=== PATIENT | female | born 1950 | race Caucasian/White ===

== ENCOUNTER → 2017-08-31 | Outpatient (CLI) | payer BC ==
[~2017-08-31] MED LIST: CLTP PO; HYDC25 PO; LISI-725 PO; MECL25TA2 PO; METF1000 PO; OXYC-57 PO; VIT D2 PO; XRL10 PO
--- NOTE | 2017-09-01 07:42 | MAMMOGRAPHY REPORT ---
BILATERAL DIGITAL SCREENING MAMMOGRAM WITH CAD: 08/31/2017 CLINICAL HISTORY: Routine screening. Patient has no complaints. TECHNIQUE: Bilateral CC and MLO views were obtained. Current study was also evaluated with a Compute r Aided Detection (CAD) system. COMPARISON: Comparison is made to exams dated: 08/28/2016 mammogram, 08/27/2015 mammogram, 08/25/2014 mammogram, 08/24/2013 mammogram, 08/23/2012 mammogram, and 11/25/2011 mammogram - [facility] enter. BREAST COMPOSITION: The tissue of both breasts is heterogeneously dense, which may obscure small mas ses. FINDINGS: There are diffuse bilateral benign-appearing round, punctate and rim calcifications, some of which are in stable groupings. No new suspicious mass, architectural distortion, asymmetry or susp icious microcalcifications is seen. IMPRESSION: ACR BI-RADS CATEGORY 2: BENIGN There is no mammographic evidence of malignancy. A 1 year screening mammogram is recommended. The pa tient will receive written notification of the results. Approximately 10% of breast cancers are not detected with mammography. A negative mammographic report should not delay biopsy if a clinically suggestive mass is present. Anaid Alexandra M.D. ay/:08/31/2017 15:25:54 Systems Applications Programming Lead: Arcelia GAGNON(R)(Alden)(BD), [facility] letter sent: Normal 1/2 BI-RADS Code: ACR BI-RADS Category 2: Benign
== END | disposition home or self-care (01) ==
LOC: C.MAMM 10:03
PROVIDERS: ATTEND Family Medicine
DX: Z12.31 Encounter for screening mammogram for malignant neoplasm of breast (principal)

== ENCOUNTER 2024-02-03 10:38 | Inpatient (IN) ==
--- NOTE | 2024-02-03 10:59 | Emergency Department Note ---
History of Present Illness General Chief complaint: Fall Stated complaint: FALL, SHOULDER DISLOCATION Time Seen by Provider: 02/03/24 10:45 Source: patient, RN notes reviewed and old records reviewed (I have reviewed the EMS notes from today) Mode of arrival: EMS Limitations: no limitations History of Present Illness This patient is 72-year-old female who was [place] [employer] today and she fell. She said she was feeling okay prior she was walking down an aisle and she said she felt like she was going to fall. She tried to reach out and touch a table and managed to fall she injured her left shoulder she also said her cheek hurt a little bit but she does not think she hit her head. She did not pass out she had no recent illness however her about a week ago and she has had some decreased appetite since then she denies any suicidal or homicidal ideations or overdose. Prior to falling she did not have any other symptoms such as diaphoresis or chest pain. Denies chest pain shortness breath or pleurisy at present. Hurts when she moves her left arm. She did receive IV fentanyl on route. No headache. no change in vision .no abdominal pain . no pain in the legs. No focal numbness or weakness Home Medications Medication Instructions Recorded Confirmed Type amlodipine 5 mg tablet 5 mg PO QPM 02/03/24 02/03/24 History aspirin 81 mg tablet,delayed 81 mg PO PM 02/03/24 02/03/24 History release atorvastatin 40 mg tablet 40 mg PO QPM 02/03/24 02/03/24 History cyanocobalamin (vitamin B-12) 1,000 mcg PO DAILY 02/03/24 02/03/24 History 1,000 mcg tablet (Vitamin B-12) hydrochlorothiazide 25 mg tablet 25 mg PO QPM 02/03/24 02/03/24 History lisinopril 40 mg tablet 40 mg PO QAM 02/03/24 02/03/24 History metformin 500 mg tablet,extended 1,000 mg PO BID 02/03/24 02/03/24 History release 24 hr repaglinide 1 mg tablet See Rx Instructions .Route .COMPLEX 02/03/24 02/03/24 History Allergies Allergy/AdvReac Type Severity Reaction Status Date / Time naproxen Allergy Unknown TACHYCARDIA, Verified 02/03/24 12:17 DIZZINESS Past Med/Surg History Medical History (Updated 02/03/24 @ 18:20 by Carl Tsai MD) Proximal humerus fracture Anxiety Diabetes Hypercholesterolemia Hypertension Surgical History (Updated 02/03/24 @ 16:49 by Rafael Serrato PA-C) No pertinent past surgical history Family History (Updated 02/03/24 @ 16:49 by Rafael Serrato PA-C) Other No pertinent family history Social History (Updated 02/03/24 @ 16:50 by Rafael Serrato PA-C) Smoking Status: Never smoker Second Hand Exposure: Yes; Do You Dip or Chew Tobacco: No; Tobacco Cessation Education Requested by Patient: No Hx Alcohol Use: No Hx Substance Use: No Preferred Language: Croatian Communication Ability: Effective Compliance Director Required: No Beliefs That Will Affect Care: None marital status: / Current Living Situation: Alone current occupational status: retired Other Information That Helps Us Care for You: No Feels Safe at Home: Yes Safety Concerns: Feels Safe At This Time Assistive Devices: Glasses Immunizations: Past medical historyhypertension, diabetes.denies that she is on a blood thinner Social historyshe was recently Review of Systems A total of 10 systems reviewed and were otherwise negative Physical Exam Vital Signs Vital Signs - 24 hr 02/03/24 10:54 02/03/24 12:00 02/03/24 12:20 Temperature 36.7 C Temperature Source Oral Pulse Rate 81 84 86 Pulse Rate from SpO2 Sensor 85 Respiratory Rate 18 17 Respiratory Effort / Characteristics Non-Labored Spontaneous Respiratory Depth Normal Respiratory Pattern Regular Blood Pressure 136/77 152/105 H Blood Pressure Mean 96 120 Pulse Oximetry 92 93 Oxygen Delivery Method Room Air Sepsis Recent Fever Within 48 Hours No Sepsis New/Unexplained Change in Mental Status N/A Sepsis Action Taken by Nursing No Action Required General: Well developed well nourished older female male who is sitting upright in bed in no acute distress, breathing comfortably on room air. Normal speech HEENT: Normal cephalic atraumatic. Pupils are equal round and reactive to light. Extraocular movements are intact. Oropharynx is pink with moist mucous membranes. No swelling of the mouth lips or tongue. Neck: Supple with a midline trachea. No meningeal signs or stiffness, no JVD or bruits. No Stridor. Chest: Clear to auscultation bilaterally. No wheezes or rhonchi. No increased work of breathing. Heart: Regular rate and rhythm without murmurs or gallops. Abdomen: Soft nontender, nondistended without rebound guarding or rigidity. Extremities: No cyanosis clubbing or edema. No calf tenderness or assymetry. She does have some significant swelling of the left shoulder and is bruised anteriorly. She has limitation movement secondary to pain distally in the hand she has normal motor and sensation and pulse with limitation secondary to pain Spine/Back. Non tender to palpation. No CVA tenderness Skin: Good turgor without rashes. Neurologic exam: Cranial nerves two through 12 are intact. Motor and sensation are intact and symmetrical throughout. Course Administered Medications Acetaminophen (Acetaminophen 500 Mg Tab) 1,000 mg PO Q8H [facility] Stop: 03/04/24 15:50 Last Admin: 02/03/24 15:54 Dose: Not Given Documented By: JOHN Insulin Aspart (Insulin Aspart Per Unit Charge) 0 units SC ACHS KAEL Stop: 03/04/24 16:29 Last Admin: 02/03/24 17:08 Dose: 5 units Documented By: SAHRA Co-signed By: JOHN Oxycodone HCl (Oxycodone Hcl Ir 5 Mg Tab (Immediate Release)) 5 mg PO Q6H PRN PRN Reason: Moderate Pain (Scale 4, 5, 6) Stop: 02/17/24 15:50 Last Admin: 02/03/24 16:26 Dose: 5 mg Documented By: SAHRA Discontinued Medications Acetaminophen (Ofirmev) 1,000 mg in 100 mls @ 400 mls/hr IV NOW STA Stop: 02/03/24 13:48 Last Infusion: 02/03/24 15:28 Dose: Infused Documented By: Admin: 02/03/24 14:08 Dose: 400 mls/hr Documented By: CHARLES Medical Decision Making Differential Diagnosis Fall, syncope, shoulder fracture, shoulder dislocation, arrhythmia, electrolyte or metabolic abnormality, depression Medical Records Attestation: I reviewed the patient's medical records. Home Medications Current Medication List: was personally reviewed by me Laboratory Data Attestation: I reviewed the patient's lab results. 02/03/24 11:21 02/03/24 11:21 Lab Results 02/03/24 Range/Units 11:21 WBC 8.62 (4.8-10.8) K/ul RBC 4.67 (4.20-5.40) M/uL Hgb 14.4 (12.0-16.0) g/dl Hct 41.8 (37.0-47.0) % MCV 89.5 (80.0-100.0) fL MCH 30.8 (25.0-34.0) pg MCHC 34.4 (32.0-36.0) g/dL RDW Std Deviation 39.7 (36.4-46.3) fL RDW Coeff of Janet 12.2 (11.5-14.5) % Plt Count 263 (130-400) K/uL MPV 10.0 (9.4-12.4) fL Immature Gran % (Auto) 0.7 % Neut % (Auto) 72.6 % Lymph % (Auto) 17.1 % Phelps % (Auto) 7.9 % Eos % (Auto) 1.2 % Baso % (Auto) 0.5 % Neut # (Auto) 6.27 (1.40-6.50) K/uL Lymph # (Auto) 1.47 (1.20-3.40) K/uL Phelps # (Auto) 0.68 H (0.11-0.59) K/uL Eos # (Auto) 0.10 (0.00-0.50) K/uL Baso # (Auto) 0.04 (0.00-0.20) K/uL Immature Gran # (Auto) 0.06 (0.01-0.20) K/uL PT 11.1 (9.0-12.0) Seconds INR 1.0 (0.9-1.1) APTT 24 (21-31) Seconds PTT Ratio 0.9 Sodium 138 (136-145) mmol/L Potassium 3.7 (3.5-5.1) mmol/L Chloride 101 (98-107) mmol/L Carbon Dioxide 28 (21-32) mmol/L Anion Gap 9 (3-11) BUN 10 (6-23) mg/dl Creatinine 0.59 L (0.6-1.2) mg/dl Est Cr Clr Drug Dosing 82.3 ml/min Est GFR ( Amer) 105.4 ml/min Est GFR (Non-Af Amer) 90.9 ml/min BUN/Creatinine Ratio 16.9 (10-20) Glucose 300 H (70-99(Fasting)) mg/dl Calcium 9.8 (8.6-10.3) mg/dl Total Bilirubin 0.8 (0.2-1.0) mg/dl AST 16 (13-39) U/L ALT 16 (7-52) U/L Alkaline Phosphatase 73 (34-104) U/L Troponin I High Sens 3.7 (0-14) pg/ml Total Protein 6.3 (6.0-8.3) gm/dl Albumin 4.1 (3.4-5.0) gm/dl Globulin 2.2 L (2.5-4.0) gm/dl Albumin/Globulin Ratio 1.9 (0.9-2) Lipase 22 (11-82) U/L Imaging Data Attestation: I personally reviewed and interpreted this imaging study as follows: My Impression: Chest x-rayno acute infiltrate, failure, pneumothorax seen. Left shoulder x-raythere is a comminuted is displaced fracture of the humeral neck. The head appears to be anatomically not dislocated Radiologist's Impression: Shoulder X-Ray 02/03/24 10:53 LEFT SHOULDER 3 VIEWS CLINICAL HISTORY: Fall. Left arm injury. FINDINGS: 3 views of the left shoulder are obtained. No prior studies are available for comparison at the time of dictation. There is a comminuted fracture of the left humeral head and neck with numerous displaced fragments. There is medial displacement of the humeral shaft by at least one shaft length as well as overriding of the fragments. Overlying soft tissue edema is noted. No additional fracture is seen. Degenerative change is noted at the glenohumeral and acromioclavicular joints. The imaged left lung parenchyma appears clear. IMPRESSION: Comminuted and displaced left humeral head/neck fracture as above. Electronically signed by: Segun Bates M.D. 02/03/2024 11:40 AM Chest X-Ray 02/03/24 10:54 XR chest 1V portable CLINICAL HISTORY: Chest pain, nonspecific COMPARISON STUDY: Chest radiograph February 05, 2012. FINDINGS: There is an acute displaced comminuted left humeral neck and head fracture. This is depicted on the left shoulder radiographs. No pneumothorax or pleural effusion is present. Patient is rotated. There is mild cardiomegaly without evidence for pulmonary edema. Mild left basilar opacity favors atelectasis. There is no consolidation to suggest pneumonia. IMPRESSION: 1. Acute comminuted displaced left humeral neck and head fracture. 2. No acute cardiopulmonary findings. ACT 112: Negative or not required by law. Electronically signed by: Musa Dai M.D. 02/03/2024 11:[address] 02/03/24 12:35 CT SCAN OF THE CERVICAL SPINE CLINICAL HISTORY: Fall. COMPARISON STUDY: No priors. TECHNIQUE: CT scan of the cervical spine is performed from the skull base to the upper thoracic spine. Images are reviewed in the axial, sagittal, and coronal planes. IV contrast was not administered for this examination. A dose lowering technique was utilized adhering to the principles of ALARA. FINDINGS: Skeletal structures: The skeletal structures are osteopenic. There is no evidence of fracture or subluxation involving the cervical spine. Vertebral body height and alignment are maintained. There is straightening of the cervical lordosis. Anterior osteophytes are seen throughout. The odontoid process and lateral masses are intact. The atlantoaxial articulation is preserved noting productive degenerative change. The spinous processes appear intact. Apparent dextrocurvature at the cervicothoracic junction may be positional. There is mild multilevel facet arthropathy. Intervertebral discs: There is only minimal degenerative disc space narrowing. Central canal: Posterior disc osteophyte complexes at C4-C5 and C5-C6 may contribute to mild acquired compromise of the central canal Soft tissues: The prevertebral and paraspinous soft tissues are within normal limits. The thyroid gland is enlarged and heterogeneous, and contains coarse calcifications. This is typical for goiter. There is atherosclerotic calcification of the carotid bulbs. Calvarium: The visualized calvarium at the skull base appears intact. Brain parenchyma: Partially visualized brain parenchyma at the skull base is within normal limits. Sinuses and mastoids: The visualized paranasal sinuses are clear. There is a right mastoid effusion. The left mastoid air cells are well pneumatized. Cerumen is noted in the external auditory canals. Lung apices: Clear as visualized. IMPRESSION: 1. There is no evidence of fracture or subluxation involving the cervical spine. 2. Osteopenia and spondylotic change as above. ACT 112: Negative or not required by law. Electronically signed by: Segun Bates M.D. 02/03/2024 1:[address] 02/03/24 12:[address] DOSE: HISTORY: fall TECHNIQUE: Multiaxial CT images of the maxillofacial region were performed and reformatted in the coronal plane without the use of contrast. A dose lowering technique was utilized adhering to the principles of ALARA. COMPARISON: None. FINDINGS: The visualized cervical spine, skull base, pterygoid plates, nasal bones, lamina papyracea, orbital floors, mandible, and zygomatic arches are intact. No fractures. The orbits are unremarkable. Scattered dermal calcifications within the forehead. IMPRESSION: No fractures within the maxillofacial region. ACT 112: Negative or not required by law. Electronically signed by: Rakesh Rivers M.D. 02/03/2024 1:[address] 02/03/24 12:35 CT OF THE HEAD WITHOUT CONTRAST CLINICAL HISTORY: Fall. COMPARISON STUDY: No previous studies for comparison. TECHNIQUE: Helical axial images of the head were obtained without IV contrast. Automated exposure control was utilized for the study. A dose lowering technique was utilized adhering to the principles of ALARA. FINDINGS: No acute intracranial hemorrhage, midline shift or mass effect is present. The ventricular system is unremarkable. The basal cisterns are patent. No extra-axial collections are present. There are no findings to suggest acute dural sinus thrombosis or acute territorial infarct. No significant calvarial abnormalities are present. Visualized portions of the sinuses and mastoid air cells are clear. IMPRESSION: 1. No acute intracranial findings. 2. No calvarial fractures. ACT 112: Negative or not required by law. Electronically signed by: Musa Dai M.D. 02/03/2024 1:45 PM ECG Data Attestation: I personally reviewed and interpreted this ECG as follows: Indication: + weakness Rate (beats per minute): 80 Rhythm: + normal sinus ECG Intervals/blocks: + Normal QRS, + Normal QT and + Normal SD ECG [place]: + Normal ECG ST segments: + Normal ST segments ECG Findings: no PACs or no PVCs Comparison ECG Date: from (02/05/2012) Change: no significant change MDM Narrative This patient comes in as scribed above she suffered a fall. She does not think she had loss of consciousness was not sure why she fell she says did not trip she just felt she was going to fall. Her shoulder is swollen and I suspect dislocated and/or fractured. The patient did receive IV fentanyl and seems resting comfortable at this point ice was applied. She was placed on a patch finisher EKG chest x-ray shoulder x-ray multiple blood testing was obtained she was reassessed frequently. X-rays show a proximal humerus fracture with displacement of the humeral neck but no dislocation at the joint. Chest x-ray was unremarkable. CAT scan of the head neck and face were unremarkable. Blood sugar was elevated at 300 however she is not acidotic and has nothing to suggest diabetic emergency. Troponin was negative EKG is nonischemic appearing. A sling was placed. I do think the patient needs to be admitted/observed as she had an episode of weakness and fell for unknown reasons as well as has a fracture of her humerus. I have consulted and discussed case at length with the [facility] who will see the patient in the ER for these measures. Continuous patch finisher: Orders placed in EMR for continuous patch finisher: Upon my evaluation patient was noted to be in normal sinus rhythm with a rate of 80 Impression & Plan Weakness, Fall, Fracture, humerus, Contusion of face Discharge Plan Visit Data Chief Complaint: Fall Stated Complaint: FALL, SHOULDER DISLOCATION ED Provider: Carl Tsai Discharge Problem: Weakness, Fall, Fracture, humerus, Contusion of face Patient Disposition: Admitted As Inpatient Discharge Instructions Interventions: ED Discharge Assessment Last Done: 02/03/24 15:39 Discharge Problem: Fall Qualifiers: Encounter type: initial encounter Qualified Code(s): W19.XXXA - Unspecified fall, initial encounter Fracture, humerus Qualifiers: Encounter type: initial encounter Humerus Location: surgical neck Fracture type: closed Fracture alignment: displaced Laterality: left Contusion of face Qualifiers: Encounter type: initial encounter Qualified Code(s): S00.83XA - Contusion of other part of head, initial encounter
--- NOTE | 2024-02-03 11:30 | XRay Report ---
XR chest 1V portable CLINICAL HISTORY: Chest pain, nonspecific COMPARISON STUDY: Chest radiograph February 05, 2012. FINDINGS: There is an acute displaced comminuted left humeral neck and head fracture. This is depicte d on the left shoulder radiographs. No pneumothorax or pleural effusion is present. Patient is rotate d. There is mild cardiomegaly without evidence for pulmonary edema. Mild left basilar opacity favors atelectasis. There is no consolidation to suggest pneumonia. IMPRESSION: 1. Acute comminuted displaced left humeral neck and head fracture. 2. No acute cardiopulmonary findings. ACT 112: Negative or not required by law. Electronically signed by: Musa Dai M.D. 02/03/2024 11:29 AM
--- NOTE | 2024-02-03 11:41 | XRay Report ---
LEFT SHOULDER 3 VIEWS CLINICAL HISTORY: Fall. Left arm injury. FINDINGS: 3 views of the left shoulder are obtained. No prior studies are available for comparison at the time of dictation. There is a comminuted fracture of the left humeral head and neck with numerou s displaced fragments. There is medial displacement of the humeral shaft by at least one shaft length as well as overriding of the fragments. Overlying soft tissue edema is noted. No additional fracture is seen. Degenerative change is noted at the glenohumeral and acromioclavicular joints. The imaged l eft lung parenchyma appears clear. IMPRESSION: Comminuted and displaced left humeral head/neck fracture as above. Electronically signed by: Segun Bates M.D. 02/03/2024 11:40 AM
[2024-02-03 11:59] LABS: Albumin Globulin Ratio 1.9 (0.9-2); Albumin Level 4.1 gm/dl (3.4-5.0); BUN Creatinine Ratio 16.9 (10-20); Basophils # (auto) 0.04 K/uL (0.00-0.20); Basophils % (auto) 0.5 %; Bilirubin,Total 0.8 mg/dl (0.2-1.0); Calcium 9.8 mg/dl (8.6-10.3); Creatinine Clr Calc Pharmacy 82.3 ml/min; Eosinophils % (auto) 1.2 %; Est GFR (African American) 105.4 ml/min; Est GFR (Non-African American) 90.9 ml/min; Globulin 2.2 gm/dl (2.5-4.0); Hematocrit (blood only) 41.8 % (37.0-47.0); Hemoglobin 14.4 g/dl (12.0-16.0); Immature Granulocytes # (auto) 0.06 K/uL (0.01-0.20); Immature Granulocytes % (auto) 0.7 %; Lymphocytes # (auto) 1.47 K/uL (1.20-3.40); Lymphocytes % (auto) 17.1 %; Mean Corpuscular Hemoglobin 30.8 pg (25.0-34.0); Mean Corpuscular Hgb Conc 34.4 g/dL (32.0-36.0); Mean Corpuscular Volume 89.5 fL (80.0-100.0); Monocytes # (auto) 0.68 K/uL (0.11-0.59); Monocytes % (auto) 7.9 %; Neutrophils # (auto) 6.27 K/uL (1.40-6.50); Neutrophils % (auto) 72.6 %; Platelet Count 263 K/uL (130-400); Potassium 3.7 mmol/L (3.5-5.1); RDW Coefficient of Variation 12.2 % (11.5-14.5); RDW Standard Deviation 39.7 fL (36.4-46.3); Red Blood Count 4.67 M/uL (4.20-5.40); Total Protein 6.3 gm/dl (6.0-8.3); White Blood Count 8.62 K/ul (4.8-10.8)
[2024-02-03 12:06] LABS: Troponin I High Sensitivity 3.7 pg/ml (0-14)
[2024-02-03 12:12] LABS: Partial Thromboplastin Ratio 0.9; Partial Thromboplastin Time 24 Seconds (21-31); Prothrombin Time 11.1 Seconds (9.0-12.0)
--- NOTE | 2024-02-03 12:50 | History & Physical Report ---
Date of Service February 03, 2024 Assessment & Plan (1) Fall: (2) Fracture, humerus: Plan: Patient is 73 year old female with PMH DM II, HTN, dyslipidemia, history of seizure disorder last seizure in 1962, GERD presented to ER complaint of fall today with subsequent left shoulder pain. In ER vitals stable, glucose 300, other electrolytes unremarkable. Troponin negative x 2. CT Head: no acute intracranial abnormality CT C-spine: no acute fracture CXR: no acute infiltrate Left shoulder xray: Comminuted and displaced left humeral head/neck fracture In ER given morphine Magnesium labs pending Echo pending NPO midnight Hold aspirin for now Ortho consult. Spoke with ecdis n navigation operator who suggested sling and swathe and ice CBC, BMP in am (3) Hyperglycemia: (4) Diabetes mellitus, type II: Plan: Random glucose 300 in ER A1c: 7.9 on 11/17/23 Hold home metformin, repaglinide Novolog sliding scale per protocol (5) Hypertension: Plan: Continue amlodipine, HCTZ, lisinopril with holding parameters (6) Hypercholesterolemia: Plan: Continue atorvastatin (7) History of seizure disorder: Plan: No history seizure since 1962 DVT Prophylaxis SCDs Full Code as per discussion with pt Follows with Dr Swift for routine care Pt was seen and care coordinated with Dr Boland. See addendum I spent a total of 78 minutes reviewing notes, outpatient records, labs, medication, coordinating, documenting and providing care for this patient excluding time spent in the performance of separately billed services. History of Present Illness Chief Complaint: Fall Primary Care Provider: Pop Swift MD Patient is 73 year old female with PMH DM II, HTN, dyslipidemia, history of seizure disorder last seizure in 1962, GERD presented to ER complaint of fall and left shoulder pain. History obtained from patient and outpatient chart review. Patient states was walking in [employer] and felt like she "was going to fall over", felt a little wobbly". Denies any vision changes, noted dizziness or lightheadedness, CP, SOB, paresthesias, speech changes. States fell onto left shoulder and after fall with significant pain to left shoulder. Doesn't think had LOC or passed out. She reports history vertigo that has symptoms of dizziness, nausea and vomiting but states did not have any vertigo symptoms today. States blood sugars have been high past week which she relates to stress. Reports her one week ago. States hasn't been eating a much. Did take her medications today. Sleeps in recliner secondary to back pain, not having any SOB or orthopnea. Denies fever/chills, diaphoresis, N/V/D/C, CESAR, neck pain, CP, SOB, orthopnea, palpitations, cough, sore throat, rhinorrhea, abdominal pain, paresthesias, weakness, extremity edema, rashes, urinary symptoms. Right hand dominant. Allergies Allergy/AdvReac Type Severity Reaction Status Date / Time naproxen Allergy Unknown TACHYCARDIA, Verified 02/03/24 12:17 DIZZINESS Home Medications Medication Instructions Recorded Confirmed Type amlodipine 5 mg tablet 5 mg PO QPM 02/03/24 02/03/24 History aspirin 81 mg tablet,delayed 81 mg PO PM 02/03/24 02/03/24 History release atorvastatin 40 mg tablet 40 mg PO QPM 02/03/24 02/03/24 History cyanocobalamin (vitamin B-12) 1,000 mcg PO DAILY 02/03/24 02/03/24 History 1,000 mcg tablet (Vitamin B-12) hydrochlorothiazide 25 mg tablet 25 mg PO QPM 02/03/24 02/03/24 History lisinopril 40 mg tablet 40 mg PO QAM 02/03/24 02/03/24 History metformin 500 mg tablet,extended 1,000 mg PO BID 02/03/24 02/03/24 History release 24 hr repaglinide 1 mg tablet See Rx Instructions .Route .COMPLEX 02/03/24 02/03/24 History Past Med/Surg History Medical History (Updated 02/03/24 @ 19:38 by Jenn Jackson PA-C) GERD (gastroesophageal reflux disease) History of seizure disorder Diabetes mellitus, type II Proximal humerus fracture Anxiety Diabetes Hypercholesterolemia Hypertension Surgical History (Updated 02/03/24 @ 19:36 by Jenn Jackson PA-C) History of cholecystectomy Family History (Updated 02/03/24 @ 19:36 by Jenn Jackson PA-C) Other Cancer Congenital kidney disease Social History Smoking Status: Never smoker Second Hand Exposure: Yes; Do You Dip or Chew Tobacco: No; Tobacco Cessation Education Requested by Patient: No Hx Alcohol Use: No Hx Substance Use: No Preferred Language: Bangladeshi Communication Ability: Effective Auditor Appraiser Required: No Beliefs That Will Affect Care: None marital status: / Current Living Situation: Alone current occupational status: retired Other Information That Helps Us Care for You: No Feels Safe at Home: Yes Safety Concerns: Feels Safe At This Time Assistive Devices: Glasses Review of Systems Review of Systems: All systems reviewed & are unremarkable except as noted in HPI & below Physical Exam Physical Exam: PE per Dr Boland Results & Data Results & Data Vital Signs (Past 12 Hours) Vital Signs Temp Pulse Resp BP Pulse Ox O2 Del Method 02/03/24 12:20 86 02/03/24 10:54 36.7 C 81 18 136/77 92 Room Air Laboratory Results Short CBC 02/03/24 Range/Units 11:21 WBC 8.62 (4.8-10.8) K/ul Hgb 14.4 (12.0-16.0) g/dl Hct 41.8 (37.0-47.0) % Plt Count 263 (130-400) K/uL BMP 02/03/24 11:21 Sodium 138 Potassium 3.7 Chloride 101 Carbon Dioxide 28 BUN 10 Creatinine 0.59 L Glucose 300 H Calcium 9.8 Liver Function 02/03/24 Range/Units 11:21 Total Bilirubin 0.8 (0.2-1.0) mg/dl AST 16 (13-39) U/L ALT 16 (7-52) U/L Alkaline Phosphatase 73 (34-104) U/L Albumin 4.1 (3.4-5.0) gm/dl Diagnostic Findings Shoulder X-Ray 02/03/24 10:53 LEFT SHOULDER 3 VIEWS CLINICAL HISTORY: Fall. Left arm injury. FINDINGS: 3 views of the left shoulder are obtained. No prior studies are available for comparison at the time of dictation. There is a comminuted fracture of the left humeral head and neck with numerous displaced fragments. There is medial displacement of the humeral shaft by at least one shaft length as well as overriding of the fragments. Overlying soft tissue edema is noted. No additional fracture is seen. Degenerative change is noted at the glenohumeral and acromioclavicular joints. The imaged left lung parenchyma appears clear. IMPRESSION: Comminuted and displaced left humeral head/neck fracture as above. Electronically signed by: Segun Bates M.D. 02/03/2024 11:40 AM Chest X-Ray 02/03/24 10:54 XR chest 1V portable CLINICAL HISTORY: Chest pain, nonspecific COMPARISON STUDY: Chest radiograph February 05, 2012. FINDINGS: There is an acute displaced comminuted left humeral neck and head fracture. This is depicted on the left shoulder radiographs. No pneumothorax or pleural effusion is present. Patient is rotated. There is mild cardiomegaly without evidence for pulmonary edema. Mild left basilar opacity favors atelectasis. There is no consolidation to suggest pneumonia. IMPRESSION: 1. Acute comminuted displaced left humeral neck and head fracture. 2. No acute cardiopulmonary findings. ACT 112: Negative or not required by law. Electronically signed by: Musa Dai M.D. 02/03/2024 11:[address] 02/03/24 12:35 CT SCAN OF THE CERVICAL SPINE CLINICAL HISTORY: Fall. COMPARISON STUDY: No priors. TECHNIQUE: CT scan of the cervical spine is performed from the skull base to the upper thoracic spine. Images are reviewed in the axial, sagittal, and coronal planes. IV contrast was not administered for this examination. A dose lowering technique was utilized adhering to the principles of ALARA. FINDINGS: Skeletal structures: The skeletal structures are osteopenic. There is no evidence of fracture or subluxation involving the cervical spine. Vertebral body height and alignment are maintained. There is straightening of the cervical lordosis. Anterior osteophytes are seen throughout. The odontoid process and lateral masses are intact. The atlantoaxial articulation is preserved noting productive degenerative change. The spinous processes appear intact. Apparent dextrocurvature at the cervicothoracic junction may be positional. There is mild multilevel facet arthropathy. Intervertebral discs: There is only minimal degenerative disc space narrowing. Central canal: Posterior disc osteophyte complexes at C4-C5 and C5-C6 may contribute to mild acquired compromise of the central canal Soft tissues: The prevertebral and paraspinous soft tissues are within normal limits. The thyroid gland is enlarged and heterogeneous, and contains coarse calcifications. This is typical for goiter. There is atherosclerotic calcification of the carotid bulbs. Calvarium: The visualized calvarium at the skull base appears intact. Brain parenchyma: Partially visualized brain parenchyma at the skull base is within normal limits. Sinuses and mastoids: The visualized paranasal sinuses are clear. There is a right mastoid effusion. The left mastoid air cells are well pneumatized. Cerumen is noted in the external auditory canals. Lung apices: Clear as visualized. IMPRESSION: 1. There is no evidence of fracture or subluxation involving the cervical spine. 2. Osteopenia and spondylotic change as above. ACT 112: Negative or not required by law. Electronically signed by: Segun Bates M.D. 02/03/2024 1:[address] 02/03/24 12:[address] DOSE: HISTORY: fall TECHNIQUE: Multiaxial CT images of the maxillofacial region were performed and reformatted in the coronal plane without the use of contrast. A dose lowering technique was utilized adhering to the principles of ALARA. COMPARISON: None. FINDINGS: The visualized cervical spine, skull base, pterygoid plates, nasal bones, lamina papyracea, orbital floors, mandible, and zygomatic arches are intact. No fractures. The orbits are unremarkable. Scattered dermal calcifications within the forehead. IMPRESSION: No fractures within the maxillofacial region. ACT 112: Negative or not required by law. Electronically signed by: Rakesh Rivers M.D. 02/03/2024 1:[address] 02/03/24 12:35 CT OF THE HEAD WITHOUT CONTRAST CLINICAL HISTORY: Fall. COMPARISON STUDY: No previous studies for comparison. TECHNIQUE: Helical axial images of the head were obtained without IV contrast. Automated exposure control was utilized for the study. A dose lowering technique was utilized adhering to the principles of ALARA. FINDINGS: No acute intracranial hemorrhage, midline shift or mass effect is present. The ventricular system is unremarkable. The basal cisterns are patent. No extra-axial collections are present. There are no findings to suggest acute dural sinus thrombosis or acute territorial infarct. No significant calvarial abnormalities are present. Visualized portions of the sinuses and mastoid air cells are clear. IMPRESSION: 1. No acute intracranial findings. 2. No calvarial fractures. ACT 112: Negative or not required by law. Electronically signed by: Musa Dai M.D. 02/03/2024 1:45 PM Supervising Physician Co-Signing Physician Notes I have seen and discussed the case with the collaborating advanced practitioner. I agree with the above H&P. I have reviewed and confirmed the patients medical history, the findings on physical examination, and the patients diagnosis and treatment plan with Olamide BOOTH and agree with the information documented. In short, Ms. Rodriguez is a 73 year old woman with history of hypertension and DMTII who is admitted due to fall and found to have left displaced humerus fracture. Patient endorses history of vertigo, but notes that she didn't feel the same vertigo symptoms as she usually does, she just felt as if she "was going to fall." Denies chest pain, palpitations, presyncope, or other issues. Notes significant interpersonal stress with recent passing of . Labs stable with glucose of 300. Imaging with displaced fracture GENERAL APPEARANCE: AxOx4, generally well-appearing female, no acute distress. HEENT: NC, AT. MMM. EOMI, clear conjunctiva, oropharynx clear. NECK: Supple without lymphadenopathy. No stiffness or restricted ROM. HEART: Normal rate and regular rhythm, normal S1/S1, no m/r/g LUNGS: CTAB, moving air well. No crackles or wheezes are heard. ABDOMEN: Soft, nontender, nondistended with good bowel sounds heard. BACK: No CVAT, no obvious deformity. EXTREMITIES: Without cyanosis, clubbing or edema. NEUROLOGICAL: Grossly nonfocal. Alert and oriented, moving all 4 extremities. CN not formally tested but appear grossly intact. Observed to ambulate with normal gait. Skin: Warm and dry without any rash. #Left humerus fracture -Conservative management at this time. Sling and swath Ortho following #Right knee effusion, likely secondary to fall -XRAY per ortho PT/OT Rest of plan as above I spent a total of 25 minutes coordinating, documenting, and providing care for this patient excluding time spent in the performance of separately billed services. All of the aforementioned completed outside of collaborating with the assigned advanced practitioner for a full treatment plan. I have reviewed the advanced practitioner's documentation, and I agree with, and take responsibility for the plan of care (1) Fall Encounter type: initial encounter Qualified Code(s): W19.XXXA - Unspecified fall, initial encounter (2) Fracture, humerus Encounter type: initial encounter Fracture alignment: displaced Fracture type: closed Humerus Location: surgical neck Laterality: left
--- NOTE | 2024-02-03 13:32 | CT Scan Report ---
CT SCAN OF THE CERVICAL SPINE CLINICAL HISTORY: Fall. COMPARISON STUDY: No priors. TECHNIQUE: CT scan of the cervical spine is performed from the skull base to the upper thoracic spine . Images are reviewed in the axial, sagittal, and coronal planes. IV contrast was not administered fo r this examination. A dose lowering technique was utilized adhering to the principles of ALARA. FINDINGS: Skeletal structures: The skeletal structures are osteopenic. There is no evidence of fracture or subl uxation involving the cervical spine. Vertebral body height and alignment are maintained. There is st raightening of the cervical lordosis. Anterior osteophytes are seen throughout. The odontoid process and lateral masses are intact. The atlantoaxial articulation is preserved noting productive degenerat armin change. The spinous processes appear intact. Apparent dextrocurvature at the cervicothoracic junc tion may be positional. There is mild multilevel facet arthropathy. Intervertebral discs: There is only minimal degenerative disc space narrowing. Central canal: Posterior disc osteophyte complexes at C4-C5 and C5-C6 may contribute to mild acquired compromise of the central canal Soft tissues: The prevertebral and paraspinous soft tissues are within normal limits. The thyroid gla nd is enlarged and heterogeneous, and contains coarse calcifications. This is typical for goiter. The re is atherosclerotic calcification of the carotid bulbs. Calvarium: The visualized calvarium at the skull base appears intact. Brain parenchyma: Partially visualized brain parenchyma at the skull base is within normal limits. Sinuses and mastoids: The visualized paranasal sinuses are clear. There is a right mastoid effusion. The left mastoid air cells are well pneumatized. Cerumen is noted in the external auditory canals. Lung apices: Clear as visualized. IMPRESSION: 1. There is no evidence of fracture or subluxation involving the cervical spine. 2. Osteopenia and spondylotic change as above. ACT 112: Negative or not required by law. Electronically signed by: Segun Bates M.D. 02/03/2024 1:30 PM
--- NOTE | 2024-02-03 13:33 | CT Scan Report ---
MAXILLOFACIAL CT CT DOSE: HISTORY: fall TECHNIQUE: Multiaxial CT images of the maxillofacial region were performed and reformatted in the cor onal plane without the use of contrast. A dose lowering technique was utilized adhering to the princ iplzia of FRANCISCO. COMPARISON: None. FINDINGS: The visualized cervical spine, skull base, pterygoid plates, nasal bones, lamina papyracea, orbital floors, mandible, and zygomatic arches are intact. No fractures. The orbits are unremarkable . Scattered dermal calcifications within the forehead. IMPRESSION: No fractures within the maxillofacial region. ACT 112: Negative or not required by law. Electronically signed by: Rakesh Rivers M.D. 02/03/2024 1:32 PM
--- NOTE | 2024-02-03 13:47 | CT Scan Report ---
CT OF THE HEAD WITHOUT CONTRAST CLINICAL HISTORY: Fall. COMPARISON STUDY: No previous studies for comparison. TECHNIQUE: Helical axial images of the head were obtained without IV contrast. Automated exposure con trol was utilized for the study. A dose lowering technique was utilized adhering to the principles o f ALARA. FINDINGS: No acute intracranial hemorrhage, midline shift or mass effect is present. The ventricular system is unremarkable. The basal cisterns are patent. No extra-axial collections are present. There are no findings to suggest acute dural sinus thrombosis or acute territorial infarct. No significant calvarial abnormalities are present. Visualized portions of the sinuses and mastoid air cells are noel ar. IMPRESSION: 1. No acute intracranial findings. 2. No calvarial fractures. ACT 112: Negative or not required by law. Electronically signed by: Musa Dai M.D. 02/03/2024 1:45 PM
[2024-02-03] MEDS: ACETAMINOPHEN 1,000 MG/100 ML VIAL IV STA (14:08)
[2024-02-03 14:30] LABS: Magnesium 1.5 mg/dl (1.7-2.4)
[2024-02-03 14:35] LABS: Troponin I High Sensitivity 5.4 pg/ml (0-14)
[2024-02-03 14:44] LABS: Thyroid Stimulating Hormone 0.322 uIu/ml (0.300-4.500)
[2024-02-03 14:55] LABS: Folate (Folic Acid),Ser orPlas > 22.30 ng/ml (>5.38)
[2024-02-03 14:56] LABS: Vitamin B12 1169 pg/ml (180-914)
[2024-02-03] MEDS ORDERED: GLUCAGON FOR INJ 1 MG VIAL SQ PRN (15:51)
[2024-02-03] MEDS ORDERED: GLUCOSE 10 TAB/TUBE PO PRN (15:51)
[2024-02-03] MEDS ORDERED: MAGNESIUM HYDROXIDE SUSP 30 ML UDC PO PRN (15:51)
[2024-02-03] MEDS ORDERED: GLUCOSE 40% GEL 15 GM TUBE PO PRN (15:51)
[2024-02-03] MEDS ORDERED: CARBOHYDRATES FOR HYPOGLYCEMIA PO PRN (15:51)
[2024-02-03] MEDS ORDERED: ONDANSETRON INJ 2 MG/ML 2 ML VIAL IV PRN (15:51)
[2024-02-03] MEDS ORDERED: DEXTROSE 50% 50 ML SYRINGE IV PRN (15:51)
[2024-02-03] MEDS ORDERED: NALOXONE HCL 0.4 MG/1 ML VIAL/CARP IV PRN (15:51)
[2024-02-03] MEDS ORDERED: MoRPHine SULFATE 2 MG/ML CARP IV PRN (15:51)
[2024-02-03] MEDS: ACETAMINOPHEN 500 MG TAB PO SCH (15:54)
[2024-02-03] MEDS: oxyCODONE HCL IR 5 MG TAB (IMMEDIATE RELEASE) PO PRN (16:26)
--- NOTE | 2024-02-03 16:47 | Orthopedic Consultation ---
<Statement entered by Asher Padilla MD - 02/03/24 18:18> Patient seen and evaluated. For further details refer to PA's dictation. Fell for unknown reasons shopping today. Recently lost her . Left shoulder pain and right knee pain. Gauri has dictated the knee exam separately. We will check x-rays of the right knee. Apply ice. In regards to her left shoulder she has a bruise anteriorly with swelling. The scapula and clavicle are nontender. The elbow forearm and hand are nontender. Her sling and swath is position properly. Elevate and ice. Median radial and ulnar motor and sensory functions intact full movement of fingers radial pulse 1+. Tenderness of the proximal humerus. This is her nondominant extremity. Radiographs demonstrate a displaced proximal humerus fracture. There is no dislocation. Some angulation but reasonable bony contact and alignment. Probably would be improved with an elbow forward position and abduction and inte rnal rotation. At this time recommend nonoperative management with sling and swath. There is a possibility that we may need to proceed onto surgical intervention but nothing that needs to be done acutely. We will continue to monitor the patient and follow-up x-rays. Ice the shoulder and use sling and swath. Check vitamin D level and eventually will need bone density test if once not been completed previously. Date of Consultation February 03, 2024 Assessment & Plan (1) Fracture, humerus: The patient was evaluated in her room. Conservative care measures were discussed. She has significant displacement. She states she is not very active, but does use her left arm for daily activities. She does not want to live with her current level discomfort even if it means having surgery. She will be seen by Dr. Padilla to discuss surgical intervention further. Continue with ice and immobilization for pain control. She is currently in a sling and swath. Leave this in place. Continue with ice and elevation. Continue with oral pain medication. Perform gentle wrist and digit motion daily. (2) Effusion, right knee: Will get an xray of her right knee. She may continue to Weight bear as tolerated right lower extremity. ROM as tolerated. Ice to right knee as needed for pain/swelling. Will re-eval knee tomorrow and follow up on xrays. History of Present Illness Reason for Consultation: Left proximal humeral fracture Attending Physician: Kierra Boland MD History of Present Illness This 73-year-old female with a history of diabetes, hypertension, elevated cholesterol, and anxiety, is seen today in her room. The patient fell earlier today while at [employer]. She is unsure what made her fall. She believes she put her left arm out to brace herself. She landed on the left shoulder. She denies any loss of conscious. The patient had immediate onset of pain in her left shoulder, was transported to the ED by ambulance. Films there revealed a displaced proximal humerus fracture. She was also hyperglycemic. The patient was admitted for further management. She currently states there is only soreness in the shoulder as long as it is not moved. Pain increases significantly with any attempted motion. She is currently in a sling and swath. No numbness or tingling. [id number]. No prior history of any fractures. She states she is mostly sedentary and does not perform much activity. However, she would not want to live with her current level of discomfort. She is also complaining of right knee pain. She is unsure if she landed on it when she fell. She states it's just now starting to bother her. Only bothers her with walking. No pain at rest. History of previous "meniscus surgery" right knee years ago, in which she developed post op "scar tissue" and stiffness. Allergies Allergy/AdvReac Type Severity Reaction Status Date / Time naproxen Allergy Unknown TACHYCARDIA, Verified 02/03/24 12:17 DIZZINESS Home Medications Medication Instructions Recorded Confirmed Type amlodipine 5 mg tablet 5 mg PO QPM 02/03/24 02/03/24 History aspirin 81 mg tablet,delayed 81 mg PO PM 02/03/24 02/03/24 History release atorvastatin 40 mg tablet 40 mg PO QPM 02/03/24 02/03/24 History cyanocobalamin (vitamin B-12) 1,000 mcg PO DAILY 02/03/24 02/03/24 History 1,000 mcg tablet (Vitamin B-12) hydrochlorothiazide 25 mg tablet 25 mg PO QPM 02/03/24 02/03/24 History lisinopril 40 mg tablet 40 mg PO QAM 02/03/24 02/03/24 History metformin 500 mg tablet,extended 1,000 mg PO BID 02/03/24 02/03/24 History release 24 hr repaglinide 1 mg tablet See Rx Instructions .Route .COMPLEX 02/03/24 02/03/24 History Patient History Medical History (Updated 02/03/24 @ 19:38 by Jenn Jackson PA-C) GERD (gastroesophageal reflux disease) History of seizure disorder Diabetes mellitus, type II Proximal humerus fracture Anxiety Diabetes Hypercholesterolemia Hypertension Surgical History (Updated 02/03/24 @ 19:36 by Jenn Jackson PA-C) History of cholecystectomy Family History (Updated 02/03/24 @ 19:37 by Jenn Jackson PA-C) Other Cancer Congenital kidney disease Social History Smoking Status: Never smoker Second Hand Exposure: Yes; Do You Dip or Chew Tobacco: No; Tobacco Cessation Education Requested by Patient: No Hx Alcohol Use: No Hx Substance Use: No Preferred Language: German Communication Ability: Effective Electron Gun Inspector Required: No Beliefs That Will Affect Care: None marital status: / Current Living Situation: Alone current occupational status: retired Other Information That Helps Us Care for You: No Feels Safe at Home: Yes Safety Concerns: Feels Safe At This Time Assistive Devices: Glasses Review of Systems Review of Systems: All systems reviewed & are unremarkable except as noted in HPI & below Physical Exam Physical Exam: General: Well-developed, well-nourished, elderly female, in no acute distress. Sitting in a chair. Currently eating dinner with her right hand. Skin: Warm and dry with good turgor. No rashes. She has extensive ecchymosis and edema present over the anterior aspect of her left shoulder. No open wound s. Musculoskeletal: Left shoulder evaluation reveals the above-stated ecchymosis and edema. No motion was attempted of the shoulder secondary to pain. She has significant discomfort with palpation around the proximal humerus. She has intact motor function to her digits and wrist without significant discomfort. Attempts at flexion and extension of the elbow causes pain at the shoulder. She is able to supinate and pronate with minimal discomfort. Full range of motion of the digits. Strength is 5/5 for resisted flexion, extension, and abduction. Thumb circumduction and opposition are intact. She is able to bend her thumb and wrist. Right knee is nontender to palpation. Small effusion right knee. Skin intact, from what I can see from her jeans. Old incisions anterior knee healed. nontender over patella, medial or lateral joint line. Tib/fib nontender. Edema bilateral ankles, equal bilaterally. Able to straighten knee to 10 degrees of extension, extensor mechanism intact. Flexion to about 80 degrees (which she states is normal for her) Strength 5/5. Right ankle nontender, ankle strength 5/5. Calf supple and nontender. stable ligamentous exam today. Tolerates gentle IR and ER of right hip without discomfort. No visible ecchymosis. Nontender right thigh. Neurologic: Gross sensation is intact across the left arm by soft touch. Radial, median, and ulnar nerve functions are intact for both motor and sensory. Peripheral pulses are 2+. Results & Data Vital Signs (Past 12 Hours) Vital Signs Temp Pulse Pulse Resp BP BP Pulse Ox 02/03/24 16:23 98 H 02/03/24 15:53 02/03/24 15:53 36.6 C 78 16 158/81 H 93 02/03/24 15:30 80 18 150/86 H 94 02/03/24 14:24 88 20 126/83 93 02/03/24 12:20 86 02/03/24 12:00 84 17 152/105 H 93 02/03/24 10:54 36.7 C 81 18 136/77 92 O2 Del Method 02/03/24 16:23 02/03/24 15:53 Room Air 02/03/24 15:53 Room Air 02/03/24 15:30 02/03/24 14:24 Room Air 02/03/24 12:20 02/03/24 12:00 02/03/24 10:54 Room Air Diagnostic Findings Shoulder x-ray, chest x-ray, head CT, facial CT, and cervical spine CT, were obtained today in the ED. These were all reviewed. There is no evidence for acute intracranial injury. No fractures of the calvarium are noted. Facial bones are intact without fracture. Cervical spine is also unremarkable. No evidence for fracture or subluxation of the vertebrae. Osteopenia is noted. There is a right mastoid effusion. Her chest film shows no acute cardiopulmonary findings. The shoulder films show a comminuted and displaced humeral head/neck fracture with multiple fragments. Medial displacement of the shaft by at least 1 shaft width. Xray right knee ordered/pending. (1) Fracture, humerus Encounter type: initial encounter Fracture type: closed Humerus Location: surgical neck
[2024-02-03] MEDS: INSULIN ASPART PER UNIT CHARGE SC SCH (17:08)
--- NOTE | 2024-02-03 19:33 | Electrocardiogram Report ---
Test Reason : Blood Pressure : / mmHG Vent. Rate : 080 BPM Atrial Rate : 080 BPM P-R Int : 126 ms QRS Dur : 088 ms QT Int : 394 ms P-R-T Axes : 021 -24 019 degrees QTc Int : 454 ms Normal sinus rhythm Poor R wave progression, consider anterior ID vs. lead placement vs. LVH Abnormal ECG When compared with ECG of 05-FEB-2012 09:57, No significant change was found Confirmed by Miguel Sherwood ([id number]) on 02/03/2024 7:33:38 PM Referred By: REFERRED SELF Confirmed By:Navneet Sherwood
--- NOTE | 2024-02-03 19:46 | XRay Report ---
XR knee RT 3V CLINICAL HISTORY: Right knee pain. COMPARISON: None FINDINGS: Alignment of the right knee is anatomic. No acute fractures are identified. Moderate right knee joint effusion is suspected. There is severe tricompartmental right knee osteophytosis with mod erate to severe joint space narrowing. IMPRESSION: 1. Severe tricompartmental osteoarthritis of the right knee. 2. No acute fractures. 3. Suspected moderate size joint effusion. ACT 112: Negative or not required by law. Electronically signed by: Musa Dai M.D. 02/03/2024 7:44 PM
--- OUTSIDE RECORDS SUMMARY | 2024-02-03 20:00 | External Medical Summary | Summary of Care ---
Author Name Unknown Organization [facility] Address [address] [facility] [place] [address] Phone [phone] Care Team Providers Care Research Software Engineer Name Role Phone Pop Swift MD Primary Care Provider [phone] Reason for Visit * Reason Comments Follow Up 6 month return Encounter Details Date Type Department Care Team (Late st Contact Info) Description 11/20/2023 9:40 AM EST [facility] [address] [place] [address] Pop Swift MD [address] [place] [address] Type 2 diabetes mellitus with hemoglobin A1c goal of less than 8.0% (FORMERLY [facility])*; Mixed dyslipidemia; HTN, goal below 150/90 Allergies Active Allergy Reactions Criticality Noted Date Comments Naproxen 05/15/2000 "heart races" documented as of this encounter (statuses as of 11/20/2023) Medications Medication Sig Dispensed Refills Start Date End Date Status LANCETS MISCIndications:DM type 2, goal A1c below 7 as directed 150 Box 3 11/25/2013 Active ASPIRIN EC 81 MG PO TBECIndications:ta kes in the evening Take by mouth. Indications: takes in the evening 30 Tab 11 11/25/2013 Active MECLIZINE HCL 25 MG PO TABSIndications:Ve rtigo One pill by mouth up to 3 times a day as needed for dizziness 30 Tab 1 11/29/2014 Active NATURAL SUPPLEMENTIndicati ons:Doterra Cellular Vitality Complex Take by mouth daily. 0 Active NATURAL SUPPLEMENTIndicati ons:Micro plex food Nutrient Complex Vm Take by mouth daily. 0 Active NATURAL SUPPLEMENTIndicati ons:Xeo Juarez Essential Oil [place] Complex Take by mouth daily. 0 Active B-12 1000 MCG Oral TabletIndications: B12 deficiency 1 daily 0 04/04/2022 Active Cyclobenzaprine HCl 5 MG Oral Tablet (Flexeril)Reannati ons:Spasm of muscle Take by mouth 1 Tablet as needed in the morning AND 1 Tablet as needed at noon AND 1 Tablet as needed in the evening for Muscle spasms. Do all this for up to 3 doses. 3 Tablet 0 07/16/2022 Active Additional Information Patient not taking.Reported on 05/14/2023 OneTouch Verio In Vitro Strip (Glucose Blood)Indications: Type 2 diabetes mellitus with hemoglobin A1c goal of less than 8.0% (HCC) Use up to 4 times a day E11.9 100 Strip 11 11/20/2023 Active metFORMIN HCl ER 500 MG Oral Tablet Extended Release 24 Hour (Glucophage XR)Indications:Typ e 2 diabetes mellitus with hemoglobin A1c goal of less than 8.0% (HCC) 2 tabs twice daily 360 Tablet 2 11/20/2023 Active Repaglinide 1 MG Oral Tablet (Prandin)Indicatio ns:Type 2 diabetes mellitus with hemoglobin A1c goal of less than 8.0% (HCC) TAKE 1 TABLET 15 MINS PRIOR TO 2 LARGEST MEALS OF THE DAY 180 Tablet 0 11/20/2023 Active amLODIPine Besylate 5 MG Oral Tablet (Norvasc)Indicatio ns:HTN, goal below 150/90 Take 1 Tablet by mouth in the morning. 90 Tablet 2 11/20/2023 Active Atorvastatin Calcium 40 MG Oral Tablet (Lipitor)Indicatio ns:Mixed dyslipidemia Take 1 Tablet by mouth in the morning. 90 Tablet 2 11/20/2023 Active hydroCHLOROthiazid e 25 MG Oral Tablet (Hydrodiuril)Indic ations:HTN, goal below 150/90 Take 1 Tablet by mouth in the morning. 90 Tablet 0 11/20/2023 Active Lisinopril 40 MG Oral TabletIndications: HTN, goal below 150/90 Take 1 Tablet by mouth in the morning. 90 Tablet 3 11/20/2023 Active OneTouch Ultra Blue In Vitro Strip (Glucose Blood) Use twice daily 200 Strip 2 04/04/2022 4 Discontinue d(Medicatio n List Clean Up) Blood Glucose Test In Vitro StripIndications:T ype 2 diabetes mellitus with hemoglobin A1c goal of less than 8.0% (HCC) Test twice daily Dx: E11.9 180 Strip 3 12/03/2022 4 Discontinue d(Medicatio n List Clean Up) Lisinopril 40 MG Oral TabletIndications: HTN, goal below 150/90 Take 1 Tablet by mouth in the morning. 90 Tablet 3 03/30/2023 4 Discontinue d(Refill) metFORMIN HCl ER 500 MG Oral Tablet Extended Release 24 Hour (Glucophage XR) 2 tabs twice daily 360 Tablet 2 04/25/2023 4 Discontinue d(Refill) amLODIPine Besylate 5 MG Oral Tablet (Norvasc) Take 1 Tablet by mouth in the morning. 90 Tablet 2 04/25/2023 4 Discontinue d(Refill) Atorvastatin Calcium 40 MG Oral Tablet (Lipitor)Indicatio ns:Mixed dyslipidemia Take 1 Tablet by mouth in the morning. 90 Tablet 2 04/25/2023 4 Discontinue d(Refill) Repaglinide 1 MG Oral Tablet (Prandin)Indicatio ns:Type 2 diabetes mellitus with hemoglobin A1c goal of less than 8.0% (HCC) TAKE 1 TABLET 15 MINS PRIOR TO 2 LARGEST MEALS OF THE DAY 180 Tablet 0 09/24/2023 4 Discontinue d(Refill) hydroCHLOROthiazid e 25 MG Oral Tablet (Hydrodiuril)Indic ations:HTN, goal below 150/90 Take 1 Tablet by mouth in the morning. 90 Tablet 0 09/24/2023 4 Discontinue d(Refill) documented as of this encounter (statuses as of 11/20/2023) Active Problems Problem Noted Date Diagnosed Date History of seizure disorder 06/14/2018 B12 deficiency 12/19/2017 Type 2 diabetes mellitus wit h hemoglobin A1c goal of less than 8.0% 11/26/2015 Overview: ICD-10 update of inactive term HTN, goal below 140/90 12/18/2014 Vitamin D deficiency 12/17/2012 DYSLIPIDEMIA, GOAL LDL BELOW 100 09/27/2009 Overview: Per Lipid Taxonomy. NONTOX MULTINODUL GOITER 04/14/2007 ADVANCE DIRECTIVE INFORMATION 09/02/2005 Overview: No, Advance Directive brochure offered , patient declined. Reflux esophagitis documented as of this encounter (statuses as of 11/20/2023) Resolved Problems Problem Noted Date Diagnosed Date Resolved Date Type 2 diabetes mellitus with polyneuropathy 0 05/20/2023 HTN, goal below 140/80 06/07/201211/29 Overview: Per HTN Protocol #27. HTN, GOAL BELOW 130/80 11/14/200906/10 Overview: Per HTN Taxonomy. Type 2 diabetes mellitus wit h hemoglobin A1c goal of less than 7.0% 08/16/2009 11/26/2015 Overview: Per Diabetes Taxonomy. ICD-10 update of inactive term Type 2 diabetes mellitus wit h hemoglobin A1c goal of less than 7.0% 04/28/2007 08/16/2009 Overview: Per Diabetes Taxonomy. ICD-10 update of inactive term Acute conjunctivitis 12/17/2004 009 Overview: Resolved per Benign Acute Dxs Protocol #3 ACUTE URI NOS 12/17/2004 12/07/2008 Overview: Resolved per Benign Acute Dxs Protocol #3 Epistaxis 12/17/2004 04/08/2017 ABN BLOOD CHEMISTRY NEC 07/09/200410/20 Overview: Resolved per Duplicate Protocol #2. BENIGN NATALIA SKIN LEG 10/24/2002 04/08/20 17 ABN BLOOD CHEMISTRY NEC 09/29/200203/20 SKIN HYPERTRO-ATROPH NOS 08/09/2002 HTN, goal below 140/90 11/14 Overview: Per HTN Taxonomy. GENERALIZED CONVULSIVE EPILE PSY; WITHOUT MENTION OF INTRACTABLE EPILEPSY 06/14/20 18 Mixed dyslipidemia 9 Overview: Per Lipid Taxonomy. documented as of this encounter (statuses as of 11/20/2023) Immunizations Name Administration Dates Next Due COVID-19 mRNA, LNP-s, No Pre serve, 2-Dose Series (Siri) 08/21/2021,02/08/2021,01/18/2021 Pneumococcal Conjugate Vacc, 13 Valent (Prevnar) 11/26/2015 Pneumococcal Polysaccharide PPV23 (Pneumovax) 12/12/2016,04/14/2007 Seasonal Influenza, PF, 6 M & above, IM , (FluLaval or Fluzone) 08/10/2018,08/10/2017 Seasonal Influenza, Quadriva lent Hd (Fluzone Hd) 08/20/2023,07/26/2022,07/06/2021 Seasonal Influenza, Quadriva lent, No Preserve, IM 07/18/2020 Seasonal Influenza, Split, I IV3, With Preserve, Inj 09/07/2008(Deferred: Patient Refused) TD - Tetanus/Diptheria (ADULT) 12/01/2005 TDAP (age 10 and older)(Boostrix) 11/29/2014 Zoster Vaccine Recombinant (Shingrix) 11/24/2019 ,08/16/2019 documented as of this encounter Social History Tobacco Use Types Packs/Day Years Used Date Smoking Tobacco: Never Passive Smoke Exposure: Current Smokeless Tobacco: Never Tobacco Cessation:Counseling Given: Not Answered Alcohol Use Standard Drinks/Week Comments No 0 (1 standard drink = 0.6 oz pur e alcohol) PHQ-2 Answer Date Recorded PHQ Adult Total Score 0 05/14/2023 Hunger Vital Sign Answer Date Recorded Within the past 12 months, y ou worried that your food would run out before you got the money to buy more. Never true 05/14/20 23 Within the past 12 months, t he food you bought just didn't last and you didn't have money to get more. Never true 05/14/2023 Sex and Gender Information Value Date Recorded Sex Assigned at Female 02/22/2019 10:43 AM EDT Gender Identity Female 02/22/2019 10:43 AM EDT Sexual Orientation Not on file Job Start Date Occupation Industry Not on file Not on file Not on file documented as of this encounter Last Filed Vital Signs Vital Sign Reading Time Taken Comments Blood Pressure 106/76 11/20/2023 9:23 AM EST Pulse 87 11/20/2023 9:23 AM EST Temperature 36.6 C (97.8 F) 11/20/2023 9:23 AM ES T Respiratory Rate 16 11/20/2023 9:23 AM EST Oxygen Saturation 95% 11/20/2023 9:23 AM EST Inhaled Oxygen Concentration - - Weight 75.8 kg (167 lb 3.2 oz) 11/20/2023 9:23 A M EST Height 157.5 cm (5' 2") 11/20/2023 9:23 AM EST Body Mass Index 30.58 11/20/2023 9:23 AM EST documented in this encounter Progress Notes * Pop Swift MD - 11/20/2023 9:50 AM EST Subjective: Miladys Rodriguez is a 73 year old female. Chief Complaint Patient presents with Follow Up 6 month return HPI: Routine six-month return visit. Past medical history that includes type 2 diabetes dyslipidemia and hypertension. She has a distant history of seizure disorder but has not been on antiseizure medicines in years. She notes no change in her overall health status. She is now on metformin ER 2 tablets twice a day and repaglinide twice daily. Not bothered with chest pain or shortness of breath orheart racing. No regular heartburn Patient Active Problem List Diagnosis Code Reflux esophagitis K21.00 ADVANCE DIRECTIVE INFORMATION NONTOX MULTINODUL GOITER E04.2 DYSLIPIDEMIA, GOAL LDL BELOW 100 E78.5 Vitamin D deficiency E55.9 HTN, goal below 140/90 I10 Type 2 diabetes mellitus with hemoglobin A1c goal of less than 8.0% ([facility]LY [facility]) E11.9 B12 deficiency E53.8 History of seizure disorder Z86.69 Current Outpatient Medications Medication Sig Dispense Refill LANCETS MISC as directed 150 Box 3 ASPIRIN EC 81 MG PO TBEC Take by mouth. Indications: takes in the evening 30 Tab 11 MECLIZINE HCL 25 MG PO TABS One pill by mouth up to 3 times a day as needed for dizziness 30 Tab 1 NATURAL SUPPLEMENT Take by mouth daily. NATURAL SUPPLEMENT Take by mouth daily. NATURAL SUPPLEMENT Take by mouth daily. B-12 1000 MCG Oral Tablet 1 daily OneTouch Verio In Vitro Strip (Glucose Blood) Use up to 4 times a day E11.9 100 Strip 11 metFORMIN HCl ER 500 MG Oral Tablet Extended Release 24 Hour (Glucophage XR) 2 tabs twice daily 360Tablet 2 Repaglinide 1 MG Oral Tablet (Prandin) TAKE 1 TABLET 15 MINS PRIOR TO 2 LARGEST MEALS OF THE DAY 180 Tablet 0 amLODIPine Besylate 5 MG Oral Tablet (Norvasc) Take 1 Tablet by mouth in the morning. 90 Tablet 2 Atorvastatin Calcium 40 MG Oral Tablet (Lipitor) Take 1 Tablet by mouth in the morning. 90 Tablet 2 hydroCHLOROthiazide 25 MG Oral Tablet (Hydrodiuril) Take 1 Tablet by mouth in the morning. 90 Tablet 0 Lisinopril 40 MG Oral Tablet Take 1 Tablet by mouth in the morning. 90 Tablet 3 Cyclobenzaprine HCl 5 MG Oral Tablet (Flexeril) Take by mouth 1 Tablet as needed in the morning AND1 Tablet as needed at noon AND 1 Tablet as needed in the evening for Muscle spasms. Do all this forup to 3 doses. (Patient not taking: Reported on 05/14/2023) 3 Tablet 0 No current facility-administered medications for this visit. Review of patient's allergies indicates: Allergen Reactions Naproxen "heart races" Objective: BP 106/76 | Pulse 87 | Temp 36.6 C (97.8 F) (Temporal Artery) | Resp 16 | Ht 1.575 m (5' 2") | Wt 75.8 kg (167 lb 3.2 oz) | LMP 02/27/2003 | SpO2 95% | BMI 30.58 kg/m | BSA 1.82 m Physical Exam: CONST: alert, pleasant, no acute distress HEAD: normocephalic, atraumatic NECK: supple, soft, no adenopathy EARS: canals normal, TMs normal NARES: clear Eyes - PERRLA, EOM'I OROPHARYNX: clear, no swelling or erythema, moist CV: regular rate and rhythm, no murmur CHEST: clear to auscultation bilaterally, no rales or wheezing ABD: soft, non tender, non distended, no masses or hepatosplenomegaly EXT: no edema, no joint swelling or deformities, NEURO: AAOx3, no gross focal deficits, cerebellar signs normal, affect appropriate MENTAL STATUS: no evidence of thought disorder, no delusional thought, no evidence of paranoia, thought is non-tangential. SKIN: no rash or significant lesions ASSESSMENT/PLAN: Type 2 diabetes mellitus with hemoglobin A1c goal of less than 8.0% ([facility]LY [facility]) - HEMOGLOBIN A1C; Future; Expected date: 11/20/2023 - OneTouch Verio In Vitro Strip (Glucose Blood); Use up to 4 times a day E11.9 - metFORMIN HCl ER 500 MG Oral Tablet Extended Release 24 Hour (Glucophage XR); 2 tabs twice daily - Repaglinide 1 MG Oral Tablet (Prandin); TAKE 1 TABLET 15 MINS PRIOR TO 2 LARGEST MEALS OF THE DAY Mixed dyslipidemia - Atorvastatin Calcium 40 MG Oral Tablet (Lipitor); Take 1 Tablet by mouth in the morning. HTN, goal below 150/90 - amLODIPine Besylate 5 MG Oral Tablet (Norvasc); Take 1 Tablet by mouth in the morning. - hydroCHLOROthiazide 25 MG Oral Tablet (Hydrodiuril); Take 1 Tablet by mouth in the morning. - Lisinopril 40 MG Oral Tablet; Take 1 Tablet by mouth in the morning. Follow Up: Return in about 6 months (around 05/20/2024) for Return with Physician, Labs 2-5 Days Before Next Visit. | For: Return with Physician, Labs 2-5 Days Before Next Visit Pop Swift MD documented in this encounter Nursing Notes * Amira Terrazas CCMA - 11/20/2023 9:23 AM EST Miladys Rodriguez is a 73 year old female who presents today for Chief Complaint Patient presents with Follow Up 6 month return documented in this encounter Plan of Treatment Upcoming Encounters Date Type Department Care Team (Late st Contact Info) Description 05/17/2024 9:00 AM EDT Nurse Only Ancillary Department, [address] [phone] [place], Nurse Annual Wellness [address], [place] [id number] 05/20/2024 9:00 AM EDT Laboratory Laboratory, [place] [address] [place] [id number] [facility] [address] [place] [address] 05/25/2024 10:20 AM EDT Office Visit Family Practice, [place] [address] [place] [address] Pop Swift MD [address] [place] [address] Scheduled Orders Name Type Priority Associated Diagnoses Orde r Schedule HEMOGLOBIN A1C Lab Routine Type 2 diabetes mellitus with hemoglobin A1c goal of less than 8.0% (HCC) Expected: 11/20/2023 (Approximate), Expires: 11/19/2024 Scheduled Procedures Name Priority Associated Diagnoses Date/Ti me COLONOSCOPY FLEXIBLE PROXIMAL DIAGNOSTIC Recall History of colon polyps Health Maintenance Due Date Last Done Comments Hepatitis B (1 of 3 - Risk 3-dose series) 2010 COVID-19 Vaccine ( season) 2023 08/21/2021, 02/08/2021, 01/18/2021 Depression Screening 05/14/2024 05/14/2023 Diabetic Foot Exam 05/14/2024 05/14/2023, 0 04/01/2021, 05/08/2020, Additional history exists HbA1c 05/17/2024 11/17/2023, 0710/2022, 09/22/2022, Additional history exists Albumin/Creatinine Ratio 05/18/2024 023, 03/28/2022, 06/14/2019, Additional history exists COLONOSCOPY-EVERY 5 YRS AGES 18-100 09/06/2024 09/06/2019, 09/06/2019, 07/27/2009 Diabetic Eye Exam 09/29/2024 09/29/2023, , 09/24/2021, Additional history exists Mammogram 10/06/2024 10/06/2023, 09/18, 09/25/2021, Additional history exists B-12 11/17/2024 11/17/2023, 12/0 02/2022, 11/01/2021, Additional history exists GFR 11/17/2024 11/17/2023, 09/19, 09/26/2021, Additional history exists DTaP,Tdap,and Td Vaccines (2 - Td or Tdap) 11/29/2024 11/29/2014, 12/01/2005, 03/20/1994 Lipid Panel 11/17/2028 11/17/2023, 09/19, 09/26/2021, Additional history exists DXA Scan 02/18/2029 02/18/2022, 01/17, 10/11/2009, Additional history exists Pneumococcal Vaccine: 65+ Years Completed 12/12/2016, 11/26/2015, 04/14/2007, Additional history exists Zoster Vaccines Completed 11/24/2019, 08/16/2019 Influenza Vaccine (FLU shot) Completed 11/2022, 07/26/2022, 07/06/2021, Additional history exists GARDASIL-HPV IMMUNIZATION SERIES Aged Out No longer eligible based on patient's age to complete this topic MENINGOCOCCAL (MENACTRA/MENVEO) Aged Out No longer eligible based on patient's age to complete this topic documented as of this encounter Medical Devices Not on filedocumented as of this encounter Visit Diagnoses Diagnosis Type 2 diabetes mellitus with hemoglobin A1c goal of less than 8.0% ([facility]LY [facility])- Primary Mixed dyslipidemia Mixed hyperlipidemia HTN, goal below 150/90 documented in this encounter Care Teams Research Software Engineer Relationship Specialty Start Date End Date Pop Swift MD [address] [place] [facility] [place] [address] PCP - General Family Medicine 12/15/18 documented as of this encounter
--- OUTSIDE RECORDS SUMMARY | 2024-02-03 20:00 | External Medical Summary ---
Author Name Unknown Address Unknown Organization [id number]:LABORATORY [facility] - [address] [place] [address] Laboratory Report Ordering Provider Test Date Status WILLI LYLES 11/17/2023 08:27:22 Final Observation Date Value Abnormality Reference (Units ) Status Vitamin B12 11/17/2023 08:27:22 [id number] (pg/mL) Final Performing Location LABORATORY [facility] - [address] [place] [address]
--- OUTSIDE RECORDS SUMMARY | 2024-02-03 20:00 | External Medical Summary ---
Author Name Unknown Address Unknown Organization [id number]:[facility] - [address] [place] [address] Laboratory Report Ordering Provider Test Date Status WILLI LYLES 11/17/2023 08:27:22 Final Observation Date Value Abnormality Reference (Units ) Status Triglyceride 11/17/2023 08:27:22 130 <=174 ( mg/dL) Final Triglyceride Reference Range s (mg/dL):
<150 Acceptable
150-174 Borderline high
175-499 High
>=500 Very high Cholesterol 11/17/2023 08:27:22 149 <200 (mg /dL) Final Total Cholesterol Reference Ranges (mg/dL):
<200 Desirable
200-239 Borderline high
>=240 High HDL 11/17/2023 08:27:22 56 >49 (mg/dL ) Final HDL Cholesterol Reference Ra nges (mg/dL):
>=60 High (Desirable)
<50 Low (Undesirable) For Females
<40 Low (Undesirable) For Males NON-HDL CHOLESTEROL 11/17/2023 08:27:22 93 <=159 (mg/dL) Final Non-HDL Cholesterol Referenc e Range (mg/dL):
<100 Target level for high risk ASCVD patient
<130 Optimal for general population
130-159 Near optimal for general population
160-189 Borderline High
190-219 High
>=220 Very High LDL, (calculated) 11/17/2023 08:27:22 67 <= 129 (mg/dL) Final LDL Cholesterol Reference Ra nges (mg/dL):
<70 Target level for high risk ASCVD patient
<100 Optimal for general population
100-129 Near optimal for general population
130-159 Borderline high
160-189 High
>=190 Very high Performing Location LABORATORY [facility] - [address] [facility] [address]
--- OUTSIDE RECORDS SUMMARY | 2024-02-03 20:00 | External Medical Summary ---
Author Name Unknown Address Unknown Organization [id number]:LABORATORY [facility] - [address] [facility] [address] Laboratory Report Ordering Provider Test Date Status WILLI LYLES 11/17/2023 08:27:22 Final Observation Date Value Abnormality Reference (Units ) Status HbA1C 11/17/2023 08:27:22 7.9 Above high normal 4. 0-5.6 (%) Final The use of HbA1c to monitor glycemic status is based on normal hemoglobin and HbA composition. This test should not be used in patients with abnormal hemoglobin that affects the half life of the red blood cell or the in vivo glycation rates. Glucose, estimated average 11/17/2023 08:27:22 180 Above high normal <126 (mg/dL) Kj sesay Performing Location LABORATORY [facility] - [address] [facility] [address]
--- OUTSIDE RECORDS SUMMARY | 2024-02-03 20:00 | External Medical Summary | Summary of Care ---
Author Name Unknown Organization [facility] Address [address] [facility] [address] Phone [phone] Care Team Providers Care Streaming Media Specialist Name Role Phone Pop Swift MD Primary Care Provider [phone] Reason for Visit * Reason Onset Date Comments Health Maintenance 12/14/2023 Encounter Details Date Type Department Care Team (Late st Contact Info) Description 12/14/[address] [address] [facility] [place] [address] Pop Swift MD [address] [place] [address] Health Maintenance Allergies Active Allergy Reactions Criticality Noted Date Comments Naproxen 05/15/2000 "heart races" documented as of this encounter (statuses as of 12/14/2023) Medications Medication Sig Dispensed Refills Start Date End Date Status LANCETS MISCIndications:DM type 2, goal A1c below 7 as directed 150 Box 3 11/25/2013 Active ASPIRIN EC 81 MG PO TBECIndications:mariann es in the evening Take by mouth. Indications: takes in the evening 30 Tab 11 11/25/2013 Active MECLIZINE HCL 25 MG PO TABSIndications:Esme tigo One pill by mouth up to 3 times a day as needed for dizziness 30 Tab 1 11/29/2014 Active NATURAL SUPPLEMENTIndicatio ns:Doterra Cellular Vitality Complex Take by mouth daily. 0 Active NATURAL SUPPLEMENTIndicatio ns:Micro plex food Nutrient Complex Vm Take by mouth daily. 0 Active NATURAL SUPPLEMENTIndicatio ns:Xeo Juarez Essential Oil [place] Complex Take by mouth daily. 0 Active B-12 1000 MCG Oral TabletIndications:B 12 deficiency 1 daily 0 04/04/2022 Active Cyclobenzaprine HCl 5 MG Oral Tablet (Flexeril)Indicatio ns:Spasm of muscle Take by mouth 1 Tablet as needed in the morning AND 1 Tablet as needed at noon AND 1 Tablet as needed in the evening for Muscle spasms. Do all this for up to 3 doses. 3 Tablet 0 07/16/2022 Active Additional Information Patient not taking.Reported on 05/14/2023 metFORMIN HCl ER 500 MG Oral Tablet Extended Release 24 Hour (Glucophage XR)Indications:Type 2 diabetes mellitus with hemoglobin A1c goal of less than 8.0% (HCC) 2 tabs twice daily 360 Tablet 2 11/20/2023 Active Repaglinide 1 MG Oral Tablet (Prandin)Indication s:Type 2 diabetes mellitus with hemoglobin A1c goal of less than 8.0% (HCC) TAKE 1 TABLET 15 MINS PRIOR TO 2 LARGEST MEALS OF THE DAY 180 Tablet 0 11/20/2023 Active amLODIPine Besylate 5 MG Oral Tablet (Norvasc)Indication s:HTN, goal below 150/90 Take 1 Tablet by mouth in the morning. 90 Tablet 2 11/20/2023 Active Atorvastatin Calcium 40 MG Oral Tablet (Lipitor)Indication s:Mixed dyslipidemia Take 1 Tablet by mouth in the morning. 90 Tablet 2 11/20/2023 Active hydroCHLOROthiazide 25 MG Oral Tablet (Hydrodiuril)Indica tions:HTN, goal below 150/90 Take 1 Tablet by mouth in the morning. 90 Tablet 0 11/20/2023 Active Lisinopril 40 MG Oral TabletIndications:H TN, goal below 150/90 Take 1 Tablet by mouth in the morning. 90 Tablet 3 11/20/2023 Active OneTouch Ultra In Vitro Strip (Glucose Blood) Use up to 4 times a day E11.9 100 Strip 11 11/20/2023 Active documented as of this encounter (statuses as of 12/14/2023) Active Problems Problem Noted Date Diagnosed Date [...] as of this encounter (statuses as of 12/14/2023) Resolved Problems Problem Noted Date Diagnosed Date [...] as of this encounter (statuses as of 12/14/2023) Immunizations Name Administration Dates Next Due COVID-19 mRNA, LNP-s, No Pre serve, 2-Dose Series (Pfizer) 08/21/2021,02/08/2021,01/18/2021 Pneumococcal Conjugate Vacc, 13 Valent (Prevnar) [...] Passive Smoke Exposure: Current Smokeless Tobacco: Never Alcohol Use Standard Drinks/Week Comments No 0 [...] on file documented as of this encounter Miscellaneous Notes * Telephone Encounter - Angela Cheek LPN - 12/14/2023 8:22 AM EST Care Gaps Comprehensive Care Outreach Last Office/Telemedicine Visit: 11/20/2023 (in office), Visit date not found (telemedicine) Next Office Visit: 05/25/2024 Hemoglobin AIC Results: Lab Results Component Value Date/Time HEMOGLOBIN A1C - [facility] 7.9 (H) 11/17/2023 08:27 AM HEMOGLOBIN A1C - [facility] 8.1 (H) 05/18/2023 09:43 AM HEMOGLOBIN A1C - [facility] 8.0 (H) 09/22/2022 10:04 AM HEMOGLOBIN A1C - [facility] 7.2 (H) 09/26/2020 08:34 AM HEMOGLOBIN A1C - [facility] 7.3 (H) 04/30/2020 10:36 AM HEMOGLOBIN A1C - [facility] 7.3 (H) 06/14/2019 09:21 AM BP Readings from Last 1 Encounters: 11/20/23 106/76 Reviewed Health Maintenance below: Health Maintenance Topic Date Due COVID-19 Vaccine ( season) 2023 Diabetic Foot Exam 05/14/2024 Depression Screening 05/14/2024 HbA1c 05/17/2024 Lab already ordered Care Gap Outreach Action Taken: Outreach not indicated documented in this encounter Plan of Treatment Upcoming Encounters Date Type Department Care Team (Late st Contact Info) Description 05/17/2024 9:00 AM EDT Nurse Only Ancillary Department, [place] [facility] [address] [facility] [place] [address] [place] Nurse Annual [facility] [address] [facility] [place] [id number] 05/20/2024 9:00 AM EDT Laboratory Laboratory, [place] [address] [facility] [address] [place], Laboratory [address] [facility] [place] [id number] 05/25/2024 10:20 AM EDT Office [facility] [place] [address] [facility] [place] [address] Pop Swift MD [address] [place] [facility] [place] [address] Scheduled Procedures Name Priority Associated Diagnoses Date/Ti me COLONOSCOPY FLEXIBLE PROXIMAL DIAGNOSTIC Recall History of colon polyps Health Maintenance Due Date Last Done Comments COVID-19 Vaccine ( season) 2023 08/21/2021, 02/08/2021, [...] 09/25/2021, Additional history exists B-12 11/17/2024 11/17/2023, 02/2022, 11/01/2021, Additional history exists GFR 11/17/2024 11/17/2023, 09/19, 09/26/2021, Additional history exists DTaP,Tdap,and Td Vaccines (2 - Td or Tdap) 11/29/2024 11/29/2014, 12/01/2005, 03/20/1994 Lipid Panel 11/17/2028 11/17/2023, 09/19, 09/26/2021, Additional history exists DXA Scan 02/18/2029 02/18/2022, 0403/2015, 10/11/2009, Additional history exists Pneumococcal Vaccine: 65+ Years Completed 12/12/2016, 11/26/2015, 04/14/2007, Additional history exists Zoster Vaccines Completed 11/24/2019, 08/16/2019 Influenza Vaccine (FLU shot) Completed 11/2022, 07/26/2022, 07/06/2021, Additional history exists GARDASIL-HPV IMMUNIZATION SERIES Aged Out No longer eligible based on patient's age to complete this topic Hepatitis B Aged Out No longer eligi ble based on patient's age to complete this topic MENINGOCOCCAL (MENACTRA/MENVEO) Aged Out No longer eligible based on patient's age to complete this topic documented as of this encounter Medical Devices Not on filedocumented as of this encounter Care Teams Streaming Media Specialist Relationship Specialty Start Date End Date Pop Swift MD [address] [place] [address] PCP - General Family Medicine 12/15/18 documented as of this encounter
--- OUTSIDE RECORDS SUMMARY | 2024-02-03 20:00 | External Medical Summary | Summary of Care ---
Author Name Unknown Organization [facility] Address [address] [facility] [place] [address] Phone [phone] Care Team Providers Care Crop Ranch Hand Name Role Phone Pop Swift MD Primary Care Provider [phone] Reason for Visit * Reason Onset Date Comments medication change 11/20/2023 Encounter Details Date Type Department Care Team (Late st Contact Info) Description [facility] [address] [facility] [place] [address] Pop Swift MD [address] [place] [address] medication change Allergies Active Allergy Reactions Criticality Noted Date [...] Active NATURAL SUPPLEMENTIndicati ons:Xeo Juarez Essential Oil [place] Complex Take by mouth daily. 0 Active B-12 1000 MCG Oral TabletIndications: B12 deficiency 1 daily 0 04/04/2022 Active Cyclobenzaprine HCl 5 MG Oral Tablet (Flexeril)Indicati ons:Spasm of muscle Take by mouth 1 [...] day E11.9 100 Strip 11 11/20/2023 Active OneTouch Verio In Vitro Strip (Glucose Blood)Indications: Type 2 diabetes mellitus with hemoglobin A1c goal of less than 8.0% (HCC) Use up to 4 times a day E11.9 100 Strip 11 11/20/2023 4 Discontinue d(Patient preference/ discontinua tion) documented as of this encounter (statuses as [...] mRNA, LNP-s, No Pre serve, 2-Dose Series (Klinq) 08/21/2021,02/08/2021,01/18/2021 Pneumococcal Conjugate Vacc, 13 Valent (Prevnar) [...] encounter Miscellaneous Notes * Telephone Encounter - Joyce Yu RPh - 11/20/2023 4:54 PM EST New rx sent for OneTouch Ultra as requested by patient. Thanks, Joyce Yu, PharmD Clinical Pharmacist [facility] ([facility] (formerly Telepharm[facility]) [phone] 11/20/2023 4:54 PM * Telephone Encounter - Brigida Bradshaw CPhT - 11/20/2023 2:21 PM EST Patient calling to have OneTouch Verio In Vitro Strip (Glucose Blood) changed to one touch ultra Thank you, Brigida Bradshaw Fashion Photographer II [facility] ([facility]) (formerly [facility]) 11/20/2023 2:21 PM documented in this encounter Plan of Treatment Upcoming Encounters Date Type Department Care Team (Late st Contact Info) Description 05/17/2024 9:00 AM EDT Nurse Only Ancillary Department, [place] [address] [facility] [phone] [place], [facility] [address] [facility] [place] [address] 05/20/2024 9:00 AM EDT Laboratory Laboratory, [place] [facility] [address] [place], Laboratory [address] [facility] [place] [phone] 05/25/2024 10:20 AM EDT Office Visit [facility] [place] [address] [facility] [address] Pop Swift MD [address] [facility] [place] [phone] Scheduled Procedures Name Priority Associated Diagnoses Date/Ti me COLONOSCOPY FLEXIBLE PROXIMAL DIAGNOSTIC Recall History of colon polyps Health Maintenance Due Date Last Done Comments Hepatitis B (1 of 3 - Risk 3-dose series) 2010 COVID-19 Vaccine ( season) 2023 08/21/2021, 02/08/2021, 01/18/2021 Depression Screening 05/14/2024 05/14/2023 Diabetic Foot Exam 05/14/2024 05/14/2023, 0 04/01/2021, 05/08/2020, Additional history exists HbA1c 05/17/2024 11/17/2023, 04/20, 09/22/2022, Additional history exists Albumin/Creatinine Ratio 05/18/2024 [...] filedocumented as of this encounter Care Teams Crop Ranch Hand Relationship Specialty Start Date End Date Pop Swift MD [address] [place] [address] PCP - General Family Medicine 12/15/18 documented as of this encounter
--- OUTSIDE RECORDS SUMMARY | 2024-02-03 20:00 | External Medical Summary | Summary of Care ---
Author Name Unknown Organization [facility] Address [address] [facility] [place] [address] Phone [phone] Care Team Providers Care Nut Roaster Name Role Phone Pop Swift MD Primary Care Provider [phone] Encounter Details Date Type Department Care Team (Late st Contact Info) Description 11/21/2023 Orders Only PATIENT PORTAL DO NOT DELETE THIS DEPT USED BY ISA BARROS [id number] Allergies Active Allergy Reactions Criticality Noted Date Comments Naproxen 05/15/2000 "heart races" documented as of this encounter (statuses as of 11/21/2023) Medications Medication Sig Dispensed Refills Start Date [...] Active NATURAL SUPPLEMENTIndicatio ns:Xeo Juarez Essential Oil [place] Complex Take by mouth daily. 0 Active [...] as of this encounter (statuses as of 11/21/2023) Active Problems Problem Noted Date Diagnosed Date [...] as of this encounter (statuses as of 11/21/2023) Resolved Problems Problem Noted Date Diagnosed Date [...] as of this encounter (statuses as of 11/21/2023) Immunizations Name Administration Dates Next Due COVID-19 [...] on file documented as of this encounter Plan of Treatment Upcoming Encounters Date Type Department Care Team (Late st Contact Info) Description 05/17/2024 9:00 AM EDT Nurse Only Ancillary Department, [place] [address] [place] [facility] [place] [address] [place], Nurse Annual Wellness [address] [place] [address] 05/20/2024 9:00 AM EDT Laboratory Laboratory, [place] [address] [place] [phone] [facility] [address], [place] [phone] 05/25/2024 10:20 AM EDT Office Visit Family Practice, [place] [address] [place] [facility] [place] [address] Pop Swift MD [address] [place] [address] Scheduled Procedures Name Priority Associated Diagnoses Date/Ti [...] filedocumented as of this encounter Care Teams Nut Roaster Relationship Specialty Start Date End Date Pop Swift MD [address] [place] [address] PCP - General Family Medicine 12/15/18 documented as of this encounter
--- OUTSIDE RECORDS SUMMARY | 2024-02-03 20:00 | External Medical Summary | Summary of Care ---
Author Name Unknown Organization [facility] Address [address] [facility] [place] [address] Phone [phone] Care Team Providers Care Bark Tanner Name Role Phone Pop Swift MD Primary Care Provider [phone] Reason for Visit * Reason Comments Outpatient Testing Encounter Details Date Type Department Care Team (Late st Contact Info) Description 11/17/2023 8:30 AM EST Laboratory Laboratory, [place] [address] [place] [address] [place], Laboratory [address], [place] [phone] Type 2 diabetes mellitus with hemoglobin A1c goal of less than 8.0% ([facility]); HTN, goal below 140/90; Dyslipidemia, goal LDL below 100; B12 deficiency Allergies Active Allergy Reactions Criticality Noted Date Comments Naproxen 05/15/2000 "heart races" documented as of this encounter (statuses as of 11/17/2023) Medications Medication Sig Dispensed Refills Start Date [...] Active NATURAL SUPPLEMENTIndicatio ns:Xeo Juarez Essential Oil [place] Complex Take by mouth daily. 0 Active B-12 1000 MCG Oral TabletIndications:B 12 deficiency 1 daily 0 04/04/2022 Active OneTouch Ultra Blue In Vitro Strip (Glucose Blood) Use twice daily 200 Strip 2 04/04/2022 Active Cyclobenzaprine HCl 5 MG Oral Tablet (Flexeril)Indicatio ns:Spasm of muscle Take by mouth 1 Tablet as needed in the morning AND 1 Tablet as needed at noon AND 1 Tablet as needed in the evening for Muscle spasms. Do all this for up to 3 doses. 3 Tablet 0 07/16/2022 Active Additional Information Patient not taking.Reported on 05/14/2023 Blood Glucose Test In Vitro StripIndications:Ty pe 2 diabetes mellitus with hemoglobin A1c goal of less than 8.0% (HCC) Test twice daily Dx: E11.9 180 Strip 3 12/03/2022 Active Lisinopril 40 MG Oral TabletIndications:H TN, goal below 150/90 Take 1 Tablet by mouth in the morning. 90 Tablet 3 03/30/2023 Active metFORMIN HCl ER 500 MG Oral Tablet Extended Release 24 Hour (Glucophage XR) 2 tabs twice daily 360 Tablet 2 04/25/2023 Active amLODIPine Besylate 5 MG Oral Tablet (Norvasc) Take 1 Tablet by mouth in the morning. 90 Tablet 2 04/25/2023 Active Atorvastatin Calcium 40 MG Oral Tablet (Lipitor)Indication s:Mixed dyslipidemia Take 1 Tablet by mouth in the morning. 90 Tablet 2 04/25/2023 Active Repaglinide 1 MG Oral Tablet (Prandin)Indication s:Type 2 diabetes mellitus with hemoglobin A1c goal of less than 8.0% (HCC) TAKE 1 TABLET 15 MINS PRIOR TO 2 LARGEST MEALS OF THE DAY 180 Tablet 0 09/24/2023 Active hydroCHLOROthiazide 25 MG Oral Tablet (Hydrodiuril)Indica tions:HTN, goal below 150/90 Take 1 Tablet by mouth in the morning. 90 Tablet 0 09/24/2023 Active documented as of this encounter (statuses as of 11/17/2023) Active Problems Problem Noted Date Diagnosed Date [...] as of this encounter (statuses as of 11/17/2023) Resolved Problems Problem Noted Date Diagnosed Date [...] OF INTRACTABLE EPILEPSY 06/14/20 18 Mixed dyslipidemia Overview: Per Lipid Taxonomy. documented as of this encounter (statuses as of 11/17/2023) Immunizations Name Administration Dates Next Due COVID-19 [...] Description 11/20/2023 9:40 AM EST Office Visit Family [facility], [place] [address] [place] [facility] [place] [address] Pop Swift MD [address], [place] [phone] 05/17/2024 9:00 AM EDT Nurse Only Ancillary Department, [place] [address] [place] [address] [place], Nurse Annual Wellness [address] [place] [address] Pending Results Name Type Priority Associated Diagnoses Date /Time COMPREHENSIVE METABOLIC PANEL Lab Routine Type 2 diabetes mellitus with hemoglobin A1c goal of less than 8.0% ([facility]) HTN, goal below 140/90 11/17/2023 8:27 AM EST LIPID PANEL WITH DIRECT LDL IF TG IS HIGH Lab Routine Dyslipidemia, goal LDL below 100 11/17/2023 8:27 AM EST HEMOGLOBIN A1C Lab Routine Type 2 diabetes mellitus with hemoglobin A1c goal of less than 8.0% (HCC) 11/17/2023 8:27 AM EST VITAMIN B12 Lab Routine B12 deficiency 11/17/2023 8:27 AM EST Scheduled Procedures Name Priority Associated Diagnoses Date/Ti me COLONOSCOPY FLEXIBLE PROXIMAL DIAGNOSTIC Recall History of colon polyps Health Maintenance Due Date Last Done Comments Hepatitis B (1 of 3 - Risk 3-dose series) 2010 COVID-19 Vaccine ( season) 2023 08/21/2021, 02/08/2021, 01/18/2021 B-12 09/22/2023 09/22/2022, 10/19, 09/26/2021, Additional history exists GFR 10/07/2023 10/07/2022, 06/2021, 09/26/2020, Additional history exists HbA1c 11/18/2023 05/18/2023, 02/2022, 03/28/2022, Additional history exists Depression Screening 05/14/2024 05/14/2023 Diabetic Foot Exam 05/14/2024 05/14/2023, 0 04/01/2021, 05/08/2020, Additional history exists Albumin/Creatinine Ratio 05/18/2024 023, 03/28/2022, 06/14/2019, Additional history exists COLONOSCOPY-EVERY 5 YRS AGES 18-100 09/06/2024 09/06/2019, 09/06/2019, 07/27/2009 Diabetic Eye Exam 09/29/2024 09/29/2023, , 09/24/2021, Additional history exists Mammogram 10/06/2024 10/06/2023, 09/18, 09/25/2021, Additional history exists DTaP,Tdap,and Td Vaccines (2 - Td or Tdap) 11/29/2024 11/29/2014, 12/01/2005, 03/20/1994 Lipid Panel 10/07/2027 10/07/2022, 06/2021, 09/26/2020, Additional history exists DXA Scan 02/18/2029 02/18/2022, [...] A1c goal of less than 8.0% (HCC) HTN, goal below 140/90 Unspecified essential hypertension Dyslipidemia, goal LDL below 100 Other and unspecified hyperlipidemia B12 deficiency Other B-complex deficiencies documented in this encounter Care Teams Bark Tanner Relationship Specialty Start Date End Date Pop Swift MD [address] [place] [address] PCP - General Family Medicine 12/15/18 documented as of this encounter
--- OUTSIDE RECORDS SUMMARY | 2024-02-03 20:00 | External Medical Summary ---
Author Name Unknown Address Unknown Organization [id number]:[facility] [place] [address] [facility] [place] [address] Laboratory Report Ordering Provider Test Date Status WILLI LYLES 11/17/2023 08:27:22 Final Observation Date Value Abnormality Reference (Units ) Status BUN 11/17/2023 08:27:22 10 6-20 (mg/dL) Final Creatinine 11/17/2023 08:27:22 0.6 0.5-1.0 (mg/dL) Final Glomerular filtration rate/1.73 sq M.predicted [Volume Rate/Area] in Serum, Plasma or Blood by Creatinine-based formula (CKD-EPI) 11/17/2023 08:27:22 >90 >=60 (mL/min) Final eGFR is calculated based on the CKD-EPI 2020 equation SODIUM 11/17/2023 08:27:22 140 135-146 (m mol/L) Final Potassium 11/17/2023 08:27:22 4.2 3.5-5.1 (m mol/L) Final Cl 11/17/2023 08:27:22 100 98-107 (mm ol/L) Final CO2 11/17/2023 08:27:22 27 22-32 (mmo l/L) Final Anion gap 11/17/2023 08:27:22 13 7-15 (mmol /L) Final Glucose 11/17/2023 08:27:22 174 Above high normal 70 -120 (mg/dL) Final Albumin 11/17/2023 08:27:22 4.5 3.8-5.0 (g /dL) Final AST (Aspartate aminotransferase) 11/17/2023 08:27:22 19 10-35 (U/L) Fin al Alk Phos 11/17/2023 08:27:22 75 35-130 (U/ L) Final Bilirubin, Total 11/17/2023 08:27:22 0.6 <=1 .2 (mg/dL) Final Calcium 11/17/2023 08:27:22 10.1 8.4-10.2 ( mg/dL) Final Protein 11/17/2023 08:27:22 6.3 6.0-8.3 (g /dL) Final ALT (Alanine aminotransferase) 11/17/2023 08:27:22 20 10-35 (U/L) Kj sesay Performing Location [facility] [address] [facility] [address]
--- OUTSIDE RECORDS SUMMARY | 2024-02-03 20:00 | External Medical Summary | Summary of Care ---
Author Name Unknown Organization [facility] Address [address] [facility] [address] Phone [phone] Care Team Providers Care Combination Saw Operator Name Role Phone Pop Swift MD Primary Care Provider [phone] Reason for Visit * Reason Comments eRx-Medication Refill Encounter Details Date Type Department Care Team (Late st Contact Info) Description 01/14/2024 Refill [facility] [address] [place] [address] Pop Swift MD [address] [place] [address] Mixed dyslipidemia Allergies Active Allergy Reactions Criticality Noted Date Comments Naproxen 05/15/2000 "heart races" documented as of this encounter (statuses as of 01/15/2024) Medications Medication Sig Dispensed Refills Start Date [...] Active NATURAL SUPPLEMENTIndicatio ns:Xeo Juarez Essential Oil [place] Complex Take by mouth daily. 0 Active [...] as of this encounter (statuses as of 01/15/2024) Active Problems Problem Noted Date Diagnosed Date [...] as of this encounter (statuses as of 01/15/2024) Resolved Problems Problem Noted Date Diagnosed Date [...] PSY; WITHOUT MENTION OF INTRACTABLE EPILEPSY 06/14/20 Mixed dyslipidemia 9 Overview: Per Lipid Taxonomy. documented as of this encounter (statuses as of 01/15/2024) Immunizations Name Administration Dates Next Due COVID-19 [...] encounter Miscellaneous Notes * Telephone Encounter - Meghan Hogue [facility] - 01/15/2024 11:03 AM EDT Refused Prescriptions: Disp Refills Atorvastatin Calcium 40 MG Oral Tablet (Li*90 Tab*0 Sig: TAKE 1TABLET BY MOUTH EVERY MORNINGRefused By: MEGHAN HOGUE for Refusal: Too soon--------- documented in this encounter Plan of Treatment Upcoming Encounters Date Type Department Care Team (Late st Contact Info) Description 05/17/2024 9:00 AM EDT Nurse Only Ancillary Department, [place] [address], [place] [phone] [place], Nurse Annual Wellness [address], [place] [phone] 05/20/2024 9:00 AM EDT Laboratory Laboratory, [place] [address] [place] [phone] [place] [facility] [address], [place] [phone] 05/25/2024 10:20 AM EDT Office Visit Family [facility], [place] [address] [place] [facility] [place] [phone] Pop Swift MD [address], [place] [phone] Scheduled Procedures Name Priority Associated Diagnoses Date/Ti [...] 09/25/2021, Additional history exists B-12 11/17/2024 11/17/2023, 1202/2022, 11/01/2021, Additional history exists GFR 11/17/2024 11/17/2023, [...] as of this encounter Visit Diagnoses Diagnosis Mixed dyslipidemia Mixed hyperlipidemia documented in this encounter Care Teams Combination Saw Operator Relationship Specialty Start Date End Date Pop Swift MD [address] [place] [address] PCP - General Family Medicine 12/15/18 documented as of this encounter
[2024-02-03] MEDS: MAGNESIUM SULFATE / D5W 1 GM/100 ML BAG IV SCH (20:39)
[2024-02-03] MEDS: amLODIPine BESYLATE 5 MG TAB PO SCH (20:40)
[2024-02-03] MEDS: ATORVASTATIN 40 MG TAB PO SCH (20:40)
[2024-02-03] MEDS: hydroCHLOROthiazide 25 MG TAB PO SCH (20:40)
[2024-02-04] MEDS ORDERED: Nursing to Pharmacy Communication SCH (07:00)
[2024-02-04 07:34] LABS: Hematocrit (blood only) 35.9 % (37.0-47.0); Hemoglobin 12.7 g/dl (12.0-16.0); Mean Corpuscular Hemoglobin 31.2 pg (25.0-34.0); Mean Corpuscular Hgb Conc 35.4 g/dL (32.0-36.0); Mean Corpuscular Volume 88.2 fL (80.0-100.0); Mean Platelet Volume 9.8 fL (9.4-12.4); Platelet Count 245 K/uL (130-400); RDW Coefficient of Variation 12.5 % (11.5-14.5); RDW Standard Deviation 40.1 fL (36.4-46.3); Red Blood Count 4.07 M/uL (4.20-5.40); White Blood Count 9.92 K/ul (4.8-10.8)
[2024-02-04 07:55] LABS: Estimated Average Glucose 171 mg/dl; Hemoglobin A1C 7.6 % (4.5-5.6)
[2024-02-04] MEDS: CYANOCOBALAMIN (B-12) 500 MCG TABLET PO SCH (07:56)
[2024-02-04] MEDS: hydroCHLOROthiazide 25 MG TAB PO SCH (07:56)
[2024-02-04 07:59] LABS: BUN Creatinine Ratio 16.4 (10-20); Calcium 9.3 mg/dl (8.6-10.3); Creatinine Clr Calc Pharmacy 87.5 ml/min; Est GFR (African American) 107.8 ml/min; Est GFR (Non-African American) 93.1 ml/min; Potassium 3.7 mmol/L (3.5-5.1)
[2024-02-04] MEDS ORDERED: lisinopril 40 MG TAB PO SCH (09:00)
--- NOTE | 2024-02-04 09:15 | Electrocardiogram Report ---
Test Reason : Blood Pressure : / mmHG Vent. Rate : 078 BPM Atrial Rate : 078 BPM P-R Int : 122 ms QRS Dur : 086 ms QT Int : 400 ms P-R-T Axes : 035 -14 008 degrees QTc Int : 456 ms Normal sinus rhythm Normal ECG When compared with ECG of 03-FEB-2024 11:11, No significant change was found Confirmed by Miguel Sherwood ([id number]) on 02/04/2024 9:15:15 AM Referred By: REFERRED SELF Confirmed By:Navneet Sherwood
--- NOTE | 2024-02-04 11:20 | Orthopedic Progress Note ---
Date of Service February 04, 2024 Assessment & Plan (1) Fracture, humerus: Plan: The patient was educated regarding today's findings. Continue using the sling for support and immobilization. Continue with ice and elevation of the shoulder. She is hoping to avoid surgery, but understands that it may be necessary to provide the most optimal outcome. Continue with oral pain medication as needed. In regard to the knee, she may continue with ice, elevation, and compression. She was reassured that there is no evidence for fracture. She will be reevaluated tomorrow. Call with any other concerns. (2) Contusion of right knee: Admission and Anticipated Discharge Date Admission Date: February 03, 2024 Subjective This 73-year-old female was reevaluated in her room today. She is sitting in the chair. She states the shoulder is bothersome, and she is having discomfort in her right knee as well. X-rays have been obtained of the knee, which were indicative of tricompartmental arthritis. No evidence of fracture. The patient has no additional complaints today. Physical Exam Physical Exam: General: Well-developed, well-nourished, elderly female, in no acute distress. Sitting in the chair. Alert and oriented. Skin: Warm and dry with good turgor. No rashes. She has extensive ecchymosis and edema present in the anterior left shoulder. No open wounds. Musculoskeletal: The patient has continued discomfort with palpation over the left shoulder. She has intact passive and active motion of the elbow, wrist, and digits. Motor function of the fingers is intact and unremarkable. She has discomfort with palpation around the anterior right knee. Stable collateral ligaments. No palpable defect in the patellar tendon or quadriceps tendon. She does have discomfort with palpation over the medial and lateral joint lines of the right knee, consistent with her osteoarthritis. She states she is able to bear weight on it, but she is limping. Neurologic: Gross sensation is intact across each of the dermatomes of the left arm by soft touch. Sensation is also intact across the right knee and leg. Results & Data Vital Signs (Past 12 Hours) Vital Signs Temp Pulse Pulse Resp BP Pulse Ox O2 Del Method 02/04/24 08:57 41 L 02/04/24 07:39 Room Air 02/04/24 07:11 36.7 C 75 14 108/69 91 Room Air 02/04/24 07:03 96 H 02/04/24 04:00 36.6 C 79 18 111/67 94 Room Air (1) Fracture, humerus Encounter type: initial encounter Fracture alignment: displaced Fracture type: closed Humerus Location: surgical neck Laterality: left
--- NOTE | 2024-02-04 16:04 | Hospitalist Progress Note ---
Date of Service February 04, 2024 Assessment & Plan (1) Fall: (2) Fracture, humerus: Plan: Patient is 73 year old female with PMH DM II, HTN, dyslipidemia, history of seizure disorder last seizure in 1962, GERD presented to ER complaint of fall with subsequent left shoulder pain. Pt reports ongoing stressor at home and as a result poor appetite lately. She didn't feel palpitation/dizziness/chest pain/warmth/nausea/vomiting surrounding fall. She felt weak and was aware she is about to fall and fell on her left side (tried to grab table nearby but couldn't). In ER vitals stable, glucose 300, other electrolytes unremarkable. Troponin negative x 2. CT Head: no acute intracranial abnormality CT C-spine: no acute fracture CXR: no acute infiltrate Left shoulder xray: Comminuted and displaced left humeral head/neck fracture Echo with EF of greater than 70%, LV wall motion normal. Pain management, aspirin on hold in anticipation for surgical procedure Ortho evaluating, will follow further recs, possibility of surgery, currently being managed conservatively Monitor H&H, slightly dropped today. Vitamin D level low, start vitamin D supplementation 02/03. Recommend outpatient DEXA scan. (3) Hyperglycemia: (4) Diabetes mellitus, type II: Plan: Random glucose 300 in ER A1c: 7.9 on 11/17/23; a1c 7.6 this admission Hold home metformin, repaglinide Novolog sliding scale per protocol (5) Hypertension: Plan: Continue amlodipine, HCTZ, lisinopril with holding parameters (6) Hypercholesterolemia: Plan: Continue atorvastatin (7) History of seizure disorder: Plan: No history seizure since 1962 DVT Prophylaxis SCDs Full Code as per discussion with pt Follows with Dr Swift for routine care Admission and Anticipated Discharge Date Admission Date: February 03, 2024 Subjective Patient was seen and examined at bedside. Patient was sitting up in bed, on room air, NAD, reports having discomfort in the right knee, left shoulder on sling. Patient reports no other ROS. Physical Exam Physical Exam: GENERAL APPEARANCE: AxOx4, generally well-appearing female, no acute distress. HEENT: NC, AT. MMM. EOMI, clear conjunctiva, oropharynx clear. NECK: Supple without lymphadenopathy. No stiffness or restricted ROM. HEART: Normal rate and regular rhythm, normal S1/S1, no m/r/g LUNGS: CTAB, moving air well. No crackles or wheezes are heard. ABDOMEN: Soft, nontender, nondistended with good bowel sounds heard. BACK: No CVAT, no obvious deformity. EXTREMITIES: Without cyanosis, clubbing or edema. LUE in sling. Bruise noted anteriorly in left shoulder. NEUROLOGICAL: Grossly nonfocal. Alert and oriented, moving all 4 extremities. CN not formally tested but appear grossly intact. Skin: Warm and dry without any rash. Results & Data Results & Data Vital Signs (Past 12 Hours) Vital Signs Temp Pulse Pulse Resp BP Pulse Ox Pulse Ox 02/04/24 15:40 95 02/04/24 15:31 37.0 C 83 18 154/81 H 95 02/04/24 14:59 84 02/04/24 11:53 36.5 C 79 16 129/82 97 02/04/24 08:57 41 L 02/04/24 07:39 02/04/24 07:11 36.7 C 75 14 108/69 91 02/04/24 07:03 96 H 02/04/24 04:00 36.6 C 79 18 111/67 94 O2 Del Method O2 Del Method 02/04/24 15:40 Room Air 02/04/24 15:31 Room Air 02/04/24 14:59 02/04/24 11:53 Room Air 02/04/24 08:57 02/04/24 07:39 Room Air 02/04/24 07:11 Room Air 02/04/24 07:03 02/04/24 04:00 Room Air (1) Fall Encounter type: initial encounter Qualified Code(s): W19.XXXA - Unspecified fall, initial encounter (2) Fracture, humerus Encounter type: initial encounter Fracture alignment: displaced Fracture type: closed Humerus Location: surgical neck Laterality: left
[2024-02-04] MEDS: CHOLECALCIFEROL 125 MCG (5,000 UNITS) TAB PO SCH (17:17)
[2024-02-05 07:23] LABS: Hematocrit (blood only) 33.5 % (37.0-47.0); Hemoglobin 11.9 g/dl (12.0-16.0); Mean Corpuscular Hemoglobin 31.3 pg (25.0-34.0); Mean Corpuscular Hgb Conc 35.5 g/dL (32.0-36.0); Mean Corpuscular Volume 88.2 fL (80.0-100.0); Platelet Count 236 K/uL (130-400); RDW Coefficient of Variation 12.2 % (11.5-14.5); RDW Standard Deviation 39.5 fL (36.4-46.3); White Blood Count 9.73 K/ul (4.8-10.8)
[2024-02-05 07:34] LABS: BUN Creatinine Ratio 21.2 (10-20); Calcium 9.2 mg/dl (8.6-10.3); Creatinine Clr Calc Pharmacy 92.7 ml/min; Est GFR (African American) 109.9 ml/min; Est GFR (Non-African American) 94.8 ml/min; Potassium 3.4 mmol/L (3.5-5.1)
[2024-02-05] MEDS: POLYETHYLENE (MIRALAX) 17 GM PACK PO PRN (09:14)
[2024-02-05] MEDS: POTASSIUM CHLORIDE CRTAB 20 MEQ TABCR PO STA (09:14)
[2024-02-05] MEDS: DICLOFENAC SOD 1% GEL 100 GM TUBE EXT SCH (13:08)
[2024-02-05] MEDS: methylPREDNISolone acetate 40 MG/ML VIAL INJ ONE (15:45)
[2024-02-05] MEDS: LIDOCAINE 1% LOCAL 20 ML VIAL INJ ONE (15:45)
--- NOTE | 2024-02-05 16:20 | Hospitalist Progress Note ---
Date of Service February 05, 2024 Assessment & Plan (1) Fall: (2) Fracture, humerus: Plan: Patient is 73 year old female with PMH DM II, HTN, dyslipidemia, history of seizure disorder last seizure in 1962, GERD presented to ER complaint of fall with subsequent left shoulder pain. Pt reports ongoing stressor at home and as a result poor appetite lately. She didn't feel palpitation/dizziness/chest pain/warmth/nausea/vomiting surrounding fall. She felt weak and was aware she is about to fall and fell on her left side (tried to grab table nearby but couldn't). In ER vitals stable, glucose 300, other electrolytes unremarkable. Troponin negative x 2. CT Head: no acute intracranial abnormality CT C-spine: no acute fracture CXR: no acute infiltrate Left shoulder xray: Comminuted and displaced left humeral head/neck fracture Echo with EF of greater than 70%, LV wall motion normal. Pain management, aspirin on hold in anticipation for surgical procedure Ortho evaluating, will follow further recs, possibility of surgery, currently being managed conservatively Monitor H&H, slightly dropped again today. Vitamin D level low, started vitamin D supplementation 02/03. Recommend outpatient DEXA scan. Pt was made aware. Right knee osteoarthritis: severe, pt reports problem moving around. c/w pain meds. local voltaren gel. Ortho following, await recs. (3) Hyperglycemia: (4) Diabetes mellitus, type II: Plan: Random glucose 300 in ER A1c: 7.9 on 11/17/23; a1c 7.6 this admission Hold home metformin, repaglinide Novolog sliding scale per protocol (5) Hypertension: Plan: Continue amlodipine, HCTZ, lisinopril with holding parameters (6) Hypercholesterolemia: Plan: Continue atorvastatin (7) History of seizure disorder: Plan: No history seizure since 1962 DVT Prophylaxis SCDs Full Code as per discussion with pt Follows with Dr Swift for routine care PT/OT when able. Admission and Anticipated Discharge Date Admission Date: February 03, 2024 Subjective Patient was seen and examined at bedside. Patient was sitting up in bed, on room air, NAD, reports having discomfort in the right knee, left shoulder on sling. Reports impaired ambulation due to left knee pain, will order voltaren gel. c/w cold compression Patient reports no other ROS. Physical Exam Physical Exam: GENERAL APPEARANCE: AxOx4, generally well-appearing female, no acute distress. HEENT: NC, AT. MMM. EOMI, clear conjunctiva, oropharynx clear. NECK: Supple without lymphadenopathy. No stiffness or restricted ROM. HEART: Normal rate and regular rhythm, normal S1/S1, no m/r/g LUNGS: CTAB, moving air well. No crackles or wheezes are heard. ABDOMEN: Soft, nontender, nondistended with good bowel sounds heard. BACK: No CVAT, no obvious deformity. EXTREMITIES: Without cyanosis, clubbing or edema. LUE in sling. Bruise noted anteriorly in left shoulder. NEUROLOGICAL: Grossly nonfocal. Alert and oriented, moving all 4 extremities. CN not formally tested but appear grossly intact. Skin: Warm and dry without any rash. Results & Data Results & Data Vital Signs (Past 12 Hours) Vital Signs Temp Pulse Pulse Resp BP Pulse Ox Pulse Ox 02/05/24 15:53 36.6 C 91 H 16 163/92 H 95 02/05/24 15:35 94 H 02/05/24 15:00 95 02/05/24 11:25 36.7 C 90 16 131/80 96 02/05/24 07:36 36.7 C 84 16 150/79 H 95 02/05/24 07:22 77 02/05/24 04:30 36.6 C 83 18 141/88 H 96 O2 Del Method O2 Del Method 02/05/24 15:53 Room Air 02/05/24 15:35 02/05/24 15:00 Room Air 02/05/24 11:25 Room Air 02/05/24 07:36 Room Air 02/05/24 07:22 02/05/24 04:30 Room Air (1) Fall Encounter type: initial encounter Qualified Code(s): W19.XXXA - Unspecified fall, initial encounter (2) Fracture, humerus Encounter type: initial encounter Fracture alignment: displaced Fracture type: closed Humerus Location: surgical neck Laterality: left
--- NOTE | 2024-02-05 16:25 | Orthopedic Progress Note ---
Date of Service February 05, 2024 Assessment & Plan (1) Contusion of right knee: Plan: She had x-rays of her right knee which shows severe [id number] tricompartmental osteoarthritis with very large osteophytes. No evidence of fracture. She does have a moderate to large effusion today and offered her cortisone injection and aspiration. She was agreeable to this. Post aspiration injection she had some mild relief of pain but it was still "painful". She con tinued to need her cane to assist with ambulation. Instructed for her to continue use of ice. I did apply an Felix bandage to the knee itself for compression. She can advance activities as tolerated and weight-bear as tolerated. Hopefully over the next few days she will get improved relief of the right knee. Procedure: Patient was placed supine position in bed. Timeout and verbal consent was obtained for the right knee aspiration and injection. Her nurse was present for today's procedure and confirmed site. Risk and benefits of the aspiration injection were discussed. I then marked the area of the injection site, cleansed it with 2 iodine swabs and then alcohol swabs. I then aspirated 35 cc of blood from her right knee. She tolerated the aspiration well. I then injected 40 mg of Depo-Medrol with 3 cc of 1% lidocaine plain. Pressure with a 4 x 4 gauze was applied to the right knee along with a 4 inch Felix bandage. Instructed to keep the Felix on for the next 24 hours. (2) Fracture, humerus: Plan: Displaced left proximal humerus fracture. Will plan to get repeat series of x- rays of her left arm with her arm position across her abdomen and hopefully better position with gravity. A Grashey AP and transscapular lateral x-ray was ordered. This will be performed later today. She can continue use of ice. No use of her left arm. Continue shoulder immobilizer at all times. She can do gentle range of motion of her elbow wrist forearm and fingers as tolerated. Encouraged elevation if able of her left hand. No plans for surgical intervention at this time. We will follow closely while in-house or as an outpatient to determine if future open duction internal fixation is necessary. I explained to her that this can take 10 to 21 days to sort of decide and see if she gets any improvement in alignment with gravity over time. She is agreeable to this. She is looking forward to going home from the hospital. She does currently live alone but will have friends and family coming in to visit her frequently. Follow-up as scheduled with Dr. Padilla. Admission and Anticipated Discharge Date Admission Date: February 03, 2024 Subjective Patient is sitting up in bed. She is doing well. Complaining of right knee pain. She states that is gotten worse last 2 days. It really did not bother her prior to her fall. She thinks she might of fell on it. She has known osteoarthritis and previous meniscal injury. She states has been stiff prior to surgery but now it is more painful with weightbearing. She is using a cane in her right hand which she does not normally need to do. She has been applying ice. She was prescribed Voltaren gel which really has not made a significant difference with relief of her pain. We discussed doing an aspiration and cortisone injection which she was agreeable to and asked me to perform it today rather than as an outpatient next week. Left shoulder also is causing pain with movement. She has no pain at rest. Denies any numbness or tingling. She states she has been adjusting the sling to try to keep her arm across her abdomen but it does "slide". Physical Exam Musculoskeletal: Exam of her left upper extremity: She has some mild edema into her hand. She has full range of motion of her fingers, wrist forearm and elbow. Ecchymosis across the top of her shoulder. Her sling was readjusted to position her arm across her abdomen. Exam of her right knee: Moderate effusion to the right knee. No warmth, erythema or ecchymosis noted. She is able to independently straight leg raise. Range of motion is about 15 degrees of extension to 85 degrees of flexion. Calf is supple and nontender. Mild ankle edema. No foot edema. Distal pulses are 1+. Strength is 5/5. Pain with palpation diffusely around her knee. No prepatellar effusion. Nontender over the patellar tendon. Tenderness with palpation of the suprapatellar region of the knee. Results & Data Vital Signs (Past 12 Hours) Vital Signs Temp Pulse Pulse Resp BP Pulse Ox Pulse Ox 02/05/24 15:53 36.6 C 91 H 16 163/92 H 95 02/05/24 15:35 94 H 02/05/24 15:00 95 02/05/24 11:25 36.7 C 90 16 131/80 96 02/05/24 07:36 36.7 C 84 16 150/79 H 95 02/05/24 07:22 77 02/05/24 04:30 36.6 C 83 18 141/88 H 96 O2 Del Method O2 Del Method 02/05/24 15:53 Room Air 02/05/24 15:35 02/05/24 15:00 Room Air 02/05/24 11:25 Room Air 02/05/24 07:36 Room Air 02/05/24 07:22 02/05/24 04:30 Room Air Diagnostic Findings Repeat x-rays of the left shoulder ordered, Grashey AP and transscapular lateral-currently pending (2) Fracture, humerus Encounter type: initial encounter Fracture alignment: displaced Fracture type: closed Humerus Location: surgical neck Laterality: left
--- NOTE | 2024-02-05 16:38 | XRay Report ---
XR shoulder LT min 2V routine HISTORY: 73 years-old Female Grashey AP and transcapular lateral; acute left shoulder pain COMPARISON: 02/02/2021 TECHNIQUE: 2 views of the left shoulder FINDINGS: Redemonstration of a comminuted acute fracture of the left humeral head and neck with numerous displa nikos fragments. There is medial displacement of the humeral shaft by at least one shaft length as well as overriding of the fragments. Overlying soft tissue edema is noted. No additional fracture is seen . Degenerative change is noted at the glenohumeral and acromioclavicular joints. The imaged left lung parenchyma appears clear. IMPRESSION: Unchanged alignment of the acute, comminuted, impacted and displaced proximal humeral fra cture. ACT 112: Negative or not required by law. The above report was generated using voice recognition software. It may contain grammatical, syntax o r spelling errors. Electronically signed by: Mann Hoskins M.D. 02/05/2024 4:37 PM
[2024-02-05] MEDS: amLODIPine BESYLATE 5 MG TAB PO ONE (21:28)
[2024-02-05] MEDS: NSS + 20MEQ KCL 20 MEQ/1,000 ML BAG IV ONE (21:29)
[2024-02-05] MEDS: LANTUS PER UNIT CHARGE SQ SCH (21:37)
[2024-02-06] MEDS: INSULIN ASPART PER UNIT CHARGE SC SCH (00:59)
[2024-02-06 06:48] LABS: BUN Creatinine Ratio 24.4 (10-20); Calcium 9.5 mg/dl (8.6-10.3); Creatinine Clr Calc Pharmacy 108.9 ml/min; Est GFR (African American) 115.2 ml/min; Est GFR (Non-African American) 99.4 ml/min; Potassium 3.9 mmol/L (3.5-5.1)
[2024-02-06 06:53] LABS: Hemoglobin 11.4 g/dl (12.0-16.0); Mean Corpuscular Hemoglobin 30.9 pg (25.0-34.0); Mean Corpuscular Hgb Conc 34.5 g/dL (32.0-36.0); Mean Corpuscular Volume 89.4 fL (80.0-100.0); Mean Platelet Volume 10.2 fL (9.4-12.4); Platelet Count 234 K/uL (130-400); RDW Coefficient of Variation 12.3 % (11.5-14.5); RDW Standard Deviation 39.8 fL (36.4-46.3); Red Blood Count 3.69 M/uL (4.20-5.40); White Blood Count 9.95 K/ul (4.8-10.8)
[2024-02-06] MEDS: oxyCODONE HCL IR 5 MG TAB (IMMEDIATE RELEASE) PO PRN (07:48)
[2024-02-06] MEDS: INSULIN ASPART PER UNIT CHARGE SC STA ×2 (13:36→14:38)
--- NOTE | 2024-02-06 16:25 | Hospitalist Progress Note ---
Date of Service February 06, 2024 Assessment & Plan (1) Fall: (2) Fracture, humerus: Plan: Patient is 73 year old female with PMH DM II, HTN, dyslipidemia, history of seizure disorder last seizure in 1962, GERD presented to ER complaint of fall with subsequent left shoulder pain. Pt reports ongoing stressor at home and as a result poor appetite lately. She didn't feel palpitation/dizziness/chest pain/warmth/nausea/vomiting surrounding fall. She felt weak and was aware she is about to fall and fell on her left side (tried to grab table nearby but couldn't). In ER vitals stable, glucose 300, other electrolytes unremarkable. Troponin negative x 2. CT Head: no acute intracranial abnormality CT C-spine: no acute fracture CXR: no acute infiltrate Left shoulder xray: Comminuted and displaced left humeral head/neck fracture Echo with EF of greater than 70%, LV wall motion normal. Pain management. Ortho evaluating, currently being managed conservatively, f/u as an OP. Monitor H&H, slightly dropped again today. Vitamin D level low, started vitamin D supplementation 02/03. Recommend outpatient DEXA scan. Pt was made aware. Right knee osteoarthritis: severe, pt reports problem moving around. c/w pain meds. local voltaren gel. Ortho following, await recs. s/p knee injection 02/04 by ortho. slight improvement per pt. (3) Hyperglycemia: (4) Diabetes mellitus, type II: Plan: Random glucose 300 in ER A1c: 7.9 on 11/17/23; a1c 7.6 this admission Hold home metformin, repaglinide Novolog sliding scale per protocol (5) Hypertension: Plan: Continue amlodipine, HCTZ, lisinopril with holding parameters (6) Hypercholesterolemia: Plan: Continue atorvastatin (7) History of seizure disorder: Plan: No history seizure since 1962 DVT Prophylaxis SCDs Full Code as per discussion with pt Follows with Dr Swift for routine care PT/OT, likely will need rehab. Admission and Anticipated Discharge Date Admission Date: February 03, 2024 Subjective Patient was seen and examined at bedside. Patient was sitting up in bed, on room air, NAD, reports slight improvement in the discomfort in the right knee, left shoulder on sling. Reports impaired ambul ation due to left knee pain, c.w voltaren gel. c/w cold compression Patient reports no other ROS. Physical Exam Physical Exam: GENERAL APPEARANCE: AxOx4, generally well-appearing female, no acute distress. HEENT: NC, AT. MMM. EOMI, clear conjunctiva, oropharynx clear. NECK: Supple without lymphadenopathy. No stiffness or restricted ROM. HEART: Normal rate and regular rhythm, normal S1/S1, no m/r/g LUNGS: CTAB, moving air well. No crackles or wheezes are heard. ABDOMEN: Soft, nontender, nondistended with good bowel sounds heard. BACK: No CVAT, no obvious deformity. EXTREMITIES: Without cyanosis, clubbing or edema. LUE in sling. Bruise noted anteriorly in left shoulder. NEUROLOGICAL: Grossly nonfocal. Alert and oriented, moving all 4 extremities. CN not formally tested but appear grossly intact. Skin: Warm and dry without any rash. Results & Data Results & Data Vital Signs (Past 12 Hours) Vital Signs Temp Pulse Pulse Resp BP Pulse Ox O2 Del Method 02/06/24 09:26 72 02/06/24 08:04 36.7 C 73 16 135/84 97 Room Air (1) Fall Encounter type: initial encounter Qualified Code(s): W19.XXXA - Unspecified fall, initial encounter (2) Fracture, humerus Encounter type: initial encounter Fracture alignment: displaced Fracture type: closed Humerus Location: surgical neck Laterality: left
[2024-02-06] MEDS: diphenhydrAMINE 50 MG/ML VIAL IV PRN (16:56)
[2024-02-07 08:03] LABS: BUN Creatinine Ratio 27.5 (10-20); Calcium 9.3 mg/dl (8.6-10.3); Creatinine Clr Calc Pharmacy 120.9 ml/min; Est GFR (African American) 119.8 ml/min; Est GFR (Non-African American) 103.3 ml/min; Magnesium 1.5 mg/dl (1.7-2.4); Potassium 3.8 mmol/L (3.5-5.1)
[2024-02-07] MEDS ORDERED: PHARMACY GLYCEMIC MGMT CONSULT PRN (08:11)
[2024-02-07] MEDS: MAGNESIUM SULFATE / D5W 1 GM/100 ML BAG IV SCH (08:41)
--- NOTE | 2024-02-07 08:51 | Pharmacy Report ---
Pharmacy Glycemic Short Note 2 - Date of Service February 07, 2024 - Glycemic Short BSG Results (Last 24 hours): 02/06/24 02/06/24 02/06/24 12:28 12:29 13:02 Glucose 402 H* POC Glucose 379 H* 371 H* 02/06/24 02/06/24 02/06/24 14:16 15:31 17:15 Glucose POC Glucose 335 H* 245 H 120 H 02/06/24 02/07/24 02/07/24 20:13 07:32 08:28 Glucose 252 H POC Glucose 209 H 251 H OUTPATIENT ANTIDIABETIC REGIMEN: * Metformin 1g PO BID * Prandin 1mg PO with breakfast and dinner * A1c 7.6% 02/04/24 ASSESSMENT: * 73 yo F, PMH DM II, HTN, dyslipidemia, history of seizure disorder last seizure in 1962, GERD presented to ER complaint of fall with subsequent left shoulder pain. Contusion of right knee and humerus fracture. No plan for surgery at this time. s/p knee cortisone injection and aspiration on 02/04. * Patient hyperglycemic and pharmacy consulted today, pt received 51 units of insulin yesterday, 10 units basal, fasting 252mg/dl today, will increase basal and tighten CF/CR at this time and titrate to goal blood sugar. PLAN FOR INPATIENT GLYCEMIC CONTROL: * Hold outpatient oral diabetes medications * Basal insulin * Lantus 20 units SQ AM, 10 units HS for BSG > 180mg/dl * Bolus insulin * NovoLog per scale ACHS or Q6hrs while NPO * Goal Range: Low 110 mg/dL - High 140 mg/dL * Correction Factor: 15 mg/dL/unit * Nutritional / Prandial insulin per carb ratio of 1 unit per 6 grams CHO consumed
[2024-02-07] MEDS: LANTUS PER UNIT CHARGE SC SCH (09:49)
--- NOTE | 2024-02-07 14:38 | Hospitalist Progress Note ---
Date of Service February 07, 2024 Assessment & Plan (1) Fall: (2) Fracture, humerus: Plan: Patient is 73 year old female with PMH DM II, HTN, dyslipidemia, history of seizure disorder last seizure in 1962, GERD presented to ER complaint of fall with subsequent left shoulder pain. Pt reports ongoing stressor at home and as a result poor appetite lately. She didn't feel palpitation/dizziness/chest pain/warmth/nausea/vomiting surrounding fall. She felt weak and was aware she is about to fall and fell on her left side (tried to grab table nearby but couldn't). In ER vitals stable, glucose 300, other electrolytes unremarkable. Troponin negative x 2. CT Head: no acute intracranial abnormality CT C-spine: no acute fracture CXR: no acute infiltrate Left shoulder xray: Comminuted and displaced left humeral head/neck fracture Echo with EF of greater than 70%, LV wall motion normal. Pain management. Ortho evaluated, currently being managed conservatively, f/u as an OP. Monitor H&H, lab in am Vitamin D level low, started vitamin D supplementation 02/03. Recommend outpatient DEXA scan. Pt was made aware. Right knee osteoarthritis: severe, pt reports problem moving around. c/w pain meds. local voltaren gel. Ortho following, await recs. s/p knee injection 02/04 by ortho. pt reporting not much improvement, xr rt knee in am, and if pt still w/ significant rt knee pain, recall ortho (3) Hyperglycemia: (4) Diabetes mellitus, type II: Plan: Random glucose 300 in ER A1c: 7.9 on 11/17/23; a1c 7.6 this admission Hold home metformin, repaglinide Novolog sliding scale per protocol Glycemic pharmacy consulted. (5) Hypertension: Plan: Continue amlodipine, HCTZ, lisinopril with holding parameters (6) Hypercholesterolemia: Plan: Continue atorvastatin (7) History of seizure disorder: Plan: No history seizure since 1962 DVT Prophylaxis SCDs Full Code as per discussion with pt Follows with Dr Swift for routine care PT/OT, likely will need rehab. Admission and Anticipated Discharge Date Admission Date: February 03, 2024 Subjective Patient was seen and examined at bedside. Patient was sitting up in chair, on room air, NAD, reports ongoing discomfort in the right knee but knee swelling getting better now, left shoulder on sling. Reports impaired ambulation due to left knee pain, c.w voltaren gel. c/w cold compression . Will get Knee XR in AM and if symptoms still affecting her ADLs, will recall ortho. Patient reports no other ROS. Physical Exam Physical Exam: GENERAL APPEARANCE: AxOx4, generally well-appearing female, no acute distress. HEENT: NC, AT. MMM. EOMI, clear conjunctiva, oropharynx clear. NECK: Supple without lymphadenopathy. No stiffness or restricted ROM. HEART: Normal rate and regular rhythm, normal S1/S1, no m/r/g LUNGS: CTAB, moving air well. No crackles or wheezes are heard. ABDOMEN: Soft, nontender, nondistended with good bowel sounds heard. BACK: No CVAT, no obvious deformity. EXTREMITIES: Without cyanosis, clubbing or edema. LUE in sling. Bruise noted anteriorly in left shoulder. NEUROLOGICAL: Grossly nonfocal. Alert and oriented, moving all 4 extremities. CN not formally tested but appear grossly intact. Skin: Warm and dry without any rash. Results & Data Results & Data Vital Signs (Past 12 Hours) Vital Signs Temp Pulse Pulse Resp BP Pulse Ox O2 Del Method 02/07/24 11:54 37.0 C 77 16 147/78 H 97 Room Air 02/07/24 08:45 36.6 C 96 H 20 152/85 H 96 Room Air 02/07/24 07:08 72 02/07/24 03:01 36.5 C 65 18 164/87 H 96 Room Air (1) Fall Encounter type: initial encounter Qualified Code(s): W19.XXXA - Unspecified fall, initial encounter (2) Fracture, humerus Encounter type: initial encounter Fracture alignment: displaced Fracture type: closed Humerus Location: surgical neck Laterality: left
[2024-02-07] MEDS: LANTUS PER UNIT CHARGE SQ SCH (21:18)
[2024-02-08 06:55] LABS: Hematocrit (blood only) 31.6 % (37.0-47.0); Hemoglobin 10.9 g/dl (12.0-16.0); Mean Corpuscular Hemoglobin 30.8 pg (25.0-34.0); Mean Corpuscular Hgb Conc 34.5 g/dL (32.0-36.0); Mean Corpuscular Volume 89.3 fL (80.0-100.0); Mean Platelet Volume 9.6 fL (9.4-12.4); Platelet Count 265 K/uL (130-400); RDW Coefficient of Variation 12.5 % (11.5-14.5); RDW Standard Deviation 40.9 fL (36.4-46.3); Red Blood Count 3.54 M/uL (4.20-5.40)
[2024-02-08 07:17] LABS: Calcium 9.2 mg/dl (8.6-10.3); Magnesium 1.7 mg/dl (1.7-2.4); Potassium 3.5 mmol/L (3.5-5.1)
[2024-02-08 07:22] LABS: BUN Creatinine Ratio 25.6 (10-20); Est GFR (African American) 116.9 ml/min; Est GFR (Non-African American) 100.9 ml/min; Phosphorus 3.8 mg/dl (2.5-4.9)
--- NOTE | 2024-02-08 07:33 | XRay Report ---
XR knee RT 3V HISTORY: 73 years-old Female knee pain not improvng chronic right knee pain COMPARISON: 02/03/2024 TECHNIQUE: 3 views of the right knee FINDINGS: Severe tricompartmental osteoarthritis redemonstrated. There is decreased size of the joint effusion which is now small. Arterial calcifications. There is an ill-defined vertically oriented lucency invo lving the posterior tibia on the lateral view. IMPRESSION: 1. Ill-defined cortical lucency of the posterior tibia seen on the lateral view only is suggestive of an acute or subacute nondisplaced fracture. 2. Severe tricompartmental osteoarthritis. 3. Small joint effusion has decreased in size from prior. ACT 112: Negative or not required by law. The above report was generated using voice recognition software. It may contain grammatical, syntax o r spelling errors. Electronically signed by: Mann Hoskins M.D. 02/08/2024 7:31 AM
[2024-02-08] MEDS ORDERED: ceFAZolin 2000MG 2,000 MG/15 ML SYR IV ONE (09:55)
--- NOTE | 2024-02-08 10:55 | CT Scan Report ---
CT shoulder LT wo con HISTORY: 73 years-old Female pain Acute left shoulder pain with acute proximal left humeral fracture . COMPARISON: Radiographs 02/05/2024. TECHNIQUE: Multiple axial CT images of the left shoulder were obtained without IV contrast. Additiona l 3-D rendered images were generated from a separate workstation. A dose lowering technique was used consistent with the principals of [employer]. FINDINGS: Study is degraded by respiratory motion. The imaged left lung appears clear. Cardiomegaly with powell ry arterial calcifications. There is a moderate-sized glenohumeral hemarthroses with deep tissue alla a surrounding the left shoulder. No lymphadenopathy. Tendons and ligaments are not well evaluated by CT technique. There is at least mild atrophy of the supraspinatus musculature. Demineralized appearance of the bones. There is moderate AC joint with at least mild glenohumeral ost eoarthritis. Subcortical cysts of the greater tuberosity. Redemonstration of a comminuted acute fract ure of the left humeral head and neck with numerous displaced fragments. Fracture lines involve the g reater tuberosity and surgical neck with preserved articular humeral head and lesser tuberosity. Ther e is impaction with 2.2 cm medial displacement. Tiny subcentimeter intra-articular fracture fragments are noted along with a 1.2 cm fracture fragment displaced anteriorly within the adjacent deltoid mus noel on image 36 series 5. IMPRESSION: 1. Acute, comminuted and displaced impacted proximal left humeral fracture is redemonstrated with fra ctures involving the greater tuberosity and surgical neck. 2. Subcentimeter intra-articular fracture fragments are noted in addition to a 1.2 cm fracture fragme nt displaced anteriorly within the adjacent deltoid muscle. 3. Moderate-sized hemarthrosis. ACT 112: Negative or not required by law. The above report was generated using voice recognition software. It may contain grammatical, syntax o r spelling errors. Dictated: 02/08/2024 10:18 AM Transcribed: 02/08/2024 10:34 AM Gary [id number] [email or web address] Electronically signed by: Mann Hoskins M.D. 02/08/2024 10:54 AM
--- NOTE | 2024-02-08 10:55 | CT Scan Report ---
CT knee RT wo con HISTORY: 73 years-old Female pain Acute pain of the right knee with subtle acute proximal tibial fra cture described on comparison radiographs. COMPARISON: Radiographs of the right knee same day. TECHNIQUE: Multiple axial CT images of the right knee were obtained without IV contrast. Additional 3 -D rendered images were generated from a separate workstation. A dose lowering technique was used con sistent with the principals of [employer]. FINDINGS: Severe tricompartmental osteoarthritis with chondrocalcinosis redemonstrated. Osteoarthritis is most pronounced within the medial and patellofemoral joints. Demineralized appearance of the bones. There is an acute nondisplaced vertically oriented fracture is confirmed within the posterior aspect of the medial tibial plateau, which demonstrates a approximately 4 mm of articular depression. Fracture ext ends into the intercondylar posterior tibia without significant displacement. The lateral tibial plat eau and distal femur appear intact. Large osteophyte resembling a pedunculated osteochondroma involve s the posterior aspect of the lateral femoral condyle measuring up to 3.4 cm in craniocaudal dimensio n. Small joint effusion. Articular calcifications. Subcutaneous and deep tissue edema of the knee. No la rge intra-articular loose body is identified. IMPRESSION: 1. Confirmation of the acute nondisplaced proximal tibial fracture, which involves the posterior aspe ct of the medial tibial plateau with extension into the posterior intercondylar tibia. There is a few millimeters of associated articular depression. 2. Small joint effusion. 3. Severe tricompartmental osteoarthritis with chondrocalcinosis. ACT 112: Negative or not required by law. The above report was generated using voice recognition software. It may contain grammatical, syntax o r spelling errors. Dictated: 02/08/2024 10:26 AM Transcribed: 02/08/2024 10:38 AM Gary [id number] [email or web address] Electronically signed by: Mann Hoskins M.D. 02/08/2024 10:54 AM
--- NOTE | 2024-02-08 12:00 | Orthopedic Progress Note ---
Date of Service February 08, 2024 Assessment & Plan (1) Fracture, humerus: Plan: Displaced left proximal humerus fracture with change in alignment. CT completed today, further displacement noted. She was seen earlier by Dr. Padilla and discussed surgical intervention. Risks and benefits were discussed including but not limited to infection bleeding, pain, scarring, nerve and blood vessel damage, weakness, wound problems, stiffness, incomplete relief of symp toms, hardware failure, malunion, nonunion, arthritis, blood clots, embolism, heart attack stroke or . Consent was obtained by Dr. Padilla. She will be taken to the OR for left humeral open reduction internal fixation humeral nailing on 02/09/2024. She will be NPO at midnight, order placed. Preop antibiotics ordered for tomorrow education liaison to the OR Continue shoulder immobilizer at all times. She can do gentle range of motion of her elbow wrist forearm and fingers as tolerated. Ice to shoulder as tolerated throughout day Most likely will need transition to rehabilitation center postoperatively once medically stable. Case management will continue to follow and do discharge planning. Present on Admission?: Yes (2) Closed fracture of proximal end of right tibia: Plan: Further imaging was obtained, CT of the right knee. There is proximal tibia fracture nondisplaced, nonsurgical Patient will be nonweightbearing on the right lower extremity at all times. No brace or immobilizer required at this time. She is able to do gentle range of motion as tolerated for the knee. She can utilize ice over the knee as tolerated daily as needed. Anticipate repeat imaging in our office as outpatient prior to progressing weightbearing in the future. Patient is aware of weightbearing limitations and verbalized understanding. Admission and Anticipated Discharge Date Admission Date: February 03, 2024 Subjective Patient is a 73-year-old [id number] female. She was seen and examined sitting up right in bed. She is in good spirits. She states that she has pain in her left shoulder and rated 4/10. She states the knee is sore however today earlier when she was upright walking on it it started to feel better. Her left upper extremity is in a sling and she reports this is comfortable. She does report utilizing ice however it was leaking so she removed it. She denies any numbness or tingling in her fingers. She complains of swelling in her bilateral lower extremities and contributes this from not doing anything since being in the hospital. She denies of any calf pain, chest pain, shortness of breath, fever or chills. Review of Systems Review of Systems: Please refer to HPI Physical Exam Physical Exam: General: Well-developed, well-nourished no acute distress. Sitting on edge of bed. Alert and oriented x 3. Skin: Warm and dry with good turgor. No rashes. Continues to have resolving ecchymosis and edema present in the anterior left shoulder. No open wounds. Musculoskeletal: Left upper extremity is in place in sling positioned appropriately in front of her over her abdomen. She has tenderness over the proximal humerus and shoulder as to be expected. She is able to perform active range of motion of the elbow, wrist, and digits. Range of motion of the left shoulder was not assessed. She has minimal discomfort with palpation at the right knee joint line. She is able to extend the knee however she does not have full extension with seated position. She is able to slightly flex the knee less than 90 degrees per patient this is baseline. Neurologic: Sensation is intact of left upper and right lower extremity. Results & Data Vital Signs (Past 12 Hours) Vital Signs Temp Pulse Resp BP Pulse Ox O2 Del Method 02/08/24 11:24 36.6 C 76 18 163/82 H 96 Room Air 02/08/24 07:31 36.5 C 67 15 165/72 H 97 Room Air 02/08/24 05:30 163/82 H 02/08/24 04:22 170/84 H 02/08/24 04:08 36.6 C 76 18 170/91 H 95 Room Air 02/08/24 00:42 36.5 C 72 20 159/74 H 94 Room Air Laboratory Results 02/08/24 02/08/24 02/07/24 Range/Units 08:23 06:23 20:47 WBC 7.00 (4.8-10.8) K/ul RBC 3.54 L (4.20-5.40) M/uL Hgb 10.9 L (12.0-16.0) g/dl Hct 31.6 L (37.0-47.0) % MCV 89.3 (80.0-100.0) fL MCH 30.8 (25.0-34.0) pg MCHC 34.5 (32.0-36.0) g/dL RDW Std Deviation 40.9 (36.4-46.3) fL RDW Coeff of Janet 12.5 (11.5-14.5) % Plt Count 265 (130-400) K/uL MPV 9.6 (9.4-12.4) fL Sodium 136 (136-145) mmol/L Potassium 3.5 (3.5-5.1) mmol/L Chloride 101 (98-107) mmol/L Carbon Dioxide 28 (21-32) mmol/L Anion Gap 7 (3-11) BUN 11 (6-23) mg/dl Creatinine 0.43 L (0.6-1.2) mg/dl Est Cr Clr Drug Dosing 114.0 ml/min Est GFR ( Amer) 116.9 ml/min Est GFR (Non-Af Amer) 100.9 ml/min BUN/Creatinine Ratio 25.6 H (10-20) Glucose 194 H (70-99(Fasting)) mg/dl POC Glucose 183 H 219 H (70-99) mg/dl Calcium 9.2 (8.6-10.3) mg/dl Phosphorus 3.8 (2.5-4.9) mg/dl Magnesium 1.7 (1.7-2.4) mg/dl 02/07/24 02/07/24 02/07/24 Range/Units 17:17 14:26 12:26 WBC (4.8-10.8) K/ul RBC (4.20-5.40) M/uL Hgb (12.0-16.0) g/dl Hct (37.0-47.0) % MCV (80.0-100.0) fL MCH (25.0-34.0) pg MCHC (32.0-36.0) g/dL RDW Std Deviation (36.4-46.3) fL RDW Coeff of Janet (11.5-14.5) % Plt Count (130-400) K/uL MPV (9.4-12.4) fL Sodium (136-145) mmol/L Potassium (3.5-5.1) mmol/L Chloride (98-107) mmol/L Carbon Dioxide (21-32) mmol/L Anion Gap (3-11) BUN (6-23) mg/dl Creatinine (0.6-1.2) mg/dl Est Cr Clr Drug Dosing ml/min Est GFR ( Amer) ml/min Est GFR (Non-Af Amer) ml/min BUN/Creatinine Ratio (10-20) Glucose (70-99(Fasting)) mg/dl POC Glucose 88 350 H* 316 H* (70-99) mg/dl Calcium (8.6-10.3) mg/dl Phosphorus (2.5-4.9) mg/dl Magnesium (1.7-2.4) mg/dl 02/07/24 Range/Units 12:25 WBC (4.8-10.8) K/ul RBC (4.20-5.40) M/uL Hgb (12.0-16.0) g/dl Hct (37.0-47.0) % MCV (80.0-100.0) fL MCH (25.0-34.0) pg MCHC (32.0-36.0) g/dL RDW Std Deviation (36.4-46.3) fL RDW Coeff of Janet (11.5-14.5) % Plt Count (130-400) K/uL MPV (9.4-12.4) fL Sodium (136-145) mmol/L Potassium (3.5-5.1) mmol/L Chloride (98-107) mmol/L Carbon Dioxide (21-32) mmol/L Anion Gap (3-11) BUN (6-23) mg/dl Creatinine (0.6-1.2) mg/dl Est Cr Clr Drug Dosing ml/min Est GFR ( Amer) ml/min Est GFR (Non-Af Amer) ml/min BUN/Creatinine Ratio (10-20) Glucose (70-99(Fasting)) mg/dl POC Glucose 304 H* (70-99) mg/dl Calcium (8.6-10.3) mg/dl Phosphorus (2.5-4.9) mg/dl Magnesium (1.7-2.4) mg/dl Diagnostic Findings Knee X-Ray 02/08/24 07:00 XR knee RT 3V HISTORY: 73 years-old Female knee pain not improvng chronic right knee pain COMPARISON: 02/03/2024 TECHNIQUE: 3 views of the right knee FINDINGS: Severe tricompartmental osteoarthritis redemonstrated. There is decreased size of the joint effusion which is now small. Arterial calcifications. There is an ill-defined vertically oriented lucency involving the posterior tibia on the lateral view. IMPRESSION: 1. Ill-defined cortical lucency of the posterior tibia seen on the lateral view only is suggestive of an acute or subacute nondisplaced fracture. 2. Severe tricompartmental osteoarthritis. 3. Small joint effusion has decreased in size from prior. ACT 112: Negative or not required by law. The above report was generated using voice recognition software. It may contain grammatical, syntax or spelling errors. Electronically signed by: Mann Hoskins M.D. 02/08/2024 7:[address] 02/08/24 08:51 CT knee RT wo con HISTORY: 73 years-old Female pain Acute pain of the right knee with subtle acute proximal tibial fracture described on comparison radiographs. COMPARISON: Radiographs of the right knee same day. TECHNIQUE: Multiple axial CT images of the right knee were obtained without IV contrast. Additional 3-D rendered images were generated from a separate workstation. A dose lowering technique was used consistent with the principals of [employer]. FINDINGS: Severe tricompartmental osteoarthritis with chondrocalcinosis redemonstrated. Osteoarthritis is most pronounced within the medial and patellofemoral joints. Demineralized appearance of the bones. There is an acute nondisplaced vertically oriented fracture is confirmed within the posterior aspect of the medial tibial plateau, which demonstrates a approximately 4 mm of articular depression. Fracture extends into the intercondylar posterior tibia without significant displacement. The lateral tibial plateau and distal femur appear intact. Large osteophyte resembling a pedunculated osteochondroma involves the posterior aspect of the lateral femoral condyle measuring up to 3.4 cm in craniocaudal dimension. Small joint effusion. Articular calcifications. Subcutaneous and deep tissue edema of the knee. No large intra-articular loose body is identified. IMPRESSION: 1. Confirmation of the acute nondisplaced proximal tibial fracture, which involves the posterior aspect of the medial tibial plateau with extension into the posterior intercondylar tibia. There is a few millimeters of associated articular depression. 2. Small joint effusion. 3. Severe tricompartmental osteoarthritis with chondrocalcinosis. ACT 112: Negative or not required by law. The above report was generated using voice recognition software. It may contain grammatical, syntax or spelling errors. Dictated: 02/08/2024 10:26 AM Transcribed: 02/08/2024 10:38 AM Gary [id number] [email or web address] Electronically signed by: Mann Hoskins M.D. 02/08/2024 10:[address] 02/08/24 09:28 CT shoulder LT wo con HISTORY: 73 years-old Female pain Acute left shoulder pain with acute proximal left humeral fracture. COMPARISON: Radiographs 02/05/2024. TECHNIQUE: Multiple axial CT images of the left shoulder were obtained without IV contrast. Additional 3-D rendered images were generated from a separate workstation. A dose lowering technique was used consistent with the principals of [employer]. FINDINGS: Study is degraded by respiratory motion. The imaged left lung appears clear. Cardiomegaly with coronary arterial calcifications. There is a moderate-sized glenohumeral hemarthroses with deep tissue edema surrounding the left shoulder. No lymphadenopathy. Tendons and ligaments are not well evaluated by CT technique. There is at least mild atrophy of the supraspinatus musculature. Demineralized appearance of the bones. There is moderate AC joint with at least mild glenohumeral osteoarthritis. Subcortical cysts of the greater tuberosity. Redemonstration of a comminuted acute fracture of the left humeral head and neck with numerous displaced fragments. Fracture lines involve the greater tuberosity and surgical neck with preserved articular humeral head and lesser tuberosity. There is impaction with 2.2 cm medial displacement. Tiny subcentimeter intra- articular fracture fragments are noted along with a 1.2 cm fracture fragment displaced anteriorly within the adjacent deltoid muscle on image 36 series 5. IMPRESSION: 1. Acute, comminuted and displaced impacted proximal left humeral fracture is redemonstrated with fractures involving the greater tuberosity and surgical neck. 2. Subcentimeter intra-articular fracture fragments are noted in addition to a 1.2 cm fracture fragment displaced anteriorly within the adjacent deltoid muscle. 3. Moderate-sized hemarthrosis. ACT 112: Negative or not required by law. The above report was generated using voice recognition software. It may contain grammatical, syntax or spelling errors. Dictated: 02/08/2024 10:18 AM Transcribed: 02/08/2024 10:34 AM Gary [id number] [email or web address] Electronically signed by: Mann Hoskins M.D. 02/08/2024 10:54 AM (1) Fracture, humerus Encounter type: initial encounter Fracture alignment: displaced Fracture type: closed Humerus Location: surgical neck Laterality: left
--- NOTE | 2024-02-08 15:05 | Hospitalist Progress Note ---
Date of Service February 08, 2024 Assessment & Plan (1) Fall: (2) Fracture, humerus: Plan: Patient is 73 year old female with PMH DM II, HTN, dyslipidemia, history of seizure disorder last seizure in 1962, GERD presented to ER complaint of fall with subsequent left shoulder pain. Pt reports ongoing stressor at home and as a result poor appetite lately. She didn't feel palpitation/dizziness/chest pain/warmth/nausea/vomiting surrounding fall. She felt weak and was aware she is about to fall and fell on her left side (tried to grab table nearby but couldn't). In ER vitals stable, glucose 300, other electrolytes unremarkable. Troponin negative x 2. CT Head: no acute intracranial abnormality CT C-spine: no acute fracture CXR: no acute infiltrate Left shoulder xray: Comminuted and displaced left humeral head/neck fracture CT left shoulder: 1. Acute, comminuted and displaced impacted proximal left humeral fracture is redemonstrated with fractures involving the greater tuberosity and surgical neck. 2. Subcentimeter intra-articular fracture fragments are noted in addition to a 1.2 cm fracture fragment displaced anteriorly within the adjacent deltoid muscle. 3. Moderate-sized hemarthrosis. Echo with EF of greater than 70%, LV wall motion normal. Pain management. Ortho evaluated, n.p.o. midnight, surgical repair tomorrow. Monitor H&H, lab in am Vitamin D level low, started vitamin D supplementation 02/03. Recommend outpatient DEXA scan. Pt was made aware. Right knee osteoarthritis/closed fracture of proximal end of right tibia: severe osteoarthritis right knee (s/p corticosteroid knee injection), pt reports problem ambulating. Repeat knee x-ray concerning for fracture, CT of the knee was done with confirmation of acute nondisplaced proximal tibial fracture. Pain management, bowel regimen. Orthopedic on board, nonweightbearing RLE. Will follow recommendation. Follow-up with orthopedics as an outpatient. (3) Hyperglycemia: (4) Diabetes mellitus, type II: Plan: Random glucose 300 in ER A1c: 7.9 on 11/17/23; a1c 7.6 this admission Hold home metformin, repaglinide Novolog sliding scale per protocol Glycemic pharmacy consulted. (5) Hypertension: Plan: Continue amlodipine, HCTZ, lisinopril with holding parameters (6) Hypercholesterolemia: Plan: Continue atorvastatin (7) History of seizure disorder: Plan: No history seizure since 1962 DVT Prophylaxis SCDs Full Code as per discussion with pt Follows with Dr Swift for routine care PT/OT, likely will need rehab. Admission and Anticipated Discharge Date Admission Date: February 03, 2024 Subjective Patient was seen and examined at bedside. Patient was lying in bed, on room air, NAD, resting comfortably. Patient reports right knee pain getting slightly better. Patient updated regarding possibility of fracture x right knee, and nonweightbearing on right lower extremity. Patient voiced understanding. Patient denies any history of blood clot or stroke or stent of heart attack. Patient would be able to walk couple of flight of stairs and 2-3 blocks without any shortness of breath or feeling winded prior to this acute issue. Patient is at moderate surgical risk for much-needed orthopedic surgery. Patient reports no other ROS. Physical Exam Physical Exam: GENERAL APPEARANCE: AxOx4, generally well-appearing female, no acute distress. HEENT: NC, AT. MMM. EOMI, clear conjunctiva, oropharynx clear. NECK: Supple without lymphadenopathy. No stiffness or restricted ROM. HEART: Normal rate and regular rhythm, normal S1/S1, no m/r/g LUNGS: CTAB, moving air well. No crackles or wheezes are heard. ABDOMEN: Soft, nontender, nondistended with good bowel sounds heard. BACK: No CVAT, no obvious deformity. EXTREMITIES: Without cyanosis, clubbing or edema. LUE in sling. Bruise noted anteriorly in left shoulder. NEUROLOGICAL: Grossly nonfocal. Alert and oriented, moving all 4 extremities. CN not formally tested but appear grossly intact. Skin: Warm and dry without any rash. Results & Data Results & Data Vital Signs (Past 12 Hours) Vital Signs Temp Pulse Resp BP Pulse Ox O2 Del Method 02/08/24 11:24 36.6 C 76 18 163/82 H 96 Room Air 02/08/24 07:31 36.5 C 67 15 165/72 H 97 Room Air 02/08/24 05:30 163/82 H 02/08/24 04:22 170/84 H 02/08/24 04:08 36.6 C 76 18 170/91 H 95 Room Air (1) Fall Encounter type: initial encounter Qualified Code(s): W19.XXXA - Unspecified fall, initial encounter (2) Fracture, humerus Encounter type: initial encounter Fracture alignment: displaced Fracture type: closed Humerus Location: surgical neck Laterality: left
[2024-02-08] MEDS: POTASSIUM CHLORIDE CRTAB 20 MEQ TABCR PO STA (15:06)
[2024-02-08] MEDS: MAGNESIUM SULFATE / D5W 1 GM/100 ML BAG IV SCH (15:09)
[2024-02-09] MEDS: ceFAZolin 2000MG 2,000 MG/15 ML SYR IV ONE (06:20)
[2024-02-09 07:13] LABS: Hematocrit (blood only) 31.8 % (37.0-47.0); Mean Corpuscular Hemoglobin 31.3 pg (25.0-34.0); Mean Corpuscular Hgb Conc 34.6 g/dL (32.0-36.0); Mean Corpuscular Volume 90.3 fL (80.0-100.0); Mean Platelet Volume 9.5 fL (9.4-12.4); Platelet Count 292 K/uL (130-400); RDW Coefficient of Variation 12.7 % (11.5-14.5); RDW Standard Deviation 41.5 fL (36.4-46.3); Red Blood Count 3.52 M/uL (4.20-5.40); White Blood Count 6.32 K/ul (4.8-10.8)
[2024-02-09 07:26] LABS: BUN Creatinine Ratio 21.2 (10-20); Calcium 9.4 mg/dl (8.6-10.3); Creatinine Clr Calc Pharmacy 94.3 ml/min; Est GFR (African American) 109.9 ml/min; Est GFR (Non-African American) 94.8 ml/min; Magnesium 1.6 mg/dl (1.7-2.4); Phosphorus 3.3 mg/dl (2.5-4.9); Potassium 3.8 mmol/L (3.5-5.1)
--- NOTE | 2024-02-09 09:25 | Orthopedic Progress Note ---
Date of Service February 09, 2024 Assessment & Plan (1) Fracture, humerus: Plan: Displaced left proximal humerus fracture with change in alignment confirmed with CT 02/07. She will be taken to the OR for left humeral open reduction internal fixation humeral nailing today, 02/08 She has been NPO and advised to remain NPO Preop antibiotics have been ordered and will be administered health promotion coordinator to the OR Continue shoulder immobilizer at all times. May use ice to the shoulder as needed and gentle wrist and finger range of motion. Most likely will need transition to rehabilitation center postoperatively once medically stable. Case management will continue to follow and do discharge planning. (2) Closed fracture of proximal end of right tibia: Plan: proximal tibia fracture nondisplaced, nonsurgical confirmed on CT 02/07 Patient will be nonweightbearing on the right lower extremity at all times. No brace or immobilizer required at this time, however patient is asking about a brace for support for her knee. Will update Dr. Padilla and if agreeable this will be ordered for her. She is able to do gentle range of motion as tolerated for the knee. She can utilize ice over the knee as tolerated daily as needed. Anticipate repeat imaging in our office as outpatient prior to progressing weightbearing in the future. Patient would likely need a wheel chair for maneuvering due to limitations with weightbearing on the right lower extremity and the limitations with the left upper extremity Patient is aware of weightbearing limitations and verbalized understanding. Admission and Anticipated Discharge Date Admission Date: February 03, 2024 Subjective Patient is a 73-year-old [id number] female who is known patient Dr. Melchor. She has a history of having a displaced comminuted humerus fracture of the left upper extremity and a nondisplaced proximal tibia fracture of the right lower extremity. She was seen bedside this a.m. The plan is to go to the OR for the left upper extremity ORIF. She reports that she continues to have pain in the left shoulder. She denies any numbness or tingling of the upper extremity on the left. She has been utilizing a sling and swath. She states she has been trying to move the wrist and fingers daily to help with some of the swelling. She reports being n.p.o. since midnight. She offers no concerns regarding surgery today. She reports she has been maintaining nonweightbearing on the right lower extremity however she reports it is very difficult with trying to transition to the bedside commode and is wondering how she will be able to maintain this. She states she has been moving the knee without difficulty or much pain. She is questioning if she needs a brace for her knee just for support. She denies any swelling redness fevers or chills. She offers no concerns. Review of Systems Review of Systems: Please refer to HPI Physical Exam Physical Exam: General: Well-developed, well-nourished no acute distress. laying supine in bed. Alert and oriented x 3. Skin: Warm and dry with good turgor. No rashes or open areas. Resolving ecchymosis and edema present in the anterior left shoulder and hand Musculoskeletal: Left upper extremity is in place in sling repositioned appropriately in front of her over her abdomen. Unchanged tenderness over the proximal humerus and shoulder as to be expected. She is able to perform active range of motion of the elbow, wrist, and digits. Reports stiffness in elbow today. Range of motion of the left shoulder was not assessed. Right lower extremity has a pillow under the leg. No effusion appreciated. Skin is normal in color and temperature when compared to the left lower extremity. Mild discomfort with palpation at the right knee joint line. Her range of motion is limited to approximately 10 degrees extension and 25-30 degrees flexion. Per patient this has been ongoing since she had the knee replaced. Neurologic: Sensation is intact of left upper and right lower extremity. Results & Data Vital Signs (Past 12 Hours) Vital Signs Temp Pulse Pulse Resp BP Pulse Ox O2 Del Method 02/09/24 07:36 36.5 C 75 18 162/89 H 95 Room Air 02/09/24 03:57 36.6 C 79 20 154/85 H 94 Room Air 02/09/24 00:46 36.7 C 69 18 163/75 H 94 Room Air 02/09/24 00:14 77 Laboratory Results 02/09/24 02/09/24 02/09/24 Range/Units 08:32 06:35 06:19 WBC 6.32 (4.8-10.8) K/ul RBC 3.52 L (4.20-5.40) M/uL Hgb 11.0 L (12.0-16.0) g/dl Hct 31.8 L (37.0-47.0) % MCV 90.3 (80.0-100.0) fL MCH 31.3 (25.0-34.0) pg MCHC 34.6 (32.0-36.0) g/dL RDW Std Deviation 41.5 (36.4-46.3) fL RDW Coeff of Janet 12.7 (11.5-14.5) % Plt Count 292 (130-400) K/uL MPV 9.5 (9.4-12.4) fL Sodium 137 (136-145) mmol/L Potassium 3.8 (3.5-5.1) mmol/L Chloride 101 (98-107) mmol/L Carbon Dioxide 28 (21-32) mmol/L Anion Gap 8 (3-11) BUN 11 (6-23) mg/dl Creatinine 0.52 L (0.6-1.2) mg/dl Est Cr Clr Drug Dosing 94.3 ml/min Est GFR ( Amer) 109.9 ml/min Est GFR (Non-Af Amer) 94.8 ml/min BUN/Creatinine Ratio 21.2 H (10-20) Glucose 219 H (70-99(Fasting)) mg/dl POC Glucose 246 H 221 H (70-99) mg/dl Calcium 9.4 (8.6-10.3) mg/dl Phosphorus 3.3 (2.5-4.9) mg/dl Magnesium 1.6 L (1.7-2.4) mg/dl Blood Type O Positive Antibody Screen NEGATIVE 02/08/24 02/08/24 02/08/24 Range/Units 21:14 17:19 12:17 WBC (4.8-10.8) K/ul RBC (4.20-5.40) M/uL Hgb (12.0-16.0) g/dl Hct (37.0-47.0) % MCV (80.0-100.0) fL MCH (25.0-34.0) pg MCHC (32.0-36.0) g/dL RDW Std Deviation (36.4-46.3) fL RDW Coeff of Janet (11.5-14.5) % Plt Count (130-400) K/uL MPV (9.4-12.4) fL Sodium (136-145) mmol/L Potassium (3.5-5.1) mmol/L Chloride (98-107) mmol/L Carbon Dioxide (21-32) mmol/L Anion Gap (3-11) BUN (6-23) mg/dl Creatinine (0.6-1.2) mg/dl Est Cr Clr Drug Dosing ml/min Est GFR ( Amer) ml/min Est GFR (Non-Af Amer) ml/min BUN/Creatinine Ratio (10-20) Glucose (70-99(Fasting)) mg/dl POC Glucose 166 H 118 H 227 H (70-99) mg/dl Calcium (8.6-10.3) mg/dl Phosphorus (2.5-4.9) mg/dl Magnesium (1.7-2.4) mg/dl Blood Type Antibody Screen Diagnostic Findings Knee CT 02/08/24 08:51 CT knee RT wo con HISTORY: 73 years-old Female pain Acute pain of the right knee with subtle acute proximal tibial fracture described on comparison radiographs. COMPARISON: Radiographs of the right knee same day. TECHNIQUE: Multiple axial CT images of the right knee were obtained without IV contrast. Additional 3-D rendered images were generated from a separate workstation. A dose lowering technique was used consistent with the principals of ALARA. FINDINGS: Severe tricompartmental osteoarthritis with chondrocalcinosis redemonstrated. Osteoarthritis is most pronounced within the medial and patellofemoral joints. Demineralized appearance of the bones. There is an acute nondisplaced vertically oriented fracture is confirmed within the posterior aspect of the medial tibial plateau, which demonstrates a approximately 4 mm of articular depression. Fracture extends into the intercondylar posterior tibia without significant displacement. The lateral tibial plateau and distal femur appear intact. Large osteophyte resembling a pedunculated osteochondroma involves the posterior aspect of the lateral femoral condyle measuring up to 3.4 cm in craniocaudal dimension. Small joint effusion. Articular calcifications. Subcutaneous and deep tissue edema of the knee. No large intra-articular loose body is identified. IMPRESSION: 1. Confirmation of the acute nondisplaced proximal tibial fracture, which involves the posterior aspect of the medial tibial plateau with extension into the posterior intercondylar tibia. There is a few millimeters of associated articular depression. 2. Small joint effusion. 3. Severe tricompartmental osteoarthritis with chondrocalcinosis. ACT 112: Negative or not required by law. The above report was generated using voice recognition software. It may contain grammatical, syntax or spelling errors. Dictated: 02/08/2024 10:26 AM Transcribed: 02/08/2024 10:38 AM Gary [id number] [email or web address] Electronically signed by: Mann Hoskins M.D. 02/08/2024 10:[address] 02/08/24 09:28 CT shoulder LT wo con HISTORY: 73 years-old Female pain Acute left shoulder pain with acute proximal left humeral fracture. COMPARISON: Radiographs 02/05/2024. TECHNIQUE: Multiple axial CT images of the left shoulder were obtained without IV contrast. Additional 3-D rendered images were generated from a separate workstation. A dose lowering technique was used consistent with the principals of FRANCISCO. FINDINGS: Study is degraded by respiratory motion. The imaged left lung appears clear. Cardiomegaly with coronary arterial calcifications. There is a moderate-sized glenohumeral hemarthroses with deep tissue edema surrounding the left shoulder. No lymphadenopathy. Tendons and ligaments are not well evaluated by CT technique. There is at least mild atrophy of the supraspinatus musculature. Demineralized appearance of the bones. There is moderate AC joint with at least mild glenohumeral osteoarthritis. Subcortical cysts of the greater tuberosity. Redemonstration of a comminuted acute fracture of the left humeral head and neck with numerous displaced fragments. Fracture lines involve the greater tuberosity and surgical neck with preserved articular humeral head and lesser tuberosity. There is impaction with 2.2 cm medial displacement. Tiny subcentimeter intra- articular fracture fragments are noted along with a 1.2 cm fracture fragment displaced anteriorly within the adjacent deltoid muscle on image 36 series 5. IMPRESSION: 1. Acute, comminuted and displaced impacted proximal left humeral fracture is redemonstrated with fractures involving the greater tuberosity and surgical neck. 2. Subcentimeter intra-articular fracture fragments are noted in addition to a 1.2 cm fracture fragment displaced anteriorly within the adjacent deltoid muscle. 3. Moderate-sized hemarthrosis. ACT 112: Negative or not required by law. The above report was generated using voice recognition software. It may contain grammatical, syntax or spelling errors. Dictated: 02/08/2024 10:18 AM Transcribed: 02/08/2024 10:34 AM Gary [id number] [email or web address] Electronically signed by: Mann Hoskins M.D. 02/08/2024 10:54 AM (1) Fracture, humerus Encounter type: initial encounter Fracture alignment: displaced Fracture type: closed Humerus Location: surgical neck Laterality: left
[2024-02-09] MEDS: INSULIN ASPART PER UNIT CHARGE SC SCH (09:55)
[2024-02-09] MEDS: MAGNESIUM SULFATE / D5W 1 GM/100 ML BAG IV SCH (09:56)
--- NOTE | 2024-02-09 12:09 | Anesthesiology Consultation ---
Date of Service February 09, 2024 Assessment & Plan (1) Encounter for pre-operative examination: Chart Review Chart Review: Acceptable Risk for Surgery History Surgery Operation Date: 02/09/24 07:00 Proposed Procedures p Left Proximal Humerus Nailing - Asher Padilla MD Height/Weight Height: 5 ft 2 in Weight: 79.8 kg Allergies Allergy/AdvReac Type Severity Reaction Status Date / Time naproxen Allergy Unknown TACHYCARDIA, Verified 02/03/24 12:17 DIZZINESS Medications Home Medications Medication Instructions Recorded Confirmed Last Taken amlodipine 5 mg tablet 5 mg PO QPM 02/03/24 02/03/24 02/02/24 aspirin 81 mg tablet,delayed 81 mg PO PM 02/03/24 02/03/24 02/02/24 release atorvastatin 40 mg tablet 40 mg PO QPM 02/03/24 02/03/24 02/02/24 cyanocobalamin (vitamin B-12) 1,000 mcg PO DAILY 02/03/24 02/03/24 02/02/24 1,000 mcg tablet (Vitamin B-12) hydrochlorothiazide 25 mg tablet 25 mg PO QPM 02/03/24 02/03/24 02/02/24 lisinopril 40 mg tablet 40 mg PO QAM 02/03/24 02/03/24 02/03/24 metformin 500 mg tablet,extended 1,000 mg PO BID 02/03/24 02/03/24 02/03/24 release 24 hr repaglinide 1 mg tablet See Rx Instructions .Route .COMPLEX 02/03/24 02/03/24 02/02/24 Active Medications Generic Name Dose Route Start Last Admin Trade Name Bari PRN Reason Stop Dose Admin Acetaminophen 1,000 mg 02/03/24 15:51 02/09/24 09:47 Acetaminophen 500 Mg Tab PO 03/04/24 15:50 1,000 mg Q8H KAEL Administration Amlodipine Besylate 5 mg 02/03/24 21:00 02/08/24 21:22 Amlodipine Besylate 5 Mg Tab PO 03/04/24 20:59 5 mg QPM KAEL Administration Atorvastatin Calcium 40 mg 02/03/24 21:00 02/08/24 21:22 Atorvastatin 40 Mg Tab PO 03/04/24 20:59 40 mg QPM KAEL Administration Cyanocobalamin 1,000 mcg 02/04/24 09:00 02/09/24 09:47 Cyanocobalamin (B-12) 500 Mcg Tablet PO 03/05/24 08:59 1,000 mcg DAILY KAEL Administration Diclofenac Sodium 2 gm 02/05/24 12:15 02/09/24 06:23 Diclofenac Sod 1% Gel 100 Gm Tube EXT 03/06/24 12:14 Not Given Q6H KAEL Protocol Diphenhydramine HCl 12.5 mg 02/06/24 16:33 02/06/24 16:56 Diphenhydramine 50 Mg/Ml Vial IV 03/07/24 16:32 12.5 mg Q4H PRN Administration Allergic Reaction Hydrochlorothiazide 25 mg 02/04/24 09:00 02/09/24 09:47 Hydrochlorothiazide 25 Mg Tab PO 03/04/24 20:59 25 mg QAM KEAL Administration Magnesium Sulfate/Dextrose 1 gm in 100 mls @ 50 mls/hr 02/09/24 08:30 02/09/24 09:56 Magnesium Sulfate / D5w IV 02/09/24 12:29 50 mls/hr Q2H KAEL Administration Insulin Aspart 0 units 02/09/24 07:30 02/09/24 09:55 Insulin Aspart Per Unit Charge SC 03/10/24 07:29 8 units Q6 KAEL Administration Protocol Insulin Glargine 20 units 02/07/24 09:00 02/09/24 09:55 Lantus Per Unit Charge SC 03/08/24 08:59 20 units DAILY KAEL Administration Protocol Insulin Glargine 0 units 02/07/24 21:00 02/08/24 21:19 Lantus Per Unit Charge SQ 03/06/24 20:59 Not Given HS [facility] Protocol Oxycodone HCl 5 mg 02/05/24 12:07 02/08/24 21:28 Oxycodone Hcl Ir 5 Mg Tab (Immediate Release) PO 02/17/24 15:50 5 mg Q4H PRN Administration Moderate Pain (Scale 4, 5, 6) Vitamin D 125 mcg 02/04/24 16:00 02/09/24 09:46 Cholecalciferol 125 Mcg (5,000 Units) Tab PO 03/05/24 15:59 125 mcg QAM KAEL Administration Past Medical History Medical History (Updated 02/09/24 @ 12:09 by Shay Valentin MD) Fracture of proximal end of tibia Anemia GERD (gastroesophageal reflux disease) History of seizure disorder Diabetes mellitus, type II Proximal humerus fracture Anxiety Diabetes Hypercholesterolemia Hypertension Past Family History Family History Other Cancer Congenital kidney disease Past Surgical History Surgical History History of cholecystectomy Social History Smoking Status: Never smoker Do You Dip or Chew Tobacco: No Hx Alcohol Use: No Hx Substance Use: No Physical Exam Vital Signs Last Vital Signs Temp 36.5 C 02/09/24 11:27 Pulse 83 02/09/24 11:27 Resp 18 02/09/24 11:27 BP 186/97 H 02/09/24 11:27 Pulse Ox 95 02/09/24 11:27 O2 Del Method Room Air 02/09/24 11:27 Testing Laboratory Results 02/09/24 06:35 02/09/24 06:35 PT 11.1 Seconds (9.0-12.0) 02/03/24 11:21 INR 1.0 (0.9-1.1) 02/03/24 11:21 APTT 24 Seconds (21-31) 02/03/24 11:21 Hemoglobin A1c 7.6 % (4.5-5.6) H 02/04/24 07:13 Blood Type O Positive 02/09/24 06:35 Antibody Screen NEGATIVE 02/09/24 06:35 02/09/24 02/09/24 08:32 06:19 POC Glucose 246 H 221 H Electrocardiogram Date: 02/04/24 Findings: + NSR @ (78) Echocardiogram Date: 02/03/24 EF: 70% LV Function: normal Other Findings: + LVH (moderate) Valvular Disease: + no significant valvular disease
[2024-02-09] MEDS ORDERED: LABETALOL HCL IV 5 MG/ML 20ML IV PRN (13:58)
--- NOTE | 2024-02-09 14:01 | Hospitalist Progress Note ---
Date of Service February 09, 2024 Assessment & Plan (1) Fall: (2) Fracture, humerus: Plan: Patient is 73 year old female with PMH DM II, HTN, dyslipidemia, history of seizure disorder last seizure in 1962, GERD presented to ER complaint of fall with subsequent left shoulder pain. Pt reports ongoing stressor at home and as a result poor appetite lately. She didn't feel palpitation/dizziness/chest pain/warmth/nausea/vomiting surrounding fall. She felt weak and was aware she is about to fall and fell on her left side (tried to grab table nearby but couldn't). In ER vitals stable, glucose 300, other electrolytes unremarkable. Troponin negative x 2. CT Head: no acute intracranial abnormality CT C-spine: no acute fracture CXR: no acute infiltrate Left shoulder xray: Comminuted and displaced left humeral head/neck fracture CT left shoulder: 1. Acute, comminuted and displaced impacted proximal left humeral fracture is redemonstrated with fractures involving the greater tuberosity and surgical neck. 2. Subcentimeter intra-articular fracture fragments are noted in addition to a 1.2 cm fracture fragment displaced anteriorly within the adjacent deltoid muscle. 3. Moderate-sized hemarthrosis. Echo with EF of greater than 70%, LV wall motion normal. Pain management. Ortho evaluated, n.p.o. currently, surgical repair today. Monitor H&H, lab in am Vitamin D level low, started vitamin D supplementation 02/03. Recommend outpatient DEXA scan. Pt was made aware. Right knee osteoarthritis/closed fracture of proximal end of right tibia: severe osteoarthritis right knee (s/p corticosteroid knee injection), pt reports problem ambulating. Repeat knee x-ray concerning for fracture, CT of the knee was done with confirmation of acute nondisplaced proximal tibial fracture. Pain management, bowel regimen. Orthopedic on board, nonweightbearing RLE. Will follow recommendation. Follow-up with orthopedics as an outpatient. (3) Hyperglycemia: (4) Diabetes mellitus, type II: Plan: Random glucose 300 in ER A1c: 7.9 on 11/17/23; a1c 7.6 this admission Hold home metformin, repaglinide Novolog sliding scale per protocol Glycemic pharmacy consulted. (5) Hypertension: Plan: Continue amlodipine, HCTZ, lisinopril with holding parameters. As needed blood pressure medications on board. (6) Hypercholesterolemia: Plan: Continue atorvastatin (7) History of seizure disorder: Plan: No history seizure since 1962 DVT Prophylaxis SCDs Full Code Follows with Dr Swift for routine care PT/OT, likely will need rehab. Admission and Anticipated Discharge Date Admission Date: February 03, 2024 Subjective Patient was seen and examined at bedside. Patient was lying in bed, on room air, NAD, resting comfortably. Patient reports right knee pain under control. Patient is aware of nonweightbearing on RLE. Patient is n.p.o. and awaiting surgery for her shoulder today. Patient offers no new complaints. Physical Exam Physical Exam: GENERAL APPEARANCE: AxOx4, generally well-appearing female, no acute distress. HEENT: NC, AT. MMM. EOMI, clear conjunctiva, oropharynx clear. NECK: Supple without lymphadenopathy. No stiffness or restricted ROM. HEART: Normal rate and regular rhythm, normal S1/S1, no m/r/g LUNGS: CTAB, moving air well. No crackles or wheezes are heard. ABDOMEN: Soft, nontender, nondistended with good bowel sounds heard. BACK: No CVAT, no obvious deformity. EXTREMITIES: Without cyanosis, clubbing or edema. LUE in sling. Bruise noted anteriorly in left shoulder. NEUROLOGICAL: Grossly nonfocal. Alert and oriented, moving all 4 extremities. CN not formally tested but appear grossly intact. Skin: Warm and dry without any rash. Results & Data Results & Data Vital Signs (Past 12 Hours) Vital Signs Temp Pulse Resp BP Pulse Ox O2 Del Method 02/09/24 11:27 36.5 C 83 18 186/97 H 95 Room Air 02/09/24 07:36 36.5 C 75 18 162/89 H 95 Room Air 02/09/24 03:57 36.6 C 79 20 154/85 H 94 Room Air (1) Fall Encounter type: initial encounter Qualified Code(s): W19.XXXA - Unspecified fall, initial encounter (2) Fracture, humerus Encounter type: initial encounter Fracture alignment: displaced Fracture type: closed Humerus Location: surgical neck Laterality: left
[2024-02-09] MEDS: lisinopril 20 MG TAB PO STA (14:25)
[2024-02-09] MEDS ORDERED: BUPIVACAINE 0.5 % 5 MG/1 ML PF 10ML VIAL ONE (15:21)
[2024-02-09] MEDS ORDERED: LIDOCAINE 2% 2 ML VIAL/AMP(20MG/ML) INFIL ONE (15:34)
[2024-02-09] MEDS ORDERED: ROCURONIUM BROMIDE 10 MG/ML 5 ML VIAL IV ONE ×2 (15:34→16:56)
[2024-02-09] MEDS ORDERED: ONDANSETRON INJ 2 MG/ML 2 ML VIAL ONE (15:34)
[2024-02-09] MEDS ORDERED: MIDAZOLAM HCL 1 MG/ML 2ML VIAL ONE (15:34)
[2024-02-09] MEDS: LACTATED RINGER'S 1,000 ML IV SCH (15:34)
[2024-02-09] MEDS ORDERED: PROPOFOL IV EMULSION 10 MG/ML 20 ML VIAL IV ONE (15:34)
[2024-02-09] MEDS ORDERED: fentaNYL citrate PF 100 MCG/2 ML VIAL ONE (15:35)
[2024-02-09] MEDS ORDERED: ATROPINE SULFATE 0.1 MG/ML 10ML SYR IV PRN (15:44)
[2024-02-09] MEDS ORDERED: ePHEDrine sulfate 50 MG/ML AMP IV PRN (15:44)
[2024-02-09] MEDS ORDERED: fentaNYL citrate PF 100 MCG/2 ML VIAL IV PRN (15:44)
[2024-02-09] MEDS ORDERED: ONDANSETRON INJ 2 MG/ML 2 ML VIAL IV PRN (15:44)
[2024-02-09] MEDS ORDERED: ROPIVACAINE 0.5% 5 MG/ML 30 ML VIAL ONE (15:46)
[2024-02-09] MEDS: ceFAZolin 2,000 MG/15 ML IV PUSH IV ONE (16:00)
[2024-02-09] MEDS ORDERED: DEXAMETHASONE SOD INJ 4 MG/ML VIAL ONE (16:28)
[2024-02-09] MEDS ORDERED: SUGAMMADEX SODIUM 200 MG/2 ML VIAL IV ONE (16:57)
--- NOTE | 2024-02-09 19:25 | Post Operative Brief Note ---
Immediate Post Op Note v1 Date of Surgery February 09, 2024 Pre & Post Diagnosis Operation Date: 02/09/24 07:00 Pre-Op Diagnosis: Displaced 2 part Surgical neck left proximal humerus fracture Post-Op Diagnosis: Same I identified the patient and participated in the time-out.: Yes Procedure Operation Date: 02/09/24 07:00 Actual Procedures p Closed Reduction, Left Humeral Nail(Left) - Asher Padilla MD Surgeon Asher Padilla MD Aed Trainer Gauri Nelson no resident or fellow available Estimated Blood Loss 25 Findings Consistent with Post-Op Diagnosis Specimens None Anesthesia Type General Regional Complications none Disposition Accompanied Patient To Recovery: No Disposition: Recovery Room
--- NOTE | 2024-02-09 19:47 | Operative Report ---
Post Operative Report Pre & Post Diagnosis Operation Date: 02/09/24 07:00 Pre-Op Diagnosis: Displaced left proximal humerus fracture Post-Op Diagnosis: Displaced left proximal humerus fracture I identified the patient and participated in the time-out.: Yes Procedure Operation Date: 02/09/24 07:00 Actual Procedures p Closed Reduction, Left Humeral Nail(Left) - Asher Padilla MD Surgeon Asher Padilla M.D. Product Development Gauri Nelson no resident or fellow available Estimated Blood Loss 25 Findings Consistent with Post-Op Diagnosis left proximal humerus fracture Specimens none Anesthesia Type General Regional Description of Procedure Patient was taken to the operating room, placed under general anesthesia. Given preoperative peripheral nerve block. Time out performed, prepped and draped in routine fashion. Given 2gm IV Ancef for surgical prophylaxis. I was present during the entire case and assisted with positioning, reduction of fracture, implantation of hardware, tissue retraction, hemostasis and closure. Please see Dr. Padilla's operative report for further detail. Patient was taken to recovery room in stable condition. I attest to the content of the Intraoperative Record and any orders documented therein. Any exceptions are noted below.
--- NOTE | 2024-02-09 20:26 | Anesthesiology Progress Note ---
Date of Service February 09, 2024 Anesthesia Post Procedure Vital Signs Vital Signs: Temp Pulse Pulse Pulse Resp BP Pulse Ox 02/09/24 20:15 97.9 F 94 H 14 163/89 H 94 02/09/24 20:05 92 H 16 163/89 H 95 02/09/24 19:55 91 H 16 181/107 H 99 02/09/24 19:46 98.1 F 84 18 190/101 H 99 02/09/24 15:15 98.1 F 82 20 166/93 H 95 02/09/24 11:27 97.7 F 83 18 186/97 H 95 02/09/24 07:36 97.7 F 75 18 162/89 H 95 02/09/24 03:57 97.9 F 79 20 154/85 H 94 02/09/24 00:46 98.1 F 69 18 163/75 H 94 02/09/24 00:14 77 O2 Del Method O2 Flow Rate 02/09/24 20:15 Room Air 02/09/24 20:05 Room Air 02/09/24 19:55 Oxymask 9 02/09/24 19:46 Oxymask 9 02/09/24 15:15 Room Air 02/09/24 11:27 Room Air 02/09/24 07:36 Room Air 02/09/24 03:57 Room Air 02/09/24 00:46 Room Air 02/09/24 00:14 Pain Intensity Left Shoulder: Pain Intensity: 5 Right Knee: Pain Intensity: 5 Transfer of Care Handoff Completed per policy Notes Mental Status: alert / awake / arousable and participated in evaluation Patient Amnestic to Procedure: Yes Nausea / Vomiting: adequately controlled Pain: adequately controlled Airway Patency, RR, SpO2: stable & adequate BP & HR: stable & adequate Hydration State: stable & adequate Anesthetic Complications: no major complications apparent and Pt Satisfied with anesthetic care
[2024-02-09] MEDS ORDERED: MAGNESIUM HYDROXIDE SUSP 30 ML UDC PO PRN (20:28)
[2024-02-09] MEDS ORDERED: bisacodyL 10 MG SUPP PR PRN (20:28)
[2024-02-09] MEDS ORDERED: NALOXONE HCL 0.4 MG/1 ML VIAL/CARP IV PRN (20:28)
[2024-02-09] MEDS: SODIUM CHLORIDE 0.9% 1,000 ML IV SCH (21:46)
[2024-02-09] MEDS: DOCUSATE SODIUM 100 MG CAP PO SCH (21:48)
[2024-02-09] MEDS: ACETAMINOPHEN 500 MG TAB PO SCH (21:50)
[2024-02-09] MEDS: LANTUS PER UNIT CHARGE SQ SCH (21:51)
[2024-02-09] MEDS: INSULIN ASPART PER UNIT CHARGE SC ONE (21:51)
[2024-02-09] MEDS ORDERED: Nursing to Pharmacy Communication SCH (23:30)
[2024-02-10] MEDS: INSULIN ASPART PER UNIT CHARGE SC SCH ×2 (00:37→01:44)
[2024-02-10] MEDS: ceFAZolin 2000MG 2,000 MG/15 ML SYR IV SCH (00:40)
--- NOTE | 2024-02-10 06:55 | Fluoroscopy Report ---
FL humerus LT 2V CLINICAL HISTORY: Left proximal humerus nailing COMPARISON STUDY: Left shoulder radiographs 02/05/2024 FLUOROSCOPY TIME: 4 minutes and 28.3 seconds FLUOROSCOPY IMAGES: 5 EXPOSURE DOSE: 36.767 mGy FINDINGS: Status post placement of an intramedullary dennis with 6 fixation cannulated screws fixating a n acute proximal humeral fracture which now demonstrates near-anatomic alignment. No dislocation. Gle nohumeral and AC joint osteoarthritis redemonstrated. IMPRESSION: Fluoroscopic assistance as above. ACT 112: Negative or not required by law. Electronically signed by: Mann Hoskins M.D. 02/10/2024 6:54 AM
[2024-02-10 07:41] LABS: Hematocrit (blood only) 30.1 % (37.0-47.0); Hemoglobin 10.3 g/dl (12.0-16.0); Mean Corpuscular Hemoglobin 30.9 pg (25.0-34.0); Mean Corpuscular Hgb Conc 34.2 g/dL (32.0-36.0); Mean Corpuscular Volume 90.4 fL (80.0-100.0); Mean Platelet Volume 9.2 fL (9.4-12.4); Platelet Count 312 K/uL (130-400); RDW Coefficient of Variation 12.7 % (11.5-14.5); RDW Standard Deviation 41.3 fL (36.4-46.3); Red Blood Count 3.33 M/uL (4.20-5.40); White Blood Count 12.02 K/ul (4.8-10.8)
[2024-02-10 07:47] LABS: BUN Creatinine Ratio 27.1 (10-20); Calcium 9.1 mg/dl (8.6-10.3); Creatinine Clr Calc Pharmacy 100.2 ml/min; Est GFR (African American) 112.8 ml/min; Est GFR (Non-African American) 97.3 ml/min; Magnesium 1.7 mg/dl (1.7-2.4); Potassium 3.6 mmol/L (3.5-5.1)
[2024-02-10] MEDS: lisinopril 40 MG TAB PO SCH (08:26)
[2024-02-10] MEDS: MAGNESIUM SULFATE / D5W 1 GM/100 ML BAG IV SCH (08:27)
[2024-02-10] MEDS: POTASSIUM CHLORIDE CRTAB 20 MEQ TABCR PO STA (08:27)
[2024-02-10] MEDS: LANTUS PER UNIT CHARGE SC SCH (09:27)
[2024-02-10] MEDS: traMADol HCL 50 MG TABLET PO PRN (09:28)
[2024-02-10] MEDS: APIXABAN 2.5 MG TAB PO SCH (10:57)
--- NOTE | 2024-02-10 11:29 | Orthopedic Progress Note ---
Date of Service February 10, 2024 Assessment & Plan (1) Fracture, humerus: Plan: Results of surgery discussed. Successful reduction and fixation. She can do active movement of hand wrist and elbow but movement of the shoulder will be passive for at least 4 to 6 weeks postop. She cannot bear weight on the left arm either. Recommend Eliquis for DVT prophylaxis. She will likely need placement due to her mobility restrictions. (2) Closed fracture of proximal end of right tibia: Plan: Nonweightbearing right lower extremity. She can do leg lifts and range of motion. She cannot bear weight on her left arm I think she will not be able to have good mobility or be on her feet given the combination of injuries that she has. Continue pain control and postop antibiotics for her shoulder. Due to her immobility recommend starting Eliquis. Placement.She is vitamin D deficient and this is being replaced. Admission and Anticipated Discharge Date Admission Date: February 03, 2024 Subjective Some pain. No tingling or numbness. Results of surgery discussed. Physical Exam Physical Exam: Right knee exam shows intact active straight leg raise positive moderate right knee effusion. The knee is not tender. Her range of motion is approximately 0/5/45 which she reports is her usual range of motion. The knee is stable in full extension and she has trace MCL laxity at about 20 degrees knee flexion. Examination of the left upper extremity shows her dressing is intact. She reports intact lateral shoulder sensation through the dressing. Arm and hand sensation otherwise intact with 1+ radial pulse. She can activate elbow flexion extension internal and external rotation of the shoulder as well as having intact median radial and ulnar motor and sensory functions. There is mild swelling of her hand Results & Data Vital Signs (Past 12 Hours) Vital Signs Temp Pulse Pulse Resp BP Pulse Ox O2 Del Method 02/10/24 07:56 36.5 C 70 20 108/64 94 Room Air 02/10/24 07:15 75 02/10/24 04:33 36.5 C 90 20 157/83 H 92 Room Air Laboratory Results Laboratory Results WBC 12.02 K/ul (4.8-10.8) H 02/10/24 07:08 RBC 3.33 M/uL (4.20-5.40) L 02/10/24 07:08 Hgb 10.3 g/dl (12.0-16.0) L 02/10/24 07:08 Hct 30.1 % (37.0-47.0) L 02/10/24 07:08 MCV 90.4 fL (80.0-100.0) 02/10/24 07:08 MCH 30.9 pg (25.0-34.0) 02/10/24 07:08 MCHC 34.2 g/dL (32.0-36.0) 02/10/24 07:08 RDW Std Deviation 41.3 fL (36.4-46.3) 02/10/24 07:08 RDW Coeff of Janet 12.7 % (11.5-14.5) 02/10/24 07:08 Plt Count 312 K/uL (130-400) 02/10/24 07:08 MPV 9.2 fL (9.4-12.4) L 02/10/24 07:08 Immature Gran % (Auto) 0.7 % 02/03/24 11:21 Neut % (Auto) 72.6 % 02/03/24 11:21 Lymph % (Auto) 17.1 % 02/03/24 11:21 Pike % (Auto) 7.9 % 02/03/24 11:21 Eos % (Auto) 1.2 % 02/03/24 11:21 Baso % (Auto) 0.5 % 02/03/24 11:21 Neut # (Auto) 6.27 K/uL (1.40-6.50) 02/03/24 11:21 Lymph # (Auto) 1.47 K/uL (1.20-3.40) 02/03/24 11:21 Pike # (Auto) 0.68 K/uL (0.11-0.59) H 02/03/24 11:21 Eos # (Auto) 0.10 K/uL (0.00-0.50) 02/03/24 11:21 Baso # (Auto) 0.04 K/uL (0.00-0.20) 02/03/24 11:21 Immature Gran # (Auto) 0.06 K/uL (0.01-0.20) 02/03/24 11:21 PT 11.1 Seconds (9.0-12.0) 02/03/24 11:21 INR 1.0 (0.9-1.1) 02/03/24 11:21 APTT 24 Seconds (21-31) 02/03/24 11:21 PTT Ratio 0.9 02/03/24 11:21 Sodium 138 mmol/L (136-145) 02/10/24 07:08 Potassium 3.6 mmol/L (3.5-5.1) 02/10/24 07:08 Chloride 104 mmol/L (98-107) 02/10/24 07:08 Carbon Dioxide 26 mmol/L (21-32) 02/10/24 07:08 Anion Gap 8 (3-11) 02/10/24 07:08 BUN 13 mg/dl (6-23) 02/10/24 07:08 Creatinine 0.48 mg/dl (0.6-1.2) L 02/10/24 07:08 Est Cr Clr Drug Dosing 100.2 ml/min 02/10/24 07:08 Est GFR ( Amer) 112.8 ml/min 02/10/24 07:08 Est GFR (Non-Af Amer) 97.3 ml/min 02/10/24 07:08 BUN/Creatinine Ratio 27.1 (10-20) H 02/10/24 07:08 Glucose 178 mg/dl (70-99(Fasting)) H 02/10/24 07:08 POC Glucose 170 mg/dl (70-99) H 02/10/24 08:08 Estimat Average Glucose 171 mg/dl 02/04/24 07:13 Hemoglobin A1c 7.6 % (4.5-5.6) H 02/04/24 07:13 Calcium 9.1 mg/dl (8.6-10.3) 02/10/24 07:08 Phosphorus 4.0 mg/dl (2.5-4.9) 02/10/24 07:08 Magnesium 1.7 mg/dl (1.7-2.4) 02/10/24 07:08 Total Bilirubin 0.8 mg/dl (0.2-1.0) 02/03/24 11:21 AST 16 U/L (13-39) 02/03/24 11:21 ALT 16 U/L (7-52) 02/03/24 11:21 Alkaline Phosphatase 73 U/L (34-104) 02/03/24 11:21 Troponin I High Sens 5.4 pg/ml (0-14) 02/03/24 13:58 Total Protein 6.3 gm/dl (6.0-8.3) 02/03/24 11:21 Albumin 4.1 gm/dl (3.4-5.0) 02/03/24 11:21 Globulin 2.2 gm/dl (2.5-4.0) L 02/03/24 11:21 Albumin/Globulin Ratio 1.9 (0.9-2) 02/03/24 11:21 Lipase 22 U/L (11-82) 02/03/24 11:21 Vitamin B12 1169 pg/ml (180-914) H 02/03/24 13:58 25-OH Vitamin D Total 22.3 ng/ml (30-100) L 02/04/24 07:13 Folate > 22.30 ng/ml (>5.38) 02/03/24 13:58 TSH 0.322 uIu/ml (0.300-4.500) 02/03/24 13:58 Blood Type O Positive 02/09/24 06:35 Antibody Screen NEGATIVE 02/09/24 06:35 Impressions Chest X-Ray 02/03/24 10:54 XR chest 1V portable CLINICAL HISTORY: Chest pain, nonspecific COMPARISON STUDY: Chest radiograph February 05, 2012. FINDINGS: There is an acute displaced comminuted left humeral neck and head fracture. This is depicted on the left shoulder radiographs. No pneumothorax or pleural effusion is present. Patient is rotated. There is mild cardiomegaly without evidence for pulmonary edema. Mild left basilar opacity favors atelectasis. There is no consolidation to suggest pneumonia. IMPRESSION: 1. Acute comminuted displaced left humeral neck and head fracture. 2. No acute cardiopulmonary findings. ACT 112: Negative or not required by law. Electronically signed by: Musa Dai M.D. 02/03/2024 11:[address] 02/03/24 12:35 CT SCAN OF THE CERVICAL SPINE CLINICAL HISTORY: Fall. COMPARISON STUDY: No priors. TECHNIQUE: CT scan of the cervical spine is performed from the skull base to the upper thoracic spine. Images are reviewed in the axial, sagittal, and coronal planes. IV contrast was not administered for this examination. A dose lowering technique was utilized adhering to the principles of ALARA. FINDINGS: Skeletal structures: The skeletal structures are osteopenic. There is no evidence of fracture or subluxation involving the cervical spine. Vertebral body height and alignment are maintained. There is straightening of the cervical lordosis. Anterior osteophytes are seen throughout. The odontoid process and lateral masses are intact. The atlantoaxial articulation is preserved noting productive degenerative change. The spinous processes appear intact. Apparent dextrocurvature at the cervicothoracic junction may be positional. There is mild multilevel facet arthropathy. Intervertebral discs: There is only minimal degenerative disc space narrowing. Central canal: Posterior disc osteophyte complexes at C4-C5 and C5-C6 may contribute to mild acquired compromise of the central canal Soft tissues: The prevertebral and paraspinous soft tissues are within normal limits. The thyroid gland is enlarged and heterogeneous, and contains coarse calcifications. This is typical for goiter. There is atherosclerotic calcification of the carotid bulbs. Calvarium: The visualized calvarium at the skull base appears intact. Brain parenchyma: Partially visualized brain parenchyma at the skull base is within normal limits. Sinuses and mastoids: The visualized paranasal sinuses are clear. There is a right mastoid effusion. The left mastoid air cells are well pneumatized. Cerumen is noted in the external auditory canals. Lung apices: Clear as visualized. IMPRESSION: 1. There is no evidence of fracture or subluxation involving the cervical spine. 2. Osteopenia and spondylotic change as above. ACT 112: Negative or not required by law. Electronically signed by: Segun Bates M.D. 02/03/2024 1:[address] 02/03/24 12:[address] DOSE: HISTORY: fall TECHNIQUE: Multiaxial CT images of the maxillofacial region were performed and reformatted in the coronal plane without the use of contrast. A dose lowering technique was utilized adhering to the principles of ALARA. COMPARISON: None. FINDINGS: The visualized cervical spine, skull base, pterygoid plates, nasal bones, lamina papyracea, orbital floors, mandible, and zygomatic arches are intact. No fractures. The orbits are unremarkable. Scattered dermal calcifications within the forehead. IMPRESSION: No fractures within the maxillofacial region. ACT 112: Negative or not required by law. Electronically signed by: Rakesh Rivers M.D. 02/03/2024 1:[address] 02/03/24 12:35 CT OF THE HEAD WITHOUT CONTRAST CLINICAL HISTORY: Fall. COMPARISON STUDY: No previous studies for comparison. TECHNIQUE: Helical axial images of the head were obtained without IV contrast. Automated exposure control was utilized for the study. A dose lowering technique was utilized adhering to the principles of ALARA. FINDINGS: No acute intracranial hemorrhage, midline shift or mass effect is present. The ventricular system is unremarkable. The basal cisterns are patent. No extra-axial collections are present. There are no findings to suggest acute dural sinus thrombosis or acute territorial infarct. No significant calvarial abnormalities are present. Visualized portions of the sinuses and mastoid air cells are clear. IMPRESSION: 1. No acute intracranial findings. 2. No calvarial fractures. ACT 112: Negative or not required by law. Electronically signed by: Musa Dai M.D. 02/03/2024 1:45 PM Shoulder X-Ray 02/05/24 15:20 XR shoulder LT min 2V routine HISTORY: 73 years-old Female Grashey AP and transcapular lateral; acute left shoulder pain COMPARISON: 02/02/2021 TECHNIQUE: 2 views of the left shoulder FINDINGS: Redemonstration of a comminuted acute fracture of the left humeral head and neck with numerous displaced fragments. There is medial displacement of the humeral shaft by at least one shaft length as well as overriding of the fragments. Overlying soft tissue edema is noted. No additional fracture is seen. Degenerative change is noted at the glenohumeral and acromioclavicular joints. The imaged left lung parenchyma appears clear. IMPRESSION: Unchanged alignment of the acute, comminuted, impacted and displaced proximal humeral fracture. ACT 112: Negative or not required by law. The above report was generated using voice recognition software. It may contain grammatical, syntax or spelling errors. Electronically signed by: Mann Hoskins M.D. 02/05/2024 4:37 PM Knee X-Ray 02/08/24 07:00 XR knee RT 3V HISTORY: 73 years-old Female knee pain not improvng chronic right knee pain COMPARISON: 02/03/2024 TECHNIQUE: 3 views of the right knee FINDINGS: Severe tricompartmental osteoarthritis redemonstrated. There is decreased size of the joint effusion which is now small. Arterial calcifications. There is an ill-defined vertically oriented lucency involving the posterior tibia on the lateral view. IMPRESSION: 1. Ill-defined cortical lucency of the posterior tibia seen on the lateral view only is suggestive of an acute or subacute nondisplaced fracture. 2. Severe tricompartmental osteoarthritis. 3. Small joint effusion has decreased in size from prior. ACT 112: Negative or not required by law. The above report was generated using voice recognition software. It may contain grammatical, syntax or spelling errors. Electronically signed by: Mann Hoskins M.D. 02/08/2024 7:[address] 02/08/24 08:51 CT knee RT wo con HISTORY: 73 years-old Female pain Acute pain of the right knee with subtle acute proximal tibial fracture described on comparison radiographs. COMPARISON: Radiographs of the right knee same day. TECHNIQUE: Multiple axial CT images of the right knee were obtained without IV contrast. Additional 3-D rendered images were generated from a separate workstation. A dose lowering technique was used consistent with the principals of FRANCISCO. FINDINGS: Severe tricompartmental osteoarthritis with chondrocalcinosis redemonstrated. Os teoarthritis is most pronounced within the medial and patellofemoral joints. Demineralized appearance of the bones. There is an acute nondisplaced vertically oriented fracture is confirmed within the posterior aspect of the medial tibial plateau, which demonstrates a approximately 4 mm of articular depression. Fracture extends into the intercondylar posterior tibia without significant displacement. The lateral tibial plateau and distal femur appear intact. Large osteophyte resembling a pedunculated osteochondroma involves the posterior aspect of the lateral femoral condyle measuring up to 3.4 cm in craniocaudal dimension. Small joint effusion. Articular calcifications. Subcutaneous and deep tissue edema of the knee. No large intra-articular loose body is identified. IMPRESSION: 1. Confirmation of the acute nondisplaced proximal tibial fracture, which involves the posterior aspect of the medial tibial plateau with extension into the posterior intercondylar tibia. There is a few millimeters of associated articular depression. 2. Small joint effusion. 3. Severe tricompartmental osteoarthritis with chondrocalcinosis. ACT 112: Negative or not required by law. The above report was generated using voice recognition software. It may contain grammatical, syntax or spelling errors. Dictated: 02/08/2024 10:26 AM Transcribed: 02/08/2024 10:38 AM Gary [id number] [email or web address] Electronically signed by: Mann Hoskins M.D. 02/08/2024 10:[address] 02/08/24 09:28 CT shoulder LT wo con HISTORY: 73 years-old Female pain Acute left shoulder pain with acute proximal left humeral fracture. COMPARISON: Radiographs 02/05/2024. TECHNIQUE: Multiple axial CT images of the left shoulder were obtained without IV contrast. Additional 3-D rendered images were generated from a separate workstation. A dose lowering technique was used consistent with the principals of FRANCISCO. FINDINGS: Study is degraded by respiratory motion. The imaged left lung appears clear. Cardiomegaly with coronary arterial calcifications. There is a moderate-sized glenohumeral hemarthroses with deep tissue edema surrounding the left shoulder. No lymphadenopathy. Tendons and ligaments are not well evaluated by CT technique. There is at least mild atrophy of the supraspinatus musculature. Demineralized appearance of the bones. There is moderate AC joint with at least mild glenohumeral osteoarthritis. Subcortical cysts of the greater tuberosity. Redemonstration of a comminuted acute fracture of the left humeral head and neck with numerous displaced fragments. Fracture lines involve the greater tuberosity and surgical neck with preserved articular humeral head and lesser tuberosity. There is impaction with 2.2 cm medial displacement. Tiny subcentimeter intra- articular fracture fragments are noted along with a 1.2 cm fracture fragment displaced anteriorly within the adjacent deltoid muscle on image 36 series 5. IMPRESSION: 1. Acute, comminuted and displaced impacted proximal left humeral fracture is redemonstrated with fractures involving the greater tuberosity and surgical neck. 2. Subcentimeter intra-articular fracture fragments are noted in addition to a 1.2 cm fracture fragment displaced anteriorly within the adjacent deltoid muscle. 3. Moderate-sized hemarthrosis. ACT 112: Negative or not required by law. The above report was generated using voice recognition software. It may contain grammatical, syntax or spelling errors. Dictated: 02/08/2024 10:18 AM Transcribed: 02/08/2024 10:34 AM Gary [id number] [email or web address] Electronically signed by: Mann Hoskins M.D. 02/08/2024 10:54 AM Humerus X-Ray 02/09/24 07:00 FL humerus LT 2V CLINICAL HISTORY: Left proximal humerus nailing COMPARISON STUDY: Left shoulder radiographs 02/05/2024 FLUOROSCOPY TIME: 4 minutes and 28.3 seconds FLUOROSCOPY IMAGES: 5 EXPOSURE DOSE: 36.767 mGy FINDINGS: Status post placement of an intramedullary dennis with 6 fixation cannulated screws fixating an acute proximal humeral fracture which now demonstrates near-anatomic alignment. No dislocation. Glenohumeral and AC joint osteoarthritis redemonstrated. IMPRESSION: Fluoroscopic assistance as above. ACT 112: Negative or not required by law. Electronically signed by: Mann Hoskins M.D. 02/10/2024 6:54 AM (1) Fracture, humerus Encounter type: initial encounter Fracture alignment: displaced Fracture type: closed Humerus Location: surgical neck Laterality: left
--- NOTE | 2024-02-10 14:42 | Pharmacy Report ---
Pharmacy Glycemic Short Note 2 - Date of Service February 10, 2024 - Glycemic Short BSG Results (Last 24 hours): 02/09/24 02/10/24 02/10/24 19:47 02:05 07:08 Glucose 178 H POC Glucose 172 H 250 H 02/10/24 02/10/24 08:08 12:04 Glucose POC Glucose 170 H 292 H OUTPATIENT ANTIDIABETIC REGIMEN: * Metformin 1g PO BID * Prandin 1mg PO with breakfast and dinner * A1c 7.6% 02/04/24 ASSESSMENT: 02/09 * Patient received total of 57 units of insulin yesterday, of which 35 units were basal insulin * Fasting BSG 170 mg/dL - patient did receive steroids in OR last night. Received 8 units of correctional insulin overnight. * Anticipate steroid effects to wear off throughout the day today. Gave Lantus 25 units this AM - will add scale for basal at HS in case BSGs remain elevated 02/06 * 73 yo F, PMH DM II, HTN, dyslipidemia, history of seizure disorder last seizure in 1962, GERD presented to ER complaint of fall with subsequent left shoulder pain. Contusion of right knee and humerus fracture. No plan for surgery at this time. s/p knee cortisone injection and aspiration on 02/04. * Patient hyperglycemic and pharmacy consulted today, pt received 51 units of insulin yesterday, 10 units basal, fasting 252mg/dl today, will increase basal and tighten CF/CR at this time and titrate to goal blood sugar. PLAN FOR INPATIENT GLYCEMIC CONTROL: * Hold outpatient oral diabetes medications * Basal insulin * Lantus 25 units Qam * Lantus 0-10 units HS * Bolus insulin * NovoLog per scale ACHS or Q6hrs while NPO * Goal Range: Low 110 mg/dL - High 140 mg/dL * Correction Factor: 12 mg/dL/unit * Nutritional / Prandial insulin per carb ratio of 1 unit per 5 grams CHO consumed
--- NOTE | 2024-02-10 16:54 | Hospitalist Progress Note ---
Date of Service February 10, 2024 Assessment & Plan (1) Fall: (2) Fracture, humerus: Plan: Patient is 73 year old female with PMH DM II, HTN, dyslipidemia, history of seizure disorder last seizure in 1962, GERD presented to ER complaint of fall with subsequent left shoulder pain. Pt reports ongoing stressor at home and as a result poor appetite lately. She didn't feel palpitation/dizziness/chest pain/warmth/nausea/vomiting surrounding fall. She felt weak and was aware she is about to fall and fell on her left side (tried to grab table nearby but couldn't). In ER vitals stable, glucose 300, other electrolytes unremarkable. Troponin negative x 2. CT Head: no acute intracranial abnormality CT C-spine: no acute fracture CXR: no acute infiltrate Left shoulder xray: Comminuted and displaced left humeral head/neck fracture CT left shoulder: 1. Acute, comminuted and displaced impacted proximal left humeral fracture is redemonstrated with fractures involving the greater tuberosity and surgical neck. 2. Subcentimeter intra-articular fracture fragments are noted in addition to a 1.2 cm fracture fragment displaced anteriorly within the adjacent deltoid muscle. 3. Moderate-sized hemarthrosis. Echo with EF of greater than 70%, LV wall motion normal. Pain management. Ortho evaluated, status post close reduction and left humeral nail 02/09/2024. Monitor H&H, lab in am Vitamin D level low, started vitamin D supplementation 02/03. Recommend outpatient DEXA scan. Pt was made aware. Right knee osteoarthritis/closed fracture of proximal end of right tibia: severe osteoarthritis right knee (s/p corticosteroid knee injection), pt reports problem ambulating. Repeat knee x-ray concerning for fracture, CT of the knee was done with confirmation of acute nondisplaced proximal tibial fracture. Pain management, bowel regimen. Orthopedic on board, nonweightbearing RLE. Will follow recommendation. Follow-up with orthopedics as an outpatient. Eliquis for DVT prophylaxis due to immobility. (3) Hyperglycemia: (4) Diabetes mellitus, type II: Plan: Random glucose 300 in ER A1c: 7.9 on 11/17/23; a1c 7.6 this admission Hold home metformin, repaglinide Novolog sliding scale per protocol Glycemic pharmacy consulted. (5) Hypertension: Plan: Continue amlodipine, HCTZ, lisinopril with holding parameters. As needed blood pressure medications on board. (6) Hypercholesterolemia: Plan: Continue atorvastatin (7) History of seizure disorder: Plan: No history seizure since 1962 DVT Prophylaxis SCDs Full Code Follows with Dr Swift for routine care PT/OT, likely will need rehab. Admission and Anticipated Discharge Date Admission Date: February 03, 2024 Subjective Patient was seen and examined at bedside. Patient was lying in bed, on room air, NAD, resting comfortably. Patient reports right knee pain under control. Patient is aware of nonweightbearing on RLE. Patient is a status post left shoulder repair, reports pain under control. Reports eating okay and moving bowels okay. Physical Exam Physical Exam: GENERAL APPEARANCE: AxOx4, generally well-appearing female, no acute distress. HEENT: NC, AT. MMM. EOMI, clear conjunctiva, oropharynx clear. NECK: Supple without lymphadenopathy. No stiffness or restricted ROM. HEART: Normal rate and regular rhythm, normal S1/S1, no m/r/g LUNGS: CTAB, moving air well. No crackles or wheezes are heard. ABDOMEN: Soft, nontender, nondistended with good bowel sounds heard. BACK: No CVAT, no obvious deformity. EXTREMITIES: Without cyanosis, clubbing or edema. LUE dressing c/d/i, in sling. NEUROLOGICAL: Grossly nonfocal. Alert and oriented, moving all 4 extremities. CN not formally tested but appear grossly intact. Skin: Warm and dry without any rash. Results & Data Results & Data Vital Signs (Past 12 Hours) Vital Signs Temp Pulse Pulse Resp BP Pulse Ox O2 Del Method 02/10/24 16:44 81 02/10/24 15:56 36.9 C 76 20 114/73 96 Room Air 02/10/24 11:41 36.9 C 84 20 128/77 95 Room Air 02/10/24 07:56 36.5 C 70 20 108/64 94 Room Air 02/10/24 07:15 75 (1) Fall Encounter type: initial encounter Qualified Code(s): W19.XXXA - Unspecified fall, initial encounter (2) Fracture, humerus Encounter type: initial encounter Fracture alignment: displaced Fracture type: closed Humerus Location: surgical neck Laterality: left
[2024-02-10] MEDS: LANTUS PER UNIT CHARGE SQ SCH (20:39)
[2024-02-11 08:03] LABS: Hematocrit (blood only) 28.3 % (37.0-47.0); Hemoglobin 9.5 g/dl (12.0-16.0); Mean Corpuscular Hemoglobin 31.4 pg (25.0-34.0); Mean Corpuscular Hgb Conc 33.6 g/dL (32.0-36.0); Mean Corpuscular Volume 93.4 fL (80.0-100.0); Mean Platelet Volume 9.4 fL (9.4-12.4); Platelet Count 289 K/uL (130-400); RDW Coefficient of Variation 13.2 % (11.5-14.5); RDW Standard Deviation 43.8 fL (36.4-46.3); Red Blood Count 3.03 M/uL (4.20-5.40); White Blood Count 11.66 K/ul (4.8-10.8)
[2024-02-11 08:25] LABS: BUN Creatinine Ratio 33.8 (10-20); Calcium 9.1 mg/dl (8.6-10.3); Creatinine Clr Calc Pharmacy 74.2 ml/min; Est GFR (African American) 102.1 ml/min; Est GFR (Non-African American) 88.1 ml/min; Magnesium 1.9 mg/dl (1.7-2.4); Phosphorus 4.1 mg/dl (2.5-4.9); Potassium 3.9 mmol/L (3.5-5.1)
[2024-02-11] MEDS: INSULIN ASPART PER UNIT CHARGE SC SCH ×2 (09:22→13:11)
--- NOTE | 2024-02-11 11:32 | Orthopedic Progress Note ---
Date of Service February 11, 2024 Assessment & Plan (1) Fracture, humerus: Plan: NWB LUE, sling for comfort, She can do active movement of hand wrist and elbow but movement of the shoulder will be passive for at least 4 to 6 weeks postop. NWB RLE, ROM as tolerated, can do leg lifts Recommend eliquis for DVT phx Pain control per primary Likely will need placement due to mobility issues, may require wheelchair Ice right knee and left shoulder PRN Encouraged elevating hand above her heart to help with swelling in her distal LUE Dressing changed today, may reinforce as needed Follow up with [facility] in two weeks (2) Closed fracture of proximal end of right tibia: Admission and Anticipated Discharge Date Admission Date: February 03, 2024 Subjective Pt seen and examined bedside. Reports she is doing well. Pain managed. Swelling in LUE has increased. No pain in knee. She is not putting weight on it. Denied F/C,CP,SOB. Denies N/t in LUE Physical Exam Physical Exam: LUE: Sling in place. Patient as significant amount of swelling and bruising. She can wiggle all of her fingers and move her wrist. She can make a fist. Sensation in tact distally, 2+ distal radial pulse is present. She can move her elbow. Dressing taken down. Incisions clean, dry, well approximated. Redressed with xeroform, gauze, tegaderm. Sling was adjusted to hand is more elevated. Ice was re-applied RLE: Mild swelling in knee noted. No TTP over medial or lateral aspect. She can only do about 20 degrees of flexion but she says that is normal for her. She has full ROM toes and ankle. Sensation in tact distally and good pulses present. Results & Data Vital Signs (Past 12 Hours) Vital Signs Temp Pulse Pulse Resp BP Pulse Ox O2 Del Method 02/11/24 07:54 36.9 C 82 18 111/72 98 Room Air 02/11/24 07:46 72 02/11/24 02:57 36.4 C L 71 18 111/72 93 Room Air 02/10/24 23:29 36.8 C 77 18 104/59 L 94 Room Air Laboratory Results 02/11/24 02/11/24 02/10/24 Range/Units 08:05 06:53 20:29 WBC 11.66 H (4.8-10.8) K/ul RBC 3.03 L (4.20-5.40) M/uL Hgb 9.5 L (12.0-16.0) g/dl Hct 28.3 L (37.0-47.0) % MCV 93.4 (80.0-100.0) fL MCH 31.4 (25.0-34.0) pg MCHC 33.6 (32.0-36.0) g/dL RDW Std Deviation 43.8 (36.4-46.3) fL RDW Coeff of Janet 13.2 (11.5-14.5) % Plt Count 289 (130-400) K/uL MPV 9.4 (9.4-12.4) fL Sodium 135 L (136-145) mmol/L Potassium 3.9 (3.5-5.1) mmol/L Chloride 102 (98-107) mmol/L Carbon Dioxide 27 (21-32) mmol/L Anion Gap 6 (3-11) BUN 22 (6-23) mg/dl Creatinine 0.65 (0.6-1.2) mg/dl Est Cr Clr Drug Dosing 74.2 ml/min Est GFR ( Amer) 102.1 ml/min Est GFR (Non-Af Amer) 88.1 ml/min BUN/Creatinine Ratio 33.8 H (10-20) Glucose 151 H (70-99(Fasting)) mg/dl POC Glucose 159 H 76 (70-99) mg/dl Calcium 9.1 (8.6-10.3) mg/dl Phosphorus 4.1 (2.5-4.9) mg/dl Magnesium 1.9 (1.7-2.4) mg/dl 02/10/24 02/10/24 Range/Units 16:56 12:04 WBC (4.8-10.8) K/ul RBC (4.20-5.40) M/uL Hgb (12.0-16.0) g/dl Hct (37.0-47.0) % MCV (80.0-100.0) fL MCH (25.0-34.0) pg MCHC (32.0-36.0) g/dL RDW Std Deviation (36.4-46.3) fL RDW Coeff of Janet (11.5-14.5) % Plt Count (130-400) K/uL MPV (9.4-12.4) fL Sodium (136-145) mmol/L Potassium (3.5-5.1) mmol/L Chloride (98-107) mmol/L Carbon Dioxide (21-32) mmol/L Anion Gap (3-11) BUN (6-23) mg/dl Creatinine (0.6-1.2) mg/dl Est Cr Clr Drug Dosing ml/min Est GFR ( Amer) ml/min Est GFR (Non-Af Amer) ml/min BUN/Creatinine Ratio (10-20) Glucose (70-99(Fasting)) mg/dl POC Glucose 227 H 292 H (70-99) mg/dl Calcium (8.6-10.3) mg/dl Phosphorus (2.5-4.9) mg/dl Magnesium (1.7-2.4) mg/dl (1) Fracture, humerus Encounter type: initial encounter Fracture alignment: displaced Fracture type: closed Humerus Location: surgical neck Laterality: left
[2024-02-11] MEDS: MAGNESIUM SULFATE / D5W 1 GM/100 ML BAG IV ONE (14:02)
[2024-02-11] MEDS: POTASSIUM CHLORIDE CRTAB 20 MEQ TABCR PO STA (14:02)
--- NOTE | 2024-02-11 14:11 | Pharmacy Report ---
Pharmacy Glycemic Short Note 2 - Date of Service February 11, 2024 - Glycemic Short BSG Results (Last 24 hours): 02/10/24 02/10/24 02/11/24 16:56 20:29 06:53 Glucose 151 H POC Glucose 227 H 76 02/11/24 02/11/24 08:05 12:11 Glucose POC Glucose 159 H 266 H OUTPATIENT ANTIDIABETIC REGIMEN: * Metformin 1g PO BID * Prandin 1mg PO with breakfast and dinner * A1c 7.6% 02/04/24 ASSESSMENT: 02/10 * Miladys received 76 units of insulin yesterday - increased needs likely due to dexamethasone dose given in OR on 02/09 PM * 25 units basal + 51 units bolus * BSGs: 178, 292, 227, 76 mg/dL * Fasting BSG trending downward. Suspect patient needs between 25-30 units of basal daily (while not on steroids). * Consistent elevation with lunch BSG. Will tighten carb coverage with breakfast . 02/09 * Patient received total of 57 units of insulin yesterday, of which 35 units were basal insulin * Fasting BSG 170 mg/dL - patient did receive steroids in OR last night. Received 8 units of correctional insulin overnight. * Anticipate steroid effects to wear off throughout the day today. Gave Lantus 25 units this AM - will add scale for basal at HS in case BSGs remain elevated 02/06 * 73 yo F, PMH DM II, HTN, dyslipidemia, history of seizure disorder last seizure in 1962, GERD presented to ER complaint of fall with subsequent left shoulder pain. Contusion of right knee and humerus fracture. No plan for surgery at this time. s/p knee cortisone injection and aspiration on 02/04. * Patient hyperglycemic and pharmacy consulted today, pt received 51 units of i nsulin yesterday, 10 units basal, fasting 252mg/dl today, will increase basal and tighten CF/CR at this time and titrate to goal blood sugar. PLAN FOR INPATIENT GLYCEMIC CONTROL: * Hold outpatient oral diabetes medications * Basal insulin * Lantus 25-30 units SQ qam * Bolus insulin * NovoLog per scale ACHS or Q6hrs while NPO * Goal Range: Low 110 mg/dL - High 140 mg/dL Breakfast * Correction Factor: 15 mg/dL/unit * Nutritional / Prandial insulin per carb ratio of 1 unit per 3 grams CHO consumed Lunch/dinner/HS * Correction Factor: 15 mg/dL/unit * Nutritional / Prandial insulin per carb ratio of 1 unit per 5 grams CHO consumed
--- NOTE | 2024-02-11 15:31 | Hospitalist Progress Note ---
Date of Service February 11, 2024 Assessment & Plan (1) Fall: (2) Fracture, humerus: Plan: Patient is 73 year old female with PMH DM II, HTN, dyslipidemia, history of seizure disorder last seizure in 1962, GERD presented to ER complaint of fall with subsequent left shoulder pain. Pt reports ongoing stressor at home and as a result poor appetite lately. She didn't feel palpitation/dizziness/chest pain/warmth/nausea/vomiting surrounding fall. She felt weak and was aware she is about to fall and fell on her left side (tried to grab table nearby but couldn't). In ER vitals stable, glucose 300, other electrolytes unremarkable. Troponin negative x 2. CT Head: no acute intracranial abnormality CT C-spine: no acute fracture CXR: no acute infiltrate Left shoulder xray: Comminuted and displaced left humeral head/neck fracture CT left shoulder: 1. Acute, comminuted and displaced impacted proximal left humeral fracture is redemonstrated with fractures involving the greater tuberosity and surgical neck. 2. Subcentimeter intra-articular fracture fragments are noted in addition to a 1.2 cm fracture fragment displaced anteriorly within the adjacent deltoid muscle. 3. Moderate-sized hemarthrosis. Echo with EF of greater than 70%, LV wall motion normal. Pain management. Ortho evaluated, status post close reduction and left humeral nail 02/09/2024. Monitor H&H, lab in am Vitamin D level low, started vitamin D supplementation 02/03. Recommend outpatient DEXA scan. Pt was made aware. pt agreeable to rehab. Right knee osteoarthritis/closed fracture of proximal end of right tibia: severe osteoarthritis right knee (s/p corticosteroid knee injection), pt reports problem ambulating. Repeat knee x-ray concerning for fracture, CT of the knee was done with confirmation of acute nondisplaced proximal tibial fracture. Pain management, bowel regimen. Orthopedic on board, nonweightbearing RLE. appreciate recommendation. Follow-up with orthopedics as an outpatient. Eliquis for DVT prophylaxis due to immobility. (3) Hyperglycemia: (4) Diabetes mellitus, type II: Plan: Random glucose 300 in ER A1c: 7.9 on 11/17/23; a1c 7.6 this admission Hold home metformin, repaglinide Novolog sliding scale per protocol Glycemic pharmacy consulted. (5) Hypertension: Plan: Continue amlodipine, HCTZ, lisinopril with holding parameters. As needed blood pressure medications on board. (6) Hypercholesterolemia: Plan: Continue atorvastatin (7) History of seizure disorder: Plan: No history seizure since 1962 DVT Prophylaxis SCDs Full Code Follows with Dr Swift for routine care PT/OT, CM to assist w/ dc plan. stable for dc to rehab. Admission and Anticipated Discharge Date Admission Date: February 03, 2024 Subjective Patient was seen and examined at bedside. Patient was lying in bed, on room air, NAD, resting comfortably. Patient reports right knee pain under control. Patient is aware of nonwe ightbearing on RLE. Patient is a status post left shoulder repair, reports pain under control. Reports eating okay and moving bowels okay. Agreeable to rehab. Physical Exam Physical Exam: GENERAL APPEARANCE: AxOx4, generally well-appearing female, no acute distress. HEENT: NC, AT. MMM. EOMI, clear conjunctiva, oropharynx clear. NECK: Supple without lymphadenopathy. No stiffness or restricted ROM. HEART: Normal rate and regular rhythm, normal S1/S1, no m/r/g LUNGS: CTAB, moving air well. No crackles or wheezes are heard. ABDOMEN: Soft, nontender, nondistended with good bowel sounds heard. BACK: No CVAT, no obvious deformity. EXTREMITIES: Without cyanosis, clubbing or edema. LUE dressing c/d/i, in sling. NEUROLOGICAL: Grossly nonfocal. Alert and oriented, moving all 4 extremities. CN not formally tested but appear grossly intact. Skin: Warm and dry without any rash. Results & Data Results & Data Vital Signs (Past 12 Hours) Vital Signs Temp Pulse Pulse Resp BP Pulse Ox O2 Del Method 02/11/24 11:42 37.1 C 75 18 112/69 96 Room Air 02/11/24 07:54 36.9 C 82 18 111/72 98 Room Air 02/11/24 07:46 72 (1) Fall Encounter type: initial encounter Qualified Code(s): W19.XXXA - Unspecified fall, initial encounter (2) Fracture, humerus Encounter type: initial encounter Fracture alignment: displaced Fracture type: closed Humerus Location: surgical neck Laterality: left
--- NOTE | 2024-02-11 16:04 | Electrocardiogram Report ---
Test Reason : Blood Pressure : / mmHG Vent. Rate : 084 BPM Atrial Rate : 084 BPM P-R Int : 144 ms QRS Dur : 092 ms QT Int : 370 ms P-R-T Axes : 032 -15 030 degrees QTc Int : 437 ms Normal sinus rhythm Normal ECG When compared with ECG of 04-FEB-2024 06:33, No significant change was found Confirmed by Wade Bowen ([id number]) on 02/11/2024 4:04:06 PM Referred By: REFERRED SELF Confirmed By:Wade Bowen
--- NOTE | 2024-02-11 16:39 | Operative Report ---
Post Operative Report Pre & Post Diagnosis Operation Date: 02/09/24 07:00 Pre-Op Diagnosis: Displaced left proximal humerus fracture Post-Op Diagnosis: Displaced left proximal humerus fracture I identified the patient and participated in the time-out.: Yes Procedure Operation Date: 02/09/24 07:00 Actual Procedures p Closed Reduction, Left Humeral Nail(Left) - Asher Padilla MD Surgeon Asher Padilla MD Senior Engineer Gauri Nelson no resident or fellow available Estimated Blood Loss 25 Findings Consistent with Post-Op Diagnosis Specimens None Anesthesia Type General Regional Complications none Disposition Accompanied Patient To Recovery: No Disposition: Recovery Room Indications Miladys is 73. She has a recent fall. She has a nondisplaced right tibial plateau fracture. She has a left proximal humerus fracture. Initially alignment looked possible for nonoperative management however follow-up x-rays show worsening of displacement. CT scan shows that this is a 2 part surgical neck fracture without significant involvement of the head. I recommended surgery and she agreed to proceed. Description of Procedure Informed consent. Patient identified. She identified the operative site as the left shoulder. I marked with my initials. Preop surgical timeout performed. Preop dose of IV antibiotics given. Taken to the OR positioned supine. Anesthetic administered. She was then positioned slightly lateral with bolsters under her back. Bony prominences were inspected and padded. The opposite arm was kept at her side slightly flexed and externally rotated. Her torso was secured to the table. The radiolucent Cliff table was utilized. Neck was held in neutral alignment. Prior to starting fluoroscopic images confirmed that we can get a Grashey AP and transscapular lateral. The arm was then prepped and draped in usual sterile fashion. A prescrubbing was performed. DVT prophylaxis with mechanical devices. Postop mechanical devices and Eliquis. Fluoroscopic guidance was utilized throughout the surgical procedure I localized the center center position of the head with a spinal needle and then made a anterior saber type incision from the top of the acromion distally about 5 cm almost in line with a standard direct deltopectoral approach in case 1 was needed. The incision was made about midway between the AC joint and the end of the acromion. The skin was incised and blunt dissection was downed to these deltoid fascial. Subcutaneous tissues were elevated in a circumferential fashion and then the raphae between the anterior and middle portion of the deltoid off of the anterolateral acromion was divided using cautery and I then elevated a flap of the deltoid off of the anterior acromion. The patient had a large anterior acromial spur which was resected about 5 mm with an oscillating saw. I then utilized the spinal needle to identify the starting position. The fracture could be reduced reasonably well with traction and neutral rotation and some posterior directed force to correct the deforming forces of the pectoralis. There was still some varus of the head and anterior displacement. I then fluoroscopically identified the fracture site anterolaterally and made a percutaneous incision there bluntly spreading down to the fracture site. I then introduced a Gaspar elevator into the fracture site. The a Gaspar was utilized to lift the head out of varus and pry the shaft back under the head. This improved both deformities somewhat but perhaps not completely. I then went ahead and took a guidepin and introduced it to the after mentioned location. I then split the rotator cuff with a knife and dissected down to the cartilage around this pin. I used a pin to slightly manipulate the head out of varus and also to get more posterior starting position. The pin was then introduced and adjusted times 1 to the appropriate location top center of the head and down the shaft of the humerus. This was then overreamed with the opening reamer and a ball-tipped guidewire was inserted. A 9 mm reamer was applied down to the isthmus. I then took the standard multi lock proximal nail and inserted under hand power. I have visualized the 2 mm jose going below the cartilage and also checked with the pin through the 0 hole. I stuck my finger through the split in the deltoid and palpated the biceps and rotated the dennis forward until the anterior screw was just behind the biceps. I then using percutaneous technique of incising the skin and bluntly dissecting down to the bone. The drill was advanced until hitting subchondral bone and then a screw 2 to 4 mm shorter was inserted and I could then palpate the lateral cortex to ensure that the screw was positioned appropriately. The same technique was used for the anterior and posterior screws. The fracture was well reduced and aligned. I then used the supplied guide to insert 2 distal interlocking screws through the shaft of the humerus and dennis using the same careful technique. I then inserted a kickstand screw using the provided guide and same technique. The kickstand screw again was shortened by 2 to 4 mm. I drilled only to the subchondral bone but not through for all of the screws. I double checked measurements with the depth gauge. The kickstand screw was advanced and found to be in good position. It was very tight and could not advance further I think because of the impingement of the head on the shaft. The director of strategic programs was removed and an end cap was applied. I fluoroscopically rotated the head and manipulated it to ensure that there is no crepitation and that all the screws were within the confines of the humeral head. Copious irrigation was performed. The percutaneous incisions were closed with 2-0 Vicryl for the dermal layer and either nylon or attila on the skin. The main incision on the anterior shoulder was closed. I first used 0 Ethibond to close the split in the rotator cuff. I then used the 0 Ethibond to repair the anterior deltoid to the acromion with sutures through the acromion x 3. I then repaired the deltoid split with running and interrupted 0 and #1 Vicryl and also oversewed the de ltoid 2 acromion repair. The skin was then closed with 2-0 Vicryl and attila. The arm was cleaned with wet and dry sponges and soft roll dressing was applied Xeroform 4 x 4's ABD including the armpit foam tape. Sling. She was then awakened from anesthesia without difficulty taken to recovery room in stable condition there were no specimens or complications counts were correct blood loss is estimated to be 50 cc. At the conclusion of the operation there was no one available to speak to. Plan is active movement of hand wrist and elbow and passive movement of the left shoulder. Postop IV antibiotics and anticoagulation with Eliquis given her immobility. The components inserted were the Synthes 8 mm titanium multi lock proximal humeral nail left 160 mm in length 4.5 mm proximal screws of 34 mm x 2 and 38 mm x 1. 2 distal interlocking screws 4.0 mm x 24 mm and 26 mm. A 4 oh calcar screw which is 44 mm in length and 0 endcap. I attest to the content of the Intraoperative Record and any orders documented therein. Any exceptions are noted below.
[2024-02-12 06:13] LABS: Hematocrit (blood only) 28.5 % (37.0-47.0); Hemoglobin 9.4 g/dl (12.0-16.0); Mean Corpuscular Hemoglobin 30.9 pg (25.0-34.0); Mean Corpuscular Volume 93.8 fL (80.0-100.0); Mean Platelet Volume 9.1 fL (9.4-12.4); Platelet Count 293 K/uL (130-400); RDW Coefficient of Variation 13.6 % (11.5-14.5); RDW Standard Deviation 45.4 fL (36.4-46.3); Red Blood Count 3.04 M/uL (4.20-5.40); White Blood Count 9.09 K/ul (4.8-10.8)
[2024-02-12 06:46] LABS: BUN Creatinine Ratio 39.3 (10-20); Calcium 8.6 mg/dl (8.6-10.3); Creatinine Clr Calc Pharmacy 87.2 ml/min; Est GFR (African American) 107.2 ml/min; Est GFR (Non-African American) 92.5 ml/min; Magnesium 1.7 mg/dl (1.7-2.4); Potassium 3.9 mmol/L (3.5-5.1)
--- NOTE | 2024-02-12 10:21 | Orthopedic Progress Note ---
Date of Service February 12, 2024 Assessment & Plan (1) Fracture, humerus: Plan: NWB LUE, sling for comfort this was adjusted for patient today, She was encouraged to do active movement of hand wrist and elbow but movement of the shoulder will be passive for at least 4 to 6 weeks postop. NWB RLE, ROM as tolerated, can do leg lifts Recommend eliquis for DVT phx Pain control per primary Likely will need placement due to mobility issues, may require wheelchair Ice right knee and left shoulder PRN Encouraged elevating hand above her heart to help with swelling in her distal LUE Continue to monitor dressing change if necessary reinforce if needed Follow up with [facility] in two weeks Patient verbalized understanding and is agreement plan. Present on Admission?: Yes (2) Closed fracture of proximal end of right tibia: Admission and Anticipated Discharge Date Admission Date: February 03, 2024 Subjective Patient is a 73-year-old [id number] female who is a known patient to Dr. Padilla. She is postop day #3 status post a left proximal humerus ORIF with humeral nailing on 02/08. She was seen sitting up on the edge of the bed today. Her she is in good spirits. She states she is doing okay. She states she has mild pain on occasion in the shoulder however she is not having much discomfort at this time. She states she has been maintaining the use of the sling and trying to move the fingers and wrist to help with the swelling. She feels the swelling has gone down. She denies any numbness or tingling in her left upper extremity. She also has the history of having a proximal tibia fracture of the right knee. She states she has been trying to maintain nonwei ghtbearing on the right lower extremity however this is difficult for her. She denies any pain in her knee. She denies any fevers or chills, chest pain, shortness of breath, dizziness, or calf pain. Review of Systems Review of Systems: Please refer to HPI Physical Exam Physical Exam: LUE: Sling in place and readjusted to be properly positioned across abdomen and elevated.. Patient has resolving ecchymosis over the left upper extremity. Incisions are covered and dry and intact. Negative for any soiling. She has moderate edema in the hand and digits. The upper extremity moderate edema.. She can flex and extend digits, wrist, elbow. She is able to make a fist. Her sensation is intact over the left upper extremity. Radial pulse is 2+. RLE: Skin is normal in color and temperature of her right knee. Mild swelling in knee noted. No tenderness appreciated with palpation to the medial and lateral joint lines. She remains limited with active range of motion of the knee to less than 20 degrees of flexion. She is able to actively dorsiflex and plantarflex without difficulty. Her calf is soft and nontender. Negative Homans' sign. Right lower extremity is neurovascularly intact. Results & Data Vital Signs (Past 12 Hours) Vital Signs Temp Pulse Resp BP Pulse Ox O2 Del Method 02/12/24 07:12 36.9 C 73 18 122/70 93 Room Air 02/12/24 02:26 36.8 C 74 20 108/69 94 Room Air 02/11/24 23:35 36.8 C 78 18 127/90 93 Room Air Laboratory Results 02/12/24 02/12/24 02/11/24 Range/Units 07:55 05:46 20:31 WBC 9.09 (4.8-10.8) K/ul RBC 3.04 L (4.20-5.40) M/uL Hgb 9.4 L (12.0-16.0) g/dl Hct 28.5 L (37.0-47.0) % MCV 93.8 (80.0-100.0) fL MCH 30.9 (25.0-34.0) pg MCHC 33.0 (32.0-36.0) g/dL RDW Std Deviation 45.4 (36.4-46.3) fL RDW Coeff of Janet 13.6 (11.5-14.5) % Plt Count 293 (130-400) K/uL MPV 9.1 L (9.4-12.4) fL Sodium 135 L (136-145) mmol/L Potassium 3.9 (3.5-5.1) mmol/L Chloride 103 (98-107) mmol/L Carbon Dioxide 26 (21-32) mmol/L Anion Gap 6 (3-11) BUN 22 (6-23) mg/dl Creatinine 0.56 L (0.6-1.2) mg/dl Est Cr Clr Drug Dosing 87.2 ml/min Est GFR ( Amer) 107.2 ml/min Est GFR (Non-Af Amer) 92.5 ml/min BUN/Creatinine Ratio 39.3 H (10-20) Glucose 183 H (70-99(Fasting)) mg/dl POC Glucose 212 H 215 H (70-99) mg/dl Calcium 8.6 (8.6-10.3) mg/dl Magnesium 1.7 (1.7-2.4) mg/dl 02/11/24 02/11/24 Range/Units 17:01 12:11 WBC (4.8-10.8) K/ul RBC (4.20-5.40) M/uL Hgb (12.0-16.0) g/dl Hct (37.0-47.0) % MCV (80.0-100.0) fL MCH (25.0-34.0) pg MCHC (32.0-36.0) g/dL RDW Std Deviation (36.4-46.3) fL RDW Coeff of Janet (11.5-14.5) % Plt Count (130-400) K/uL MPV (9.4-12.4) fL Sodium (136-145) mmol/L Potassium (3.5-5.1) mmol/L Chloride (98-107) mmol/L Carbon Dioxide (21-32) mmol/L Anion Gap (3-11) BUN (6-23) mg/dl Creatinine (0.6-1.2) mg/dl Est Cr Clr Drug Dosing ml/min Est GFR ( Amer) ml/min Est GFR (Non-Af Amer) ml/min BUN/Creatinine Ratio (10-20) Glucose (70-99(Fasting)) mg/dl POC Glucose 224 H 266 H (70-99) mg/dl Calcium (8.6-10.3) mg/dl Magnesium (1.7-2.4) mg/dl (1) Fracture, humerus Encounter type: initial encounter Fracture alignment: displaced Fracture type: closed Humerus Location: surgical neck Laterality: left
--- NOTE | 2024-02-12 13:57 | Pharmacy Report ---
Pharmacy Glycemic Short Note 2 - Date of Service February 12, 2024 - Glycemic Short BSG Results (Last 24 hours): 02/11/24 02/11/24 02/12/24 17:01 20:31 05:46 Glucose 183 H POC Glucose 224 H 215 H 02/12/24 02/12/24 02/12/24 07:55 11:46 11:47 Glucose POC Glucose 212 H 313 H* 344 H* OUTPATIENT ANTIDIABETIC REGIMEN: * Metformin 1g PO BID * Prandin 1mg PO with breakfast and dinner * A1c 7.6% 02/04/24 ASSESSMENT: 02/11: * Patient received total 70 units of insulin yesterday; 25 units basal + 45 units bolus * BSGs yesterday were elevated. Novolog parameters for breakfast were tightened and separate MAR entry for breakfast only made. * Nurse yesterday documented against the MAR entries for breakfast today and tomorrow which removed the flag for the AM doses today and tomorrow. This resulted in patient not getting AM dose of Novolog today. Pre-lunch BSG was therefore elevated at 344 mg/dl. * Nurse today said she will be taking care of patient tomorrow as well. Asked her to make sure patient receives the insulin AM dose tomorrow even though she will not be flagged for it and still document on the AM entry as "unscheduled admin." * Novolog parameters tightened with lunch but will loosen back again with dinner. * Will continue basal insulin the same. 02/10 * Miladys received 76 units of insulin yesterday - increased needs likely due to dexamethasone dose given in OR on 02/09 PM * 25 units basal + 51 units bolus * BSGs: 178, 292, 227, 76 mg/dL * Fasting BSG trending downward. Suspect patient needs between 25-30 units of basal daily (while not on steroids). * Consistent elevation with lunch BSG. Will tighten carb coverage with breakfast . 02/09 * Patient received total of 57 units of insulin yesterday, of which 35 units were basal insulin * Fasting BSG 170 mg/dL - patient did receive steroids in OR last night. Received 8 units of correctional insulin overnight. * Anticipate steroid effects to wear off throughout the day today. Gave Lantus 25 units this AM - will add scale for basal at HS in case BSGs remain elevated 02/06 * 73 yo F, PMH DM II, HTN, dyslipidemia, history of seizure disorder last seizur e in 1962, GERD presented to ER complaint of fall with subsequent left shoulder pain. Contusion of right knee and humerus fracture. No plan for surgery at this time. s/p knee cortisone injection and aspiration on 02/04. * Patient hyperglycemic and pharmacy consulted today, pt received 51 units of insulin yesterday, 10 units basal, fasting 252mg/dl today, will increase basal and tighten CF/CR at this time and titrate to goal blood sugar. PLAN FOR INPATIENT GLYCEMIC CONTROL: * Hold outpatient oral diabetes medications * Basal insulin * Lantus 25-30 units SQ qam * Bolus insulin * NovoLog per scale ACHS or Q6hrs while NPO * Goal Range: Low 110 mg/dL - High 140 mg/dL Breakfast * Correction Factor: 15 mg/dL/unit * Nutritional / Prandial insulin per carb ratio of 1 unit per 3 grams CHO consumed Lunch/dinner/HS * Correction Factor: 15 mg/dL/unit * Nutritional / Prandial insulin per carb ratio of 1 unit per 5 grams CHO consumed
[2024-02-12] MEDS ORDERED: oxyCODONE HCL IR 5 MG TAB (IMMEDIATE RELEASE) PO PRN (15:27)
--- NOTE | 2024-02-12 15:29 | Hospitalist Progress Note ---
Date of Service February 12, 2024 Assessment & Plan (1) Fall: (2) Fracture, humerus: Plan: Patient is 73 year old female with PMH DM II, HTN, dyslipidemia, history of seizure disorder last seizure in 1962, GERD presented to ER complaint of fall with subsequent left shoulder pain. Pt reports ongoing stressor at home and as a result poor appetite lately. She didn't feel palpitation/dizziness/chest pain/warmth/nausea/vomiting surrounding fall. She felt weak and was aware she is about to fall and fell on her left side (tried to grab table nearby but couldn't). In ER vitals stable, glucose 300, other electrolytes unremarkable. Troponin negative x 2. CT Head: no acute intracranial abnormality CT C-spine: no acute fracture CXR: no acute infiltrate Left shoulder xray: Comminuted and displaced left humeral head/neck fracture CT left shoulder: 1. Acute, comminuted and displaced impacted proximal left humeral fracture is redemonstrated with fractures involving the greater tuberosity and surgical neck. 2. Subcentimeter intra-articular fracture fragments are noted in addition to a 1.2 cm fracture fragment displaced anteriorly within the adjacent deltoid muscle. 3. Moderate-sized hemarthrosis. Echo with EF of greater than 70%, LV wall motion normal. Ortho evaluated, status post close reduction and left humeral nail 02/09/2024. Pain management. Monitor H&H, lab in am Vitamin D level low, started vitamin D supplementation 02/03. Recommend outpatient DEXA scan. pt agreeable to rehab. Closed fracture of proximal end of right tibia: severe osteoarthritis right knee (s/p corticosteroid knee injection) Repeat knee x-ray concerning for fracture, CT of the knee was done with confirmation of acute nondisplaced proximal tibial fracture. Pain management, bowel regimen. Orthopedic on board, nonweightbearing RLE. appreciate recommendation. Follow-up with orthopedics as an outpatient. Eliquis for DVT prophylaxis due to immobility. (3) Hyperglycemia: (4) Diabetes mellitus, type II: Plan: Random glucose 300 in ER A1c: 7.9 on 11/17/23; a1c 7.6 this admission Hold home metformin, repaglinide Novolog sliding scale per protocol Glycemic pharmacy consulted. (5) Hypertension: Plan: Continue amlodipine, HCTZ, lisinopril with holding parameters. As needed blood pressure medications on board. (6) Hypercholesterolemia: Plan: Continue atorvastatin (7) History of seizure disorder: Plan: No history seizure since 1962 DVT Prophylaxis agata Full Code Follows with Dr Swift for routine care Dispositionpeer to peer done for acute rehab; rejected. Will likely need subacute rehab placement. Updated case management. Time spent evaluating patient, direct bedside care, chart review, placing orders, interpretation of diagnostic studies, discussion with consultants, patie nt, and family members, as well as other required patient management activities is 50 minutes Please note the above document was generated using voice recognition software. It may contain grammatical, syntax or spelling errors. Any formal questions or concerns about the content, text or information contained within the body of this dictation should be directly addressed to the provider for clarification Admission and Anticipated Discharge Date Admission Date: February 03, 2024 Subjective Patient seen and examined at bedside. She is comfortably sitting up on the bed; not in distress. She denies fever, chills, chest pain or shortness of breath. No significant events overnight Review of Systems Review of Systems: All systems reviewed & are unremarkable except as noted in Subjective Physical Exam Physical Exam: GENERAL APPEARANCE: AxOx4, generally well-appearing female, no acute distress. HEENT: NC, AT. MMM. EOMI, clear conjunctiva, oropharynx clear. NECK: Supple without lymphadenopathy. No stiffness or restricted ROM. HEART: Normal rate and regular rhythm, normal S1/S1, no m/r/g LUNGS: CTAB, moving air well. No crackles or wheezes are heard. ABDOMEN: Soft, nontender, nondistended with good bowel sounds heard. BACK: No CVAT, no obvious deformity. EXTREMITIES: Without cyanosis, clubbing or edema. LUE dressing c/d/i, in sling. NEUROLOGICAL: Grossly nonfocal. Alert and oriented, moving all 4 extremities. CN not formally tested but appear grossly intact. Skin: Warm and dry without any rash. Results & Data Results & Data Vital Signs (Past 12 Hours) Vital Signs Temp Pulse Pulse Resp BP Pulse Ox O2 Del Method 02/12/24 11:37 36.8 C 78 18 130/75 96 Room Air 02/12/24 10:18 78 02/12/24 07:12 36.9 C 73 18 122/70 93 Room Air (1) Fall Encounter type: initial encounter Qualified Code(s): W19.XXXA - Unspecified fall, initial encounter (2) Fracture, humerus Encounter type: initial encounter Fracture alignment: displaced Fracture type: closed Humerus Location: surgical neck Laterality: left
[2024-02-13 06:42] LABS: Basophils # (auto) 0.03 K/uL (0.00-0.20); Basophils % (auto) 0.4 %; Eosinophils # (auto) 0.14 K/uL (0.00-0.50); Eosinophils % (auto) 1.8 %; Hematocrit (blood only) 29.1 % (37.0-47.0); Hemoglobin 9.7 g/dl (12.0-16.0); Immature Granulocytes # (auto) 0.09 K/uL (0.01-0.20); Immature Granulocytes % (auto) 1.1 %; Lymphocytes % (auto) 23.9 %; Mean Corpuscular Hemoglobin 31.5 pg (25.0-34.0); Mean Corpuscular Hgb Conc 33.3 g/dL (32.0-36.0); Mean Corpuscular Volume 94.5 fL (80.0-100.0); Mean Platelet Volume 9.1 fL (9.4-12.4); Monocytes # (auto) 0.74 K/uL (0.11-0.59); Monocytes % (auto) 9.3 %; Neutrophils # (auto) 5.04 K/uL (1.40-6.50); Neutrophils % (auto) 63.5 %; Platelet Count 321 K/uL (130-400); RDW Coefficient of Variation 13.5 % (11.5-14.5); RDW Standard Deviation 45.4 fL (36.4-46.3); Red Blood Count 3.08 M/uL (4.20-5.40); White Blood Count 7.94 K/ul (4.8-10.8)
[2024-02-13 07:04] LABS: Calcium 8.8 mg/dl (8.6-10.3); Creatinine Clr Calc Pharmacy 97.8 ml/min; Est GFR (African American) 111.3 ml/min; Potassium 3.9 mmol/L (3.5-5.1)
[2024-02-13] MEDS: INSULIN ASPART PER UNIT CHARGE SC SCH (09:19)
--- NOTE | 2024-02-13 11:38 | Hospitalist Progress Note ---
Date of Service February 13, 2024 Assessment & Plan (1) Fall: (2) Fracture, humerus: Plan: Patient is 73 year old female with PMH DM II, HTN, dyslipidemia, history of seizure disorder last seizure in 1962, GERD presented to ER complaint of fall with subsequent left shoulder pain. She didn't feel palpitation/dizziness/chest pain/warmth/nausea/vomiting surrounding fall. She felt weak and was aware she is about to fall and fell on her left side (tried to grab table nearby but couldn't). In ER vitals stable, glucose 300, other electrolytes unremarkable. Troponin negative x 2. CT Head: no acute intracranial abnormality CT C-spine: no acute fracture CXR: no acute infiltrate Left shoulder xray: Comminuted and displaced left humeral head/neck fracture CT left shoulder: 1. Acute, comminuted and displaced impacted proximal left humeral fracture is redemonstrated with fractures involving the greater tuberosity and surgical neck. 2. Subcentimeter intra-articular fracture fragments are noted in addition to a 1.2 cm fracture fragment displaced anteriorly within the adjacent deltoid muscle. 3. Moderate-sized hemarthrosis. Echo with EF of greater than 70%, LV wall motion normal. Ortho evaluated, status post close reduction and left humeral nail 02/09/2024. Pain management. Monitor H&H, lab in am Vitamin D level low, started vitamin D supplementation 02/03. Recommend outpatient DEXA scan. pt agreeable to rehab. Closed fracture of proximal end of right tibia: severe osteoarthritis right knee (s/p corticosteroid knee injection) Repeat knee x-ray concerning for fracture, CT of the knee was done with confirmation of acute nondisplaced proximal tibial fracture. Pain management, bowel regimen. Orthopedic on board, nonweightbearing RLE. appreciate recommendation. Follow-up with orthopedics as an outpatient. Eliquis for DVT prophylaxis due to immobility. (3) Hyperglycemia: (4) Diabetes mellitus, type II: Plan: Random glucose 300 in ER A1c: 7.9 on 11/17/23; a1c 7.6 this admission Hold home metformin, repaglinide Novolog sliding scale per protocol Glycemic pharmacy consulted. (5) Hypertension: Plan: Continue amlodipine, HCTZ, lisinopril with holding parameters. As needed blood pressure medications on board. (6) Hypercholesterolemia: Plan: Continue atorvastatin (7) History of seizure disorder: Plan: No history seizure since 1962 DVT Prophylaxis agata Full Code Follows with Dr Swift for routine care Dispositionpeer to peer done for acute rehab; rejected on February 12, 2024. Will likely need subacute rehab placement. Updated case management. Please note the above document was generated using voice recognition software. It may contain grammatical, syntax or spelling errors. Any formal questions or concerns about the content, text or information contained within the body of this dictation should be directly addressed to the provider for clarification Admission and Anticipated Discharge Date Admission Date: February 03, 2024 Subjective Patient seen and examined at bedside. Comfortable; not in distress. Denies fever, chills, chest pain, shortness of breath, abdominal pain or urinary symptoms. No significant overnight events Review of Systems Review of Systems: All systems reviewed & are unremarkable except as noted in Subjective Physical Exam Physical Exam: GENERAL APPEARANCE: AxOx4, generally well-appearing female, no acute distress. HEART: Normal rate and regular rhythm, normal S1/S1, no m/r/g LUNGS: CTAB, moving air well. No crackles or wheezes are heard. ABDOMEN: Soft, nontender, nondistended with good bowel sounds heard. BACK: No CVAT, no obvious deformity. EXTREMITIES: Without cyanosis, clubbing or edema. LUE dressing c/d/i, in sling. NEUROLOGICAL: Grossly nonfocal. Alert and oriented, moving all 4 extremities. Skin: Warm and dry without any rash. Results & Data Results & Data Vital Signs (Past 12 Hours) Vital Signs Temp Pulse Pulse Resp BP Pulse Ox O2 Del Method 02/13/24 10:51 69 02/13/24 07:42 36.6 C 64 18 150/75 H 95 Room Air 02/13/24 03:53 36.8 C 73 18 126/67 94 Room Air 02/12/24 23:40 36.8 C 95 H 20 151/74 H 97 Room Air (1) Fall Encounter type: initial encounter Qualified Code(s): W19.XXXA - Unspecified fall, initial encounter (2) Fracture, humerus Encounter type: initial encounter Fracture alignment: displaced Fracture type: closed Humerus Location: surgical neck Laterality: left
--- NOTE | 2024-02-14 10:47 | Hospitalist Progress Note ---
Date of Service February 14, 2024 Assessment & Plan (1) Fall: (2) Fracture, humerus: Plan: Patient is 73 year old female with PMH DM II, HTN, dyslipidemia, history of seizure disorder last seizure in 1962, GERD presented to ER complaint of fall with subsequent left shoulder pain. She didn't feel palpitation/dizziness/chest pain/warmth/nausea/vomiting surrounding fall. She felt weak and was aware she is about to fall and fell on her left side (tried to grab table nearby but couldn't). In ER vitals stable, glucose 300, other electrolytes unremarkable. Troponin negative x 2. CT Head: no acute intracranial abnormality CT C-spine: no acute fracture CXR: no acute infiltrate Left shoulder xray: Comminuted and displaced left humeral head/neck fracture CT left shoulder: 1. Acute, comminuted and displaced impacted proximal left humeral fracture is redemonstrated with fractures involving the greater tuberosity and surgical neck. 2. Subcentimeter intra-articular fracture fragments are noted in addition to a 1.2 cm fracture fragment displaced anteriorly within the adjacent deltoid muscle. 3. Moderate-sized hemarthrosis. Echo with EF of greater than 70%, LV wall motion normal. Ortho evaluated, status post close reduction and left humeral nail 02/09/2024. Pain management. Monitor H&H, lab in am Vitamin D level low, started vitamin D supplementation 02/03. Recommend outpatient DEXA scan. pt agreeable to rehab. Closed fracture of proximal end of right tibia: severe osteoarthritis right knee (s/p corticosteroid knee injection) Repeat knee x-ray concerning for fracture, CT of the knee was done with confirmation of acute nondisplaced proximal tibial fracture. Pain management, bowel regimen. Orthopedic on board, nonweightbearing RLE. appreciate recommendation. Follow-up with orthopedics as an outpatient. Eliquis for DVT prophylaxis due to immobility. (3) Hyperglycemia: (4) Diabetes mellitus, type II: Plan: Random glucose 300 in ER A1c: 7.9 on 11/17/23; a1c 7.6 this admission Hold home metformin, repaglinide Novolog sliding scale per protocol Glycemic pharmacy consulted. (5) Hypertension: Plan: Continue amlodipine, HCTZ, lisinopril with holding parameters. As needed blood pressure medications on board. (6) Hypercholesterolemia: Plan: Continue atorvastatin (7) History of seizure disorder: Plan: No history seizure since 1962 DVT Prophylaxis agata Full Code Follows with Dr Swift for routine care Dispositionpeer to peer done for acute rehab; rejected on February 12, 2024. Will likely need subacute rehab placement. Updated case management. Please note the above document was generated using voice recognition software. It may contain grammatical, syntax or spelling errors. Any formal questions or concerns about the content, text or information contained within the body of this dictation should be directly addressed to the provider for clarification Admission and Anticipated Discharge Date Admission Date: February 03, 2024 Subjective Patient seen and examined at bedside. Comfortable; not in distress. Denies fever, chills, chest pain, shortness of breath, abdominal pain or urinary symptoms. No significant overnight events Review of Systems Review of Systems: All systems reviewed & are unremarkable except as noted in Subjective Physical Exam Physical Exam: GENERAL APPEARANCE: AxOx4, generally well-appearing female, no acute distress. HEART: Normal rate and regular rhythm, normal S1/S1, no m/r/g LUNGS: CTAB, moving air well. No crackles or wheezes are heard. ABDOMEN: Soft, nontender, nondistended with good bowel sounds heard. BACK: No CVAT, no obvious deformity. EXTREMITIES: Without cyanosis, clubbing or edema. LUE dressing c/d/i, in sling. NEUROLOGICAL: Grossly nonfocal. Alert and oriented, moving all 4 extremities. Skin: Warm and dry without any rash. Results & Data Results & Data Vital Signs (Past 12 Hours) Vital Signs Temp Pulse Pulse Resp BP Pulse Ox O2 Del Method 02/14/24 07:57 71 02/14/24 07:04 36.9 C 70 18 150/76 H 94 Room Air 02/14/24 03:48 36.5 C 76 20 151/78 H 96 Room Air (1) Fall Encounter type: initial encounter Qualified Code(s): W19.XXXA - Unspecified fall, initial encounter (2) Fracture, humerus Encounter type: initial encounter Fracture alignment: displaced Fracture type: closed Humerus Location: surgical neck Laterality: left
--- NOTE | 2024-02-15 10:54 | Orthopedic Progress Note ---
Date of Service February 15, 2024 Assessment & Plan (1) Fracture, humerus: Plan: NWB LUE, sling, She was encouraged to do active movement of hand wrist and elbow but movement of the shoulder will be passive for at least 4 to 6 weeks postop. NWB RLE, ROM as tolerated, can do leg lifts Recommend eliquis for DVT phx Pain control per primary Likely will need placement due to mobility issues, may require wheelchair Ice right knee and left shoulder PRN Encouraged elevating hand above her heart to help with swelling in her distal LUE Follow up with [facility] in two weeks Patient verbalized understanding and is agreement plan. (2) Closed fracture of proximal end of right tibia: Plan: Nonweightbearing. Nonoperative management. Depending on her disposition we may get some follow-up x-rays of the knee prior to discharge. Admission and Anticipated Discharge Date Admission Date: February 03, 2024 Subjective Doing well. Awaiting placement. Acute care rehab was denied. She is trying to keep weight off of her right knee but does note that she does put weight on occasionally with transfers. She has been doing exercises for the right knee and left shoulder. There is minimal pain in the left shoulder and she thinks her swelling is improved. She has no word on the return of her 's remains to [facility]. Her daughter lives in [place]. Her has 2 living brothers. It has been 3 weeks since her . Physical Exam Physical Exam: She has limited range of motion of her right knee without significant swelling or bruising. Examination of the left upper extremity of her notes that she has full movement of fingers and wrist. Her gross neurovascular function is intact. There is bruising and swelling in the hand arm and elbow area which seems to be improving compared to previous. Her incisions left shoulder are benign and new dressing is applied. ABD placed in the armpit. Instructed on loosening sling to do acti ve movement of elbow which presently is 0/40/100. Results & Data Vital Signs (Past 12 Hours) Vital Signs Temp Pulse Pulse Resp BP Pulse Ox O2 Del Method 02/15/24 08:12 36.9 C 71 17 156/87 H 95 Room Air 02/15/24 07:00 75 02/15/24 03:30 36.8 C 80 18 152/73 H 93 Room Air (1) Fracture, humerus Encounter type: initial encounter Fracture alignment: displaced Fracture type: closed Humerus Location: surgical neck Laterality: left
--- NOTE | 2024-02-15 11:03 | Hospitalist Progress Note ---
Date of Service February 15, 2024 Assessment & Plan (1) Fall: (2) Fracture, humerus: Plan: Patient is 73 year old female with PMH DM II, HTN, dyslipidemia, history of seizure disorder last seizure in 1962, GERD presented to ER complaint of fall with subsequent left shoulder pain. She didn't feel palpitation/dizziness/chest pain/warmth/nausea/vomiting surrounding fall. She felt weak and was aware she is about to fall and fell on her left side (tried to grab table nearby but couldn't). In ER vitals stable, glucose 300, other electrolytes unremarkable. Troponin negative x 2. CT Head: no acute intracranial abnormality CT C-spine: no acute fracture CXR: no acute infiltrate Left shoulder xray: Comminuted and displaced left humeral head/neck fracture CT left shoulder: 1. Acute, comminuted and displaced impacted proximal left humeral fracture is redemonstrated with fractures involving the greater tuberosity and surgical neck. 2. Subcentimeter intra-articular fracture fragments are noted in addition to a 1.2 cm fracture fragment displaced anteriorly within the adjacent deltoid muscle. 3. Moderate-sized hemarthrosis. Echo with EF of greater than 70%, LV wall motion normal. Ortho evaluated, status post close reduction and left humeral nail 02/09/2024. Pain management. Vitamin D level low, started vitamin D supplementation 02/03. Recommend outpatient DEXA scan. pt agreeable to rehab. Closed fracture of proximal end of right tibia: severe osteoarthritis right knee (s/p corticosteroid knee injection) Repeat knee x-ray concerning for fracture, CT of the knee was done with confirmation of acute nondisplaced proximal tibial fracture. Pain management, bowel regimen. Orthopedic on board, nonweightbearing RLE. appreciate recommendation. Follow-up with orthopedics as an outpatient. Eliquis for DVT prophylaxis due to immobility. (3) Hyperglycemia: (4) Diabetes mellitus, type II: Plan: Random glucose 300 in ER A1c: 7.9 on 11/17/23; a1c 7.6 this admission Hold home metformin, repaglinide Novolog sliding scale per protocol Glycemic pharmacy consulted. (5) Hypertension: Plan: Continue amlodipine, HCTZ, lisinopril with holding parameters. As needed blood pressure medications on board. (6) Hypercholesterolemia: Plan: Continue atorvastatin (7) History of seizure disorder: Plan: No history seizure since 1962 DVT Prophylaxis eliquis Full Code Follows with Dr Swift for routine care Dispositionpeer to peer done for acute rehab; rejected on February 12, 2024. Will likely need subacute rehab placement. Updated case management. Please note the above document was generated using voice recognition software. It may contain grammatical, syntax or spelling errors. Any formal questions or concerns about the content, text or information contained within the body of this dictation should be directly addressed to the provider for clarification Admission and Anticipated Discharge Date Admission Date: February 03, 2024 Subjective Patient seen and examined at bedside. She is comfortably sitting up on the chair at the side of the bed; not in distress. She reports that she is trying her best to not put weight on her right knee. She reports minimal pain on left shoulder. Review of Systems Review of Systems: All systems reviewed & are unremarkable except as noted in Subjective Physical Exam Physical Exam: GENERAL APPEARANCE: AxOx4, generally well-appearing female, no acute distress. HEART: Normal rate and regular rhythm, normal S1/S1, no m/r/g LUNGS: CTAB, moving air well. No crackles or wheezes are heard. ABDOMEN: Soft, nontender, nondistended with good bowel sounds heard. BACK: No CVAT, no obvious deformity. EXTREMITIES: Without cyanosis, clubbing or edema. LUE dressing c/d/i, in sling. NEUROLOGICAL: Grossly nonfocal. Alert and oriented, moving all 4 extremities. Skin: Warm and dry without any rash. Results & Data Results & Data Vital Signs (Past 12 Hours) Vital Signs Temp Pulse Pulse Resp BP Pulse Ox O2 Del Method 02/15/24 08:12 36.9 C 71 17 156/87 H 95 Room Air 02/15/24 07:00 75 02/15/24 03:30 36.8 C 80 18 152/73 H 93 Room Air (1) Fall Encounter type: initial encounter Qualified Code(s): W19.XXXA - Unspecified fall, initial encounter (2) Fracture, humerus Encounter type: initial encounter Fracture alignment: displaced Fracture type: closed Humerus Location: surgical neck Laterality: left
--- NOTE | 2024-02-15 12:48 | XRay Report ---
XR knee RT 4V HISTORY: 73 years-old Female pain acute right knee pain status post fall COMPARISON: 02/08/[address] TECHNIQUE: 4 views of the right knee FINDINGS: Severe tricompartmental osteoarthritis redemonstrated. Trace joint effusion. Arterial calcifications. Nondisplaced fracture of the posterior medial tibial plateau redemonstrated. No additional acute fra cture or dislocation. IMPRESSION: Unchanged alignment of the acute to subacute appearing nondisplaced fracture involving th e posterior aspect of the medial tibial plateau. ACT 112: Negative or not required by law. The above report was generated using voice recognition software. It may contain grammatical, syntax o r spelling errors. Electronically signed by: Mann Hoskins M.D. 02/15/2024 12:46 PM
--- NOTE | 2024-02-15 13:51 | Pharmacy Report ---
Pharmacy Glycemic Short Note 2 - Date of Service February 15, 2024 - Glycemic Short BSG Results (Last 24 hours): 02/14/24 02/14/24 02/15/24 17:27 20:13 08:27 POC Glucose 89 149 H 240 H 02/15/24 12:53 POC Glucose 111 H OUTPATIENT ANTIDIABETIC REGIMEN: * Metformin 1g PO BID * Prandin 1mg PO with breakfast and dinner * A1c 7.6% 02/04/24 ASSESSMENT: 02/14: * Patient received total of 84 units of insulin yesterday, of which 35 units were basal * Fasting BSG >200 - not clear if possibly some PO intake when taken, basal just increased yesterday -will continue current dose * BSGs tend to trend down from lunch to dinner, will have looser parameters for novolog at this time 02/11: * Patient received total 70 units of insulin yesterday; 25 units basal + 45 units bolus * BSGs yesterday were elevated. Novolog parameters for breakfast were tightened and separate MAR entry for breakfast only made. * Nurse yesterday documented against the MAR entries for breakfast today and tomorrow which removed the flag for the AM doses today and tomorrow. This resulted in patient not getting AM dose of Novolog today. Pre-lunch BSG was therefore elevated at 344 mg/dl. * Nurse today said she will be taking care of patient tomorrow as well. Asked her to make sure patient receives the insulin AM dose tomorrow even though she will not be flagged for it and still document on the AM entry as "unscheduled admin." * Novolog parameters tightened with lunch but will loosen back again with dinner. * Will continue basal insulin the same. 02/10 * Miladys received 76 units of insulin yesterday - increased needs likely due to dexamethasone dose given in OR on 02/09 PM * 25 units basal + 51 units bolus * BSGs: 178, 292, 227, 76 mg/dL * Fasting BSG trending downward. Suspect patient needs between 25-30 units of basal daily (while not on steroids). * Consistent elevation with lunch BSG. Will tighten carb coverage with breakfast . 02/09 * Patient received total of 57 units of insulin yesterday, of which 35 units were basal insulin * Fasting BSG 170 mg/dL - patient did receive steroids in OR last night. Received 8 units of correctional insulin overnight. * Anticipate steroid effects to wear off throughout the day today. Gave Lantus 25 units this AM - will add scale for basal at HS in case BSGs remain elevated 02/06 * 73 yo F, PMH DM II, HTN, dyslipidemia, history of seizure disorder last seizure in 1962, GERD presented to ER complaint of fall with subsequent left shoulder pain. Contusion of right knee and humerus fracture. No plan for surgery at this time. s/p knee cortisone injection and aspiration on 02/04. * Patient hyperglycemic and pharmacy consulted today, pt received 51 units of insulin yesterday, 10 units basal, fasting 252mg/dl today, will increase basal and tighten CF/CR at this time and titrate to goal blood sugar. PLAN FOR INPATIENT GLYCEMIC CONTROL: * Hold outpatient oral diabetes medications * Basal insulin * Lantus 30-35 units SQ qam * Bolus insulin * NovoLog per scale ACHS or Q6hrs while NPO * Goal Range: Low 110 mg/dL - High 140 mg/dL Breakfast * Correction Factor: 10 mg/dL/unit * Nutritional / Prandial insulin per carb ratio of 1 unit per 3 grams CHO consumed Lunch/dinner/HS * Correction Factor: 15 mg/dL/unit * Nutritional / Prandial insulin per carb ratio of 1 unit per 7 grams CHO consumed
--- NOTE | 2024-02-15 15:00 | Discharge Summary ---
Date of Service February 15, 2024 Admission HPI Per Admitting Provider Patient is 73 year old female with PMH DM II, HTN, dyslipidemia, history of seizure disorder last seizure in 1962, GERD presented to ER complaint of fall and left shoulder pain. History obtained from patient and outpatient chart review. Patient states was walking in [employer] and felt like she "was going to fall over", felt a little wobbly". Denies any vision changes, noted dizziness or lightheadedness, CP, SOB, paresthesias, speech changes. States fell onto left shoulder and after fall with significant pain to left shoulder. Doesn't think had LOC or passed out. She reports history vertigo that has symptoms of di zziness, nausea and vomiting but states did not have any vertigo symptoms today. States blood sugars have been high past week which she relates to stress. Reports her one week ago. hasn't been eating a much. Did take her medications today. Sleeps in recliner secondary to back pain, not having any SOB or orthopnea. Denies fever/chills, diaphoresis, N/V/D/C, CESAR, neck pain, CP, SOB, orthopnea, palpitations, cough, sore throat, rhinorrhea, abdominal pain, paresthesias, weakness, extremity edema, rashes, urinary symptoms. Right hand dominant. Admission Exam Per Admitting Provider GENERAL APPEARANCE: AxOx4, generally well-appearing female, no acute distress. HEENT: NC, AT. MMM. EOMI, clear conjunctiva, oropharynx clear. NECK: Supple without lymphadenopathy. No stiffness or restricted ROM. HEART: Normal rate and regular rhythm, normal S1/S1, no m/r/g LUNGS: CTAB, moving air well. No crackles or wheezes are heard. ABDOMEN: Soft, nontender, nondistended with good bowel sounds heard. BACK: No CVAT, no obvious deformity. EXTREMITIES: Without cyanosis, clubbing or edema. NEUROLOGICAL: Grossly nonfocal. Alert and oriented, moving all 4 extremities. CN not formally tested but appear grossly intact. Observed to ambulate with normal gait. Skin: Warm and dry without any rash. Principal Diagnosis Left humerus fracture status post close reduction and left humeral nail 02/09/2024 Closed fracture of proximal end of tibia Discharge Exam GENERAL APPEARANCE: AxOx4, generally well-appearing female, no acute distress. HEART: Normal rate and regular rhythm, normal S1/S1, no m/r/g LUNGS: CTAB, moving air well. No crackles or wheezes are heard. ABDOMEN: Soft, nontender, nondistended with good bowel sounds heard. BACK: No CVAT, no obvious deformity. EXTREMITIES: Without cyanosis, clubbing or edema. LUE dressing c/d/i, in sling. NEUROLOGICAL: Grossly nonfocal. Alert and oriented, moving all 4 extremities. Skin: Warm and dry without any rash. Discharge Data Allergies Allergy/AdvReac Type Severity Reaction Status Date / Time naproxen Allergy Unknown TACHYCARDIA, Verified 02/03/24 12:17 DIZZINESS Consultations 02/03/24 12:36 ED Decision to Admit Stat 02/03/24 14:28 Consult Orthopedic Surgery Routine Procedures Performed Operation Date: 02/09/24 07:00 Actual Procedures p Closed Reduction, Left Humeral Nail(Left) - Asher Padilla MD Ordered Studies 02/03/24 12:35 CT cervical spine wo con Stat CT face [CT facial bones wo con] Stat CT head/brain wo con Stat 02/08/24 08:51 CT knee RT wo con Routine 02/08/24 09:28 CT shoulder LT wo con Routine 02/09/24 07:00 FL humerus LT 2V Routine 02/09/24 15:12 US - OR guided needle placemen Routine Hospital Course (1) Fall: (2) Fracture, humerus: (3) Hyperglycemia: (4) Diabetes mellitus, type II: (5) Hypertension: (6) Hypercholesterolemia: (7) History of seizure disorder: Patient is 73 year old female with PMH DM II, HTN, dyslipidemia, history of seizure disorder last seizure in 1962, GERD presented to ER complaint of fall with subsequent left shoulder pain. She didn't feel palpitation/dizziness/chest pain/warmth/nausea/vomiting surrounding fall. She felt weak and was aware she is about to fall and fell on her left side (tried to grab table nearby but couldn't). In ER vitals stable, glucose 300, other electrolytes unremarkable. Troponin negative x 2. CT Head: no acute intracranial abnormality CT C-spine: no acute fracture CXR: no acute infiltrate Left shoulder xray: Comminuted and displaced left humeral head/neck fracture CT left shoulder: 1. Acute, comminuted and displaced impacted proximal left humeral fracture is redemonstrated with fractures involving the greater tuberosity and surgical neck. 2. Subcentimeter intra-articular fracture fragments are noted in addition to a 1.2 cm fracture fragment displaced anteriorly within the adjacent deltoid muscle. 3. Moderate-sized hemarthrosis. Echo with EF of greater than 70%, LV wall motion normal. Ortho evaluated, status post close reduction and left humeral nail 02/09/2024. NWB LUE, sling, encouraged to do active movement of hand wrist and elbow but movement of the shoulder will be passive for at least 4 to 6 weeks postop. On Eliquis for DVT prophylaxis Closed fracture of proximal end of right tibia: CT of the knee showed acute nondisplaced proximal tibial fracture. Orthopedic on board, nonweightbearing RLE. Follow-up with orthopedics as an outpatient in 2 weeks Please note the above document was generated using voice recognition software. It may contain grammatical, syntax or spelling errors. Any formal questions or concerns about the content, text or information contained within the body of this dictation should be directly addressed to the provider for clarification Total Time Total Time Spent Total Time Spent (In Minutes): 35 Total Time Includes: Examination of the Patient, Discharge Planning, Medication Reconciliation, Communication With Other Providers and Other Discharge Plan Discharge Items Patient Disposition: Home - Self-Care Reason For Visit: HUMERUS FRACTURE Discharge Diagnosis: Left proximal humerus fracture right tibial plateau fracture Activity: Per Instructions section Weightbearing: Left non-weightbearing Weightbearing Comment: upper extremity; nonweightbearing on right lower extremity Non-emergency contact: Surgeon Call non-emergency contact if: your symptoms worsen and your pain is not controlled Follow-up/Referrals: Pop Swift MD [Primary Care Provider] - Asher Padilla MD [Surgeon] - 02/26/24 12:30 pm Diet: Regular Addtl Attending Provider Instructions: You were admitted to the hospital for fall and found to have fracture on the left humerus and right tibia. You are prescribed Eliquis 2.5 mg twice a day for 28 days to prevent blood clot. If insurance does not cover for Eliquis; you can take Lovenox 40 mg subcu daily or heparin 5000 units every 8 hours for next 28 days. Please follow orthopedic instructions below. Addtl Property Claim Rep Provider Instructions: Orthopedic Instructions: - Nonweightbearing left upper extremity. Use shoulder immobilizer at all times. -Allowed for active range of motion of left hand, wrist, elbow. Passive range of motion of left shoulder. -May be comfortable with sitting in an upright position with head of bed elevated. -Ice to left shoulder and right knee as needed for pain and swelling. -Pain medication as prescribed and as needed for pain and left shoulder. -Non weight bearing right lower extremity. Use wheelchair to assist with ambulation. -Elevate right leg as needed for pain and swelling. -Follow-up with Dr. Padilla in 2 weeks as an outpatient. Call [phone] with any increased pain, swelling, questions or concerns. Pending Studies at Discharge: No Stand-Alone Forms: My Rentlord, Smoking Cessation Medications and DC Order Prescriptions: New Eliquis 2.5 mg Tablet 2.5 mg PO BID 28 Days Qty: 56 0RF acetaminophen [Tylenol Extra Strength] 500 mg Tablet 1,000 mg PO Q8 PRN (Reason: fever or pain) Qty: 30 0RF polyethylene glycol 3350 [Miralax] 17 gram Powder In Packet 17 g PO DAILY PRN (Reason: constipation) Qty: 30 0RF diclofenac sodium [Voltaren Arthritis Pain] 1 % Gel 2 g EXT Q6H PRN (Reason: pain on should) Qty: 100 0RF cholecalciferol (vitamin D3) 125 mcg (5,000 unit) Tablet 125 mcg PO QAM Qty: 30 0RF omeprazole 20 mg capsule,delayed release(DR/EC) 20 mg PO DAILY Qty: 30 0RF Continued atorvastatin 40 mg tablet 40 mg PO QPM Qty: 30 0RF cyanocobalamin (vitamin B-12) [Vitamin B-12] 1,000 mcg Tablet 1,000 mcg PO DAILY Qty: 30 0RF Rx Instructions: noon amlodipine 5 mg tablet 5 mg PO QPM Qty: 30 0RF aspirin 81 mg Tablet,Delayed Release (Dr/Ec) 81 mg PO PM Qty: 30 0RF lisinopril 40 mg tablet 40 mg PO QAM Qty: 30 0RF metformin 500 mg tablet extended release 24 hr 1,000 mg PO BID Qty: 60 0RF repaglinide 1 mg tablet See Rx Instructions .ROUTE .COMPLEX Qty: 60 0RF Rx Instructions: Take 1mg by mouth at lunchtime and 1mg by mouth at supper time. Changed hydrochlorothiazide 25 mg tablet 25 mg PO DAILY Qty: 30 0RF Discharge Orders: Discharge Order (Routine); Ordered 02/15/24 Ordered By: Jin Haddad/Other Patient Handouts: Managing Type 2 Diabetes Admission Data Admit Date/Time: 02/03/24 13:33 Attending Provider: Jin Everett Admit Provider: Kierra Boland Primary Care Provider: Pop Swift Other Providers: Kierra Boland; Asher Padilla; [facility]; [place],[facility], [place]
== END 2024-02-15 16:12 | DRG 493 ==
LOC: ED 10:38 → SUATTDRO 13:33 → 2N 13:33